=== PATIENT | male | born 2005 | race Caucasian/White ===

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

== ENCOUNTER 2024-03-28 12:22 | Emergency (ER) | payer OTHER, SELFPAY ==
[2024-03-28 12:25] VITALS: BP 133/79; PULSE 85; RESP 18; TEMP 37.5; O2SAT 99
--- NOTE | 2024-03-28 12:55 | ED.URI ---
HPI - URI/Sore Throat General Chief Complaint: Upper Respiratory Infection Stated Complaint: Cough/Sore Throat Time Seen by Provider: 03/28/24 12:50 Source: patient Mode of arrival: ambulatory Limitations: no limitations History of Present Illness HPI Narrative: Huey is a 18-year-old male patient presenting to the clinic today with complaints of runny nose, cough, and sore throat x4 days. He denies any known fever or chills. Denies chest pain or shortness of breath. MD elicited complaint: sore throat and nasal congestion Related Data Home Medications ?Medication ?Instructions ?Recorded ?Confirmed ?Last Taken ?Type albuterol sulfate 90 mcg/actuation 2 puff inhalation Q4-6H PRN 02/09/19 03/28/24 03/01/21 History aerosol inhaler (Ventolin HFA) Wheezing bupropion HCl 150 mg 24 hr tablet, 300 mg PO DAILY 03/01/21 03/28/24 03/01/21 History extended release citalopram 40 mg tablet 40 mg PO DAILY 03/01/21 03/28/24 03/01/21 History aripiprazole 5 mg tablet 5 mg PO DAILY 12/14/22 03/28/24 Unknown History ixekizumab 80 mg/mL subcutaneous 80 mg subcut MONTHLY 12/14/22 03/28/24 Unknown History auto-injector (Taltz Autoinjector) Allergies Allergy/AdvReac Type Severity Reaction Status Date / Time No Known Allergies Allergy Verified 03/28/24 12:43 Review of Systems Review of Systems: Pertinent positives per HPI. Patient denies any fever, chills, rash, headache, visual changes, dizziness, shortness of breath, chest pain, palpitations, nausea, vomiting, diarrhea, constipation, abdominal pain, or any urinary issues. [facility] [place] Past Medical History Medical History Psoriasis Asthma Surgical History Surgical History Hx of tonsillectomy Family History Family History Mother Asthma Sibling Asthma Social History Social History Second hand tobacco smoke exposure: No Comments At the time of my signature, I reviewed and agree with the nursing past medical, surgical, social, and family history. There is no relevant family history pertinent to the patient complaint. Exam Narrative: General: Well-developed, obese, in no apparent distress Head: Normocephalic, atraumatic Eyes: Pupils equally round and reactive to light bilaterally, EOM intact, sclera and conjunctive clear, no discharge, lids normal Ears: TMs intact and congested, ear canals clear, no drainage, grossly hearing normal. Nose: Nares patent, clear nasal discharge, no inflammation, no sinus tenderness. Mouth: Oral pharynx mildly red with bilateral tonsillar enlargement without lesions or masses, good dentition, MMM. Postnasal drip Neck: Supple, trachea midline, no enlargement of anterior or posterior cervical nodes, no thyroid masses or goiter palpable. Cardio: Regular rate and rhythm, s1 and s2 normal, no murmur appreciated. Resp: Clear to auscultation bilaterally, no rhonchi, rales, wheezing or rubs Course Course Emergency Course: Portions of this record may have been created with voice recognition software. Level of Care: Express Care Visit Vital Signs Vital signs: Vital Signs Temperature 37.5 C 03/28/24 12:25 Pulse Rate 85 03/28/24 12:25 Respiratory Rate 18 03/28/24 12:25 Blood Pressure 133/79 03/28/24 12:25 Pulse Oximetry 99 03/28/24 12:25 Temperature 37.5 C 03/28/24 12:25 Pulse Rate 85 03/28/24 12:25 Respiratory Rate 18 03/28/24 12:25 Blood Pressure 133/79 03/28/24 12:25 Pulse Oximetry 99 03/28/24 12:25 Vital signs reviewed MDM - URI/Sore Throat MDM Narrative Medical decision making narrative: At the time of visit patient is resting comfortably on the exam table. Patient appears to be nontoxic. Labs: COVID, influenza, and strep test were all performed. Plan: I suspect patient has URI/pharyngitis. We will send in prescription for some prednisone for the congestion. Supportive measures were discussed with the patient and they voiced understanding discharge instructions and agrees to treatment plan. Return precautions reviewed Differential Diagnosis Differential diagnosis: Likely upper respiratory infection, otitis media, sinusitis, viral infection, bronchitis, influenza, pharyngitis and other (COVID) Discharge Plan Discharge Clinical Impression: Upper respiratory infection Qualifiers: URI type: unspecified URI Qualified Code(s): J06.9 - Acute upper respiratory infection, unspecified Pharyngitis Qualifiers: Pharyngitis/tonsillitis etiology: unspecified etiology Qualified Code(s): J02.9 - Acute pharyngitis, unspecified Patient Disposition: Home, Self-Care Condition: Stable Instructions: Antibiotic Form, Pharyngitis (ED), Upper Respiratory Infection (ED) Additional Instructions: COVID, strep, and influenza testing was negative in the clinic today. Strep test was negative in the clinic today. We will send strep for culture. Take prescription medications only as prescribed-prednisone Increase fluids and stay well hydrated Tylenol/motrin for pain/fever Flonase and OTC antihistamines as directed Vicks vapor rub to open sinuses Sinus rinses for congestion Cepacol spray, cough drops, throat lozenges, warm tea with honey/lemon, gargle salt water to soothe throat BRAT diet for diarrhea Clear liquids x 24 hours then advance as tolerated for nausea/vomiting Go to the ED if you develop a worsening in your condition- high fever not controlled by Tylenol or Motrin, dehydration, weakness, lethargy, shortness of breath, or chest pain. Follow up with your PCP in 3-5 days if symptoms persist. Patient Language: Palauan Prescriptions: New prednisone 20 mg tablet 40 mg PO DAILY 5 Days Qty: 10 0RF No Action Taltz Autoinjector 80 mg/mL auto-injector 80 mg SUBCUT MONTHLY aripiprazole 5 mg tablet 5 mg PO DAILY albuterol sulfate [Ventolin HFA] 90 mcg/actuation Hfa Aerosol Inhaler 2 puff INHALATION Q4-6H PRN (Reason: Wheezing) citalopram 40 mg tablet 40 mg PO DAILY bupropion HCl 150 mg tablet extended release 24 hr 300 mg PO DAILY albuterol sulfate 90 mcg/actuation HFA aerosol inhaler 2 puff inhalation QID PRN (Reason: shortness of breath or wheezing) Qty: 6.7 0RF Follow-up/Referrals: Denis,DO Luis [Primary Care Provider] - Time of Disposition: 13:21 Quality NIHSS Nursing Documentation ED NIHSS nursing documentation: reviewed/agree
[2024-03-28 15:15] LABS: EDCOVIDSCREEN Negative (Negative); EDINFLUASCREEN Negative (Negative); EDINFLUBSCREEN Negative (Negative); EDSTREPNEGPOS1 Negative (Negative)
== END 2024-03-28 12:55 | disposition home or self-care (01) ==
PROVIDERS: Emergency Provider Nurse Practitioner Family; PCP Student in an Organized Health Care Education/Training Program
DX: J06.9 Acute upper respiratory infection, unspecified (principal); Z20.822 Contact with and (suspected) exposure to COVID-19
CPT/HCPCS: 87081; 87426; 87804; 87880; 99213; G0463

== ENCOUNTER 2024-04-16 19:19 | Emergency (ER) | payer OTHER, SELFPAY ==
--- NOTE | 2024-04-16 19:29 | ED_ITS ---
HPI - Wound/Laceration General Chief Complaint: Wound/Laceration Stated Complaint: left thumb injury Time Seen by Provider: 04/16/24 19:26 Source: patient and RN notes reviewed Mode of arrival: ambulatory Limitations: no limitations History of Present Illness HPI narrative: 18-year-old male presents with concern for laceration to the tip of the 1st digit of the left hand. Reports just prior to arrival he was making a final would err week are when he cut the finger with a chisel. He is up-to-date on his tetanus vaccination. Related Data Home Medications ?Medication ?Instructions ?Recorded ?Confirmed ?Last Taken ?Type albuterol sulfate 90 mcg/actuation 2 puff inhalation Q4-6H PRN 02/09/19 03/28/24 03/01/21 History aerosol inhaler (Ventolin HFA) Wheezing bupropion HCl 150 mg 24 hr tablet, 300 mg PO DAILY 03/01/21 03/28/24 03/01/21 History extended release citalopram 40 mg tablet 40 mg PO DAILY 03/01/21 03/28/24 03/01/21 History aripiprazole 5 mg tablet 5 mg PO DAILY 12/14/22 03/28/24 Unknown History ixekizumab 80 mg/mL subcutaneous 80 mg subcut MONTHLY 12/14/22 03/28/24 Unknown History auto-injector (Taltz Autoinjector) Allergies Allergy/AdvReac Type Severity Reaction Status Date / Time No Known Allergies Allergy Verified 04/16/24 19:28 Review of Systems 2 Review of Systems: CONSTITUTIONAL: Denies malaise, chills, sweats, or fever. SKIN: Reports laceration to the 1st digit of the left hand MUSCULOSKELETAL: Denies muscle skeletal pain NEUROLOGIC: Denies numbness, weakness All systems reviewed & are unremarkable except as noted in HPI and below PMFSH Past Medical History Medical History Psoriasis Asthma Surgical History Surgical History Hx of tonsillectomy Family History Family History Mother Asthma Sibling Asthma Social History Social History Second hand tobacco smoke exposure: No Comments At time of signature, agree with nursing past medical, surgical, social and family history. There is no relevant family history pertinent to the presenting complaint Exam 2 Narrative: GENERAL: Well-appearing, well-nourished, and in no acute distress. HEAD: Normocephalic, atraumatic. EYES: PERRLA, conjunctivae clear, and EOMI. ENT: Mucous membranes moist. NECK: Supple. No lymphadenopathy CHEST: Clear to auscultation. No respiratory distress. HEART: Regular rate and rhythm. SKIN: Warm, dry. 1 cm superficial linear laceration noted to the distal 1st digit of the left hand on the palmar aspect NEURO: Alert and oriented x3. PSYCH: Normal mood and affect Extrem: Hand/finger images: 1. 1 cm superficial linear laceration noted to the distal 1st digit of the left hand on the palmar aspect Course Course Emergency Course: Patient is aware of diagnosis, understands and agrees to treatment plan. Anticipatory guidance given. Patient agrees to follow-up as directed and is aware of reasons to seek care at the emergency department. Portions of this record may have been created with voice recognition software Level of Care: Express Care Visit Vital Signs Vital signs: Vital Signs Temperature 98.1 F 04/16/24 19:30 Pulse Rate 98 04/16/24 19:30 Respiratory Rate 16 04/16/24 19:30 Blood Pressure 152/86 H 04/16/24 19:30 Pulse Oximetry 99 04/16/24 19:30 Oxygen Delivery Room Air 04/16/24 19:30 Temperature 98.1 F 04/16/24 19:30 Pulse Rate 98 04/16/24 19:30 Respiratory Rate 16 04/16/24 19:30 Blood Pressure 152/86 H 04/16/24 19:30 Pulse Oximetry 99 04/16/24 19:30 Oxygen Delivery Room Air 04/16/24 19:30 Reviewed. Procedures Laceration Laceration 1: Date: 04/16/24 Time: 19:30 Site: hand Side (If applicable): left Size (cm): 1 Description: linear Depth: simple, single layer Pre-repair: irrigated ====== Skin Level ====== Skin layer closed with: dermabond ====== Subcutaneous Layer ====== ====== Muscle Layer ====== ====== Tendon Layer ====== MDM - Wound/Laceration MDM Narrative Medical decision making narrative: Wound explored for foreign body and copious irrigation provided with no evidence of FB. Discussed the potential of retained foreign body with the patient and signs/symptoms that should prompt the patient to immediately go to the ED for reevaluation. The laceration was identified to be [XXX] cm in length and located at [XXX]. The laceration was cleansed with [XXX] and no debris was noted. Local anesthesia was obtained by injecting 1% lidocaine at the laceration site. The laceration was then irrigated with 500cc of high-pressure irrigation. The wound was explored and no foreign bodies were found. There was no evidence of tendon or nerve lacerations. The wound was closed with [ XXX suture type, number, and technique]. A sterile dressing was then applied and anticipatory guidance was provided. Tetanus prophylaxis [(was/was not)] given Differential Diagnosis Differential diagnosis: Likely laceration, abrasion and avulsion of skin Critical Care Time Critical Care Time Critical Care Time: No Discharge Plan Discharge Clinical Impression: Finger laceration Patient Disposition: Home, Self-Care Condition: Stable Instructions: Finger Laceration (ED) Additional Instructions: Skin adhesive care: -adhesive works like a bandage; do not use antibiotic ointment as it can break down the adhesive -You can shower while the adhesive is on your skin, but do not take a bath or soak or scrub the area for 7-10 days. Dry your skin by patting it gently with a towel. -The adhesive will peel off on its own; usually by 5-10days. If after 10 days, you still have adhesive on you, you can use antibiotic ointment or petroleum jelly to get it off. After you heal, you should protect the scar from the sun. Use sunscreen on the area or wear clothes or a hat that covers the scar. Follow up with your PCP as needed If you have any worsening of symptoms, redness, swelling, fever, or drainage, or any other concerns please follow up with your PCP or go to the ED immediately. Patient Language: Romanian Prescriptions: No Action Taltz Autoinjector 80 mg/mL auto-injector 80 mg SUBCUT MONTHLY aripiprazole 5 mg tablet 5 mg PO DAILY albuterol sulfate [Ventolin HFA] 90 mcg/actuation Hfa Aerosol Inhaler 2 puff INHALATION Q4-6H PRN (Reason: Wheezing) citalopram 40 mg tablet 40 mg PO DAILY bupropion HCl 150 mg tablet extended release 24 hr 300 mg PO DAILY albuterol sulfate 90 mcg/actuation HFA aerosol inhaler 2 puff inhalation QID PRN (Reason: shortness of breath or wheezing) Qty: 6.7 0RF prednisone 20 mg tablet 40 mg PO DAILY 5 Days Qty: 10 0RF Follow-up/Referrals: Denis,DO Luis [Primary Care Provider] - Time of Disposition: 19:35
[2024-04-16 19:30] VITALS: BP 152/86; PULSE 98; RESP 16; TEMP 36.7; O2SAT 99
== END 2024-04-16 19:40 | disposition home or self-care (01) ==
PROVIDERS: Emergency Provider Nurse Practitioner; PCP Student in an Organized Health Care Education/Training Program
DX: S61.012A Laceration without foreign body of left thumb without damage to nail, initial encounter (principal); W27.0XXA Contact with workbench tool, initial encounter; J45.909 Unspecified asthma, uncomplicated; L40.9 Psoriasis, unspecified
CPT/HCPCS: 12001; 99212; G0463

== ENCOUNTER 2024-07-06 15:46 | Emergency (ER) | payer OTHER, SELFPAY ==
[2024-07-06 15:55] VITALS: PULSE 88
[2024-07-06 15:57] VITALS: BP 107/78; PULSE 149; RESP 18; TEMP 36.8; O2SAT 97
--- NOTE | 2024-07-06 16:18 | PC.NURSE ---
1550 HEART RATE APICALLY 88.
[2024-07-06 16:25] LABS: EDCOVIDSCREEN Negative (Negative); EDINFLUASCREEN Negative (Negative); EDINFLUBSCREEN Negative (Negative)
--- NOTE | 2024-07-06 16:35 | ED.URI ---
HPI - URI/Sore Throat General Chief Complaint: Upper Respiratory Infection Stated Complaint: cough,congestion,pain in back Time Seen by Provider: 07/06/24 16:26 Source: patient and RN notes reviewed Mode of arrival: ambulatory Limitations: no limitations History of Present Illness HPI Narrative: Patient presents today complaining of 3 day history of nasal congestion and postnasal drip, with a 2 day history of cough and shortness of breath, with some mid back pain since yesterday. Denies fever or known sick contacts. History of asthma. He has been using Kristy and albuterol nebulizer treatments without much relief. Last treatment was approximately 3 hours prior to arrival. Related Data Home Medications ?Medication ?Instructions ?Recorded ?Confirmed ?Last Taken ?Type bupropion HCl 150 mg 24 hr tablet, 300 mg PO DAILY 03/01/21 03/28/24 03/01/21 History extended release citalopram 40 mg tablet 40 mg PO DAILY 03/01/21 03/28/24 03/01/21 History aripiprazole 5 mg tablet 5 mg PO DAILY 12/14/22 03/28/24 Unknown History ixekizumab 80 mg/mL subcutaneous 80 mg subcut MONTHLY 12/14/22 03/28/24 Unknown History auto-injector (Taltz Autoinjector) Allergies Allergy/AdvReac Type Severity Reaction Status Date / Time No Known Allergies Allergy Verified 07/06/24 16:28 Review of Systems Review of Systems: CONSTITUTIONAL: Denies body aches, fever, chills, or sweats. EYES: Denies visual changes, redness, or discharge. ENT: + congestion, postnasal drip. CARDIOVASCULAR: Denies chest pain, palpitations, or edema. RESPIRATORY:+ cough, shortness of breath GASTROINTESTINAL: Denies abdominal pain, nausea, vomiting, or diarrhea. GENITOURINARY: Denies dysuria or hematuria. SKIN: Denies rash, itching, or wounds. MUSCULOSKELETAL: Deniesjoint pain, or myalgia.+ midback pain NEUROLOGIC: Denies headache, numbness, tingling, or weakness. PSYCH: Denies depression or anxiety. [facility] Past Medical History Medical History Psoriasis Asthma Surgical History Surgical History Hx of tonsillectomy Family History Family History Mother Asthma Sibling Asthma Social History Social History Second hand tobacco smoke exposure: No Comments At time of signature, I have reviewed and agree with nursing past medical, surgical, social and family history unless otherwise noted. Please see nursing chart for further information. There is no relevant family history pertinent to the presenting complaint Exam Narrative: GENERAL: Well-appearing, well-nourished, and in no acute distress. HEAD: Normocephalic, atraumatic. EYES: EOMI. No redness or drainage. Conjunctivae normal. ENT: Mucous membranes pink and moist. Nares clear. No rhinorrhea. TMs normal bilaterally. Throat normal. Uvula midline. NECK: Normal AROM. Supple. No lymphadenopathy. CHEST: No respiratory distress. Clear to auscultation. HEART: Regular rate and rhythm. No murmur appreciated. EXTREMITIES: Normal range of motion. No edema. SKIN: Warm, dry, no rash. Capillary refill normal. Normal skin turgor. NEURO: No focal deficits. Alert and oriented x3. Gait steady. PSYCH: Normal affect. No signs of depression or anxiety. Course Course Level of Care: Express Care Visit Vital Signs Vital signs: Vital Signs Pulse Rate 88 07/06/24 15:55 Temperature 98.2 F 07/06/24 15:57 Pulse Rate 149 H 07/06/24 15:57 Respiratory Rate 18 07/06/24 15:57 Blood Pressure 107/78 07/06/24 15:57 Pulse Oximetry 97 07/06/24 15:57 Oxygen Delivery Room Air 07/06/24 15:57 Reviewed MDM - URI/Sore Throat MDM Narrative Medical decision making narrative: COVID and influenza negative. Patient declines albuterol nebulizer treatment. He will be given a dose of dexamethasone and prescription for prednisone and Augmentin as he is immunosuppressed and uses Taltz for his psoriasis with increased risk for secondary bacterial infection from upper respiratory illness. Differential Diagnosis Differential diagnosis: Likely upper respiratory infection, viral infection, influenza and other (COVID, pneumonia, asthma exacerbation) Lab Data Attestation: I reviewed the patient's lab results. Labs: Lab Results 07/06/24 Range/Units 16:23 POC Influenza A Ag Negative (Negative) POC Influenza B Ag Negative (Negative) POC SARS CoV-2 Ag Negative (Negative) Critical Care Time Critical Care Time Critical Care Time: No Discharge Plan Discharge Clinical Impression: Upper respiratory infection Qualifiers: URI type: unspecified URI Qualified Code(s): J06.9 - Acute upper respiratory infection, unspecified Asthma exacerbation Qualifiers: Asthma severity: unspecified severity Asthma persistence: unspecified Qualified Code(s): J45.901 - Unspecified asthma with (acute) exacerbation Patient Disposition: Home, Self-Care Condition: Stable Instructions: Upper Respiratory Infection (DC) Additional Instructions: Please take the Augmentin and prednisone as directed. Start the prednisone tomorrow morning. Continue your albuterol nebulizer treatments as well. Start Mucinex to help break up any chest congestion. As discussed, if your symptoms worsen, please go to the ER for further evaluation. Patient Language: Luxembourgish Prescriptions: New prednisone 50 mg tablet 50 mg PO DAILY 5 Days Qty: 5 0RF amoxicillin-pot clavulanate 875-125 mg tablet 1 tablet PO Q12H 7 Days Qty: 14 0RF No Action Taltz Autoinjector 80 mg/mL auto-injector 80 mg SUBCUT MONTHLY aripiprazole 5 mg tablet 5 mg PO DAILY citalopram 40 mg tablet 40 mg PO DAILY bupropion HCl 150 mg tablet extended release 24 hr 300 mg PO DAILY Follow-up/Referrals: Denis,DO Luis [Primary Care Provider] - Stand Alone Forms: Work/School Release IP Time of Disposition: 16:57
[2024-07-06] MEDS: dexAMETHasone SOD PHOS INJ 10 MG/ML 1 ML VIAL IM (17:01)
== END 2024-07-06 17:05 | disposition home or self-care (01) ==
PROVIDERS: Emergency Provider Nurse Practitioner; PCP Student in an Organized Health Care Education/Training Program
DX: J06.9 Acute upper respiratory infection, unspecified (principal); J45.901 Unspecified asthma with (acute) exacerbation; Z20.822 Contact with and (suspected) exposure to COVID-19; L40.9 Psoriasis, unspecified
CPT/HCPCS: 87426; 87804; 99213; G0463; J1100

== ENCOUNTER 2024-07-16 09:41 | Emergency (ER) | payer OTHER, SELFPAY ==
[2024-07-16 09:50] VITALS: BP 152/77; PULSE 81; RESP 19; TEMP 36.2; O2SAT 98
--- NOTE | 2024-07-16 10:23 | ED_ITS ---
HPI - Nausea/Vomiting/Diarrhea General Chief complaint: Nausea/Vomiting/Diarrhea Stated complaint: Vomiting Time Seen by Provider: 07/16/24 10:15 Source: patient and RN notes reviewed Mode of arrival: ambulatory Limitations: no limitations History of Present Illness HPI Narrative: Patient presents today requesting a note to return to work. He has been on [place] for the past month and has had some intermittent vomiting. His work keep sending him home. States he vomits every day, 1-3 times per day. He does have an appointment tomorrow with his doctor to discuss this. Denies abdominal pain, fever, or any additional symptoms. He does have some nausea medication at the pharmacy, but has not yet picked it up. Related Data Home Medications ?Medication ?Instructions ?Recorded ?Confirmed ?Last Taken ?Type citalopram 40 mg tablet 40 mg PO DAILY 03/01/21 03/28/24 03/01/21 History ixekizumab 80 mg/mL subcutaneous 80 mg subcut MONTHLY 12/14/22 03/28/24 Unknown History auto-injector (Taltz Autoinjector) aripiprazole 10 mg tablet mg 07/16/24 Unknown History bupropion HCl 300 mg 24 hr tablet, mg PO 07/16/24 Unknown History extended release ergocalciferol (vitamin D2) 1,250 07/16/24 Unknown History mcg (50,000 unit) capsule pantoprazole 40 mg tablet,delayed mg PO 07/16/24 Unknown History release Allergies Allergy/AdvReac Type Severity Reaction Status Date / Time No Known Allergies Allergy Verified 07/16/24 09:43 Review of Systems Review of Systems: CONSTITUTIONAL: Denies body aches, fever, chills, or sweats. EYES: Denies visual changes, redness, or discharge. ENT: Denies rhinorrhea, congestion, sore throat, or otalgia. CARDIOVASCULAR: Denies chest pain, palpitations, or edema. RESPIRATORY: Denies cough or dyspnea. GASTROINTESTINAL: Denies abdominal pain, or diarrhea.+ nausea and vomiting GENITOURINARY: Denies dysuria or hematuria. SKIN: Denies rash, itching, or wounds. MUSCULOSKELETAL: Denies back pain, joint pain, or myalgia. NEUROLOGIC: Denies headache, numbness, tingling, or weakness. PSYCH: Denies depression or anxiety. [facility] Past Medical History Medical History Psoriasis Asthma Surgical History Surgical History Hx of tonsillectomy Family History Family History Mother Asthma Sibling Asthma Social History Social History Second hand tobacco smoke exposure: No Comments At time of signature, I have reviewed and agree with nursing past medical, surgical, social and family history unless otherwise noted. Please see nursing chart for further information. There is no relevant family history pertinent to the presenting complaint Exam Narrative: GENERAL: Well-appearing, well-nourished, and in no acute distress. HEAD: Normocephalic, atraumatic. EYES: EOMI. No redness or drainage. Conjunctivae normal. ENT: Mucous membranes pink and moist. NECK: Normal AROM. CHEST: No respiratory distress. Clear to auscultation. HEART: Regular rate and rhythm. No murmur appreciated. ABDOMEN: Soft, nontender, nondistended, normal active bowel sounds. EXTREMITIES: Normal range of motion. No edema. SKIN: Warm, dry, no rash. Capillary refill normal. Normal skin turgor. NEURO: No focal deficits. Alert and oriented x3. Gait steady. PSYCH: Normal affect. No signs of depression or anxiety. Course Course Level of Care: Express Care Visit Vital Signs Vital signs: Vital Signs Temperature 97.2 F L 07/16/24 09:50 Pulse Rate 81 07/16/24 09:50 Respiratory Rate 19 07/16/24 09:50 Blood Pressure 152/77 H 07/16/24 09:50 Pulse Oximetry 98 07/16/24 09:50 Oxygen Delivery Room Air 07/16/24 09:50 Temperature 97.2 F L 07/16/24 09:50 Pulse Rate 81 07/16/24 09:50 Respiratory Rate 19 07/16/24 09:50 Blood Pressure 152/77 H 07/16/24 09:50 Pulse Oximetry 98 07/16/24 09:50 Oxygen Delivery Room Air 07/16/24 09:50 Reviewed MDM - Nausea/Vomiting/Diarrhea MDM Narrative Medical decision making narrative: Patient has an appointment to follow-up with his prescribing physician tomorrow. He has an antiemetic prescription waiting at his pharmacy. Urged him to pick it up and take it in times of nausea. Will provide him with a work note to return tomorrow. Differential Diagnosis Differential diagnosis: Likely gastroenteritis, dehydration and other (Medication reaction) Critical Care Time Critical Care Time Critical Care Time: No Discharge Plan Discharge Clinical Impression: Nausea & vomiting Qualifiers: Vomiting type: unspecified Qualified Code(s): R11.2 - Nausea with vomiting, unspecified Patient Disposition: Home Condition: Stable Instructions: Acute Nausea and Vomiting (DC) Additional Instructions: Make sure your staying hydrated and in between vomiting episodes. supervisor shipping your nausea medicine at the pharmacy. Please keep your appointment tomorrow to follow-up with your doctor. Your blood pressure was elevated above 120/80 today at Urgent Care. This puts you above the threshold for follow up. Please schedule a followup visit with your personal physician as soon as possible, for further evaluation and treatment. Even blood pressure exceeding 120/80 may indicate pre-hypertension. Patient Language: Azeri Prescriptions: No Action Taltz Autoinjector 80 mg/mL auto-injector 80 mg SUBCUT MONTHLY citalopram 40 mg tablet 40 mg PO DAILY pantoprazole 40 mg tablet,delayed release (DR/EC) PO ergocalciferol (vitamin D2) 1,250 mcg (50,000 unit) capsule aripiprazole 10 mg tablet bupropion HCl 300 mg tablet extended release 24 hr PO Follow-up/Referrals: Denis,DO Luis [Primary Care Provider] - Stand Alone Forms: Work/School Release IP Time of Disposition: 10:22
== END 2024-07-16 10:25 | disposition home or self-care (01) ==
PROVIDERS: Emergency Provider Nurse Practitioner; PCP Student in an Organized Health Care Education/Training Program
DX: R11.2 Nausea with vomiting, unspecified (principal); J45.909 Unspecified asthma, uncomplicated; L40.9 Psoriasis, unspecified
CPT/HCPCS: 99213; G0463

== ENCOUNTER 2024-08-10 20:19 | Emergency (ER) | payer OTHER, SELFPAY ==
--- NOTE | ~2024-08-10 | CT_ITS ---
CT of the Abdomen and Pelvis: Indication: Abdominal pain Technique: 2.5 mm axial scans were obtained through the abdomen and pelvis following intravenous adm inistration of 100 cc of Omnipaque 350. Dose reduction technique was used on this scan by utilizing a utomated exposure control and iterative reconstruction technique. The dose-length product (DLP) was 2 017.36 mGy-cm. Findings: Scans through the lung bases are unremarkable. The liver, spleen, pancreas, gallbladder, adrenals and kidneys are within normal limits. No evidence of aortic aneurysm. No lymphadenopathy. No bowel obstruction or bowel wall thickening. There is no evidence to suggest acute appendicitis. Images through the pelvis were performed. Urinary bladder unremarkable. No pelvic mass seen. No ascit es. Impression: No significant abnormalities seen. Reviewed, dictated and finalized at location . Impression: No significant abnormalities seen.
--- OUTSIDE RECORDS SUMMARY | 2024-08-10 20:22 | XMS_ITS | Patient Health Record ---
Author Organization [facility] Address [address] [address] Care Team Providers Care Manager Access Name Role Phone Monica Chi Primary Care Provider [phone] Allergies No Known Allergies Results Component Value Reference Range Notes DEXAMETHASONE (Not yet revie wed by provider) Interpretation: Performing Lab:[facility],, [address] [place], [address] Joellen Jain MD,PhD,[place] Notes/Report: FASTING:YES FASTING: YES DEXAMETHASONE 200 Reference Ranges for Dexamethasone: Baseline: Less than 20 ng/dL 1 mg dexamethasone overnight: 180-550 ng/dL (8:00-10:00 AM) This test was developed and its analytical performance characteristics have been determined by [facility]. It has not been cleared or approved by FDA. This assay has been validated pursuant to the CLIA regulations and is used for clinical purposes. CORTISOL, TOTAL Reviewed date:05/01/2024 02:46:50 PM Interpretation: Performing Lab:[facility], [address] [place], [address] Ronnie Maldonado MD Notes/Report: FASTING:YES FASTING: YES ACTH, PLASMA (Not yet review ed by provider) Interpretation: Performing Lab:[facility], [address], [place], [address] Keshawn Dumont M.D.,PhD Notes/Report: FASTING:YES FASTING: YES FABY IFA SCREEN W/REFL TO TIT ER AND PATTERN, IFA (Not yet reviewed by provider) Interpretation: Performing Lab:[facility], [address] [place], [address] Ronnie Maldonado MD Notes/Report: FASTING:YES FASTING: YES THYROID PEROXIDASE ANTIBODIE S (Not yet reviewed by provider) Interpretation: Performing Lab:CB, [facility], [address] [facility] [place], [address] James Kamara Jason Notes/Report: FASTING:YES FASTING: YES THYROID PEROXIDASE ANTIBODIES 1 <9 IU/mL TESTOSTERONE, FREE (DIALYSIS ) AND TOTAL,MS (Not yet reviewed by provider) Interpretation: Performing Lab:[facility], [facility], [address], [address], [place], [address] Ricki Rodriguez MD,PhD Notes/Report: FASTING:YES FASTING: YES TESTOSTERONE, TOTAL, MS 034 711-4021 ng/dL Men with clinically significant hypogonadal symptoms and testosterone values repeatedly in the range of the 200-300 ng/dL or less, may benefit from testosterone treatment after adequate risk and benefits counseling. For additional information, please refer to https://education.Fanfou.com.Akademos/faq/ZMF234 (This link is being provided for informational/educational purposes only.) (Note) This test was developed and its analytical performance characteristics have been determined by [facility]. It has not been cleared or approved by the FDA. This assay has been validated pursuant to the CLIA regulations and is used for clinical purposes. TESTOSTERONE, FREE 39.4 35.0-155.0 pg/mL (Note) This test was developed and its analytical performance characteristics have been determined by [facility]. It has not been cleared or approved by the FDA. This assay has been validated pursuant to the CLIA regulations and is used for clinical purposes. [facility] [address] [facility] [id number] Ricki Rodriguez MD, PhD COMPREHENSIVE METABOLIC PANE L Reviewed date:05/02/2024 08:09:55 AM Interpretation: Performing Lab:, [facility], [address], [place], [address] Ronnie Maldonado Notes/Report: FASTING:YES FASTING: YES VITAMIN D, 25-HYDROXY, LC/MS /MS Reviewed date:05/02/2024 08:09:55 AM Interpretation: Performing Lab:[facility], [address], [place], [address] Ronnie Maldonado MD Notes/Report: FASTING:YES FASTING: YES T3, FREE Reviewed date:05/02/2024 08:09:55 AM Interpretation: Performing Lab:[facility], [address], [place], [address] Ronnie Maldonado MD Notes/Report: FASTING:YES FASTING: YES DHEA SULFATE Reviewed date:05/02/2024 08:09:55 AM Interpretation: Performing Lab:[facility], [address], [place], [address] Ronnie Maldonado MD Notes/Report: FASTING:YES FASTING: YES HEMOGLOBIN A1c Reviewed date:05/02/2024 08:09:55 AM Interpretation: Performing Lab:[facility], [address] [place], [address] Ronnie Maldonado Notes/Report: FASTING:YES FASTING: YES INSULIN Reviewed date:05/02/2024 08:09:56 AM Interpretation: Performing Lab:[facility], [address] [place], [address] Ronnie Maldonado MD Notes/Report: FASTING:YES FASTING: YES MAGNESIUM Reviewed date:05/02/2024 08:09:56 AM Interpretation: Performing Lab:[facility], [address] [place], [address] Ronnie Maldonado Notes/Report: FASTING:YES FASTING: YES CBC (INCLUDES DIFF/PLT) Reviewed date:05/02/2024 08:09:56 AM Interpretation: Performing Lab:[facility], [address] [place], [address] Ronnie Maldonado Notes/Report: FASTING:YES FASTING: YES VITAMIN B12/FOLATE, SERUM PA DEMARCO Reviewed date:05/02/2024 08:09:56 AM Interpretation: Performing Lab:[facility], [address] [place], [address] Ronnie Maldonado MD Notes/Report: FASTING:YES FASTING: YES IRON AND TOTAL IRON BINDING CAPACITY Reviewed date:05/02/2024 08:09:56 AM Interpretation: Performing Lab:[facility], [address], [place], [address] Ronnie Maldonado MD Notes/Report: FASTING:YES FASTING: YES LIPID PANEL Reviewed date:05/02/2024 08:09:56 AM Interpretation: Performing Lab:[facility], [address] , [place], [address] [facility] Carol Notes/Report: FASTING:YES FASTING: YES SED RATE BY MODIFIED JOAQUIN PIERCE Reviewed date:05/02/2024 08:09:56 AM Interpretation: Performing Lab:[facility], [address] [place], [address] [facility] Carol Notes/Report: FASTING:YES FASTING: YES T4, FREE Reviewed date:05/02/2024 08:09:56 AM Interpretation: Performing Lab:[facility], [address] [place], [address] [facility] Notes/Report: FASTING:YES FASTING: YES TSH Reviewed date:05/02/2024 08:09:56 AM Interpretation: Performing Lab:[facility], [address] [place], [address] [facility] Notes/Report: FASTING:YES FASTING: YES FSH (Not yet reviewed by pro vider) Interpretation: Performing Lab:[facility], [address], [place], [address] Ronnie Maldonado MD Notes/Report: LH (Not yet reviewed by prov ider) Interpretation: Performing Lab:[facility], [address], [place], [address] Ronnie Maldonado MD Notes/Report: PROLACTIN (Not yet reviewed by provider) Interpretation: Performing Lab:[facility], [address], [place], [address] VaneSandee Maldonado MD Notes/Report: TESTOSTERONE, FREE (DIALYSIS ) AND TOTAL,MS (Not yet reviewed by provider) Interpretation: Performing Lab:[facility], [facility], [address], [address], [place], [address] Ricki Rodriguez MD,PhD Notes/Report: TESTOSTERONE, TOTAL, MS [address] ng/dL Men with clinically significant hypogonadal symptoms and testosterone values repeatedly in the range of the 200-300 ng/dL or less, may benefit from testosterone treatment after adequate risk and benefits counseling. For additional information, please refer to https://education.Fanfou.com.Akademos/faq/IFL364 (This link is being provided for informational/educational purposes only.) (Note) This test was developed and its analytical performance characteristics have been determined by [facility]. It has not been cleared or approved by the FDA. This assay has been validated pursuant to the CLIA regulations and is used for clinical purposes. TESTOSTERONE, FREE 50.8 35.0-155.0 pg/mL (Note) This test was developed and its analytical performance characteristics have been determined by [facility]. It has not been cleared or approved by the FDA. This assay has been validated pursuant to the CLIA regulations and is used for clinical purposes. [facility] [address] [place] [id number] Ricki Rodriguez MD, PhD Reason For Referral No Information Medications Medication SIG (Take, Route, Fr equency, Duration) Notes Start Date End Date Status Taltz 80 MG/ML as directed Subcutaneous Active dexAMETHasone 1 MG 1 tablet Orally at 1 0 pm night before 8 am cortisol for 1 days 04/22/2024 Active Social History Tobacco Use: Social History Observation Description Date Smoking Status WARNING: Information temporarily unavailable Smoking: Question Answer Notes Patient is a: Patient uses a v ape Problems Problem Type SNOMED Code ICD Code Onset Dates Problem Status W/U Status Risk Notes Problem Obstructive sleep apnea syndrome (disorder) (38811916) Obstructive sleep apnea (adult) (pediatric) (G47.33) Active confirmed Problem Obesity (218036845) Obesity, unspecified (E66.9) Active confirmed Problem Psoriasis (2875672) Psoriasis, unspecified (L40.9) Active confirmed Problem Polyarthritis (642286092) Polyarthritis, unspecified (M13.0) Active confirmed Vital Signs Heart Rate 93 /min 04/22/2024 SPO2: 94% Blood pressure diastolic 66 mm Hg 04/22/2024 SPO 2: 94% Height 67 in 04/22/2024 SPO2: 94% Blood pressure systolic 130 mm Hg 04/22/2024 SPO2 : 94% Weight 339.4 lbs 04/22/2024 SPO2: 94% BMI 53.15 kg/m2 04/22/2024 SPO2: 94% Encounters Encounter Location Date Provider Diagnosis [facility] [employer] [address] [place] [address] 05/12/2024 Monica Chi [facility] [employer] [address] [place] [address] 04/22/2024 Monica Chi Obesity, unspecified E66.9 ; Abnormal weight gain R63.5 ; Other fatigue R53.83 ; Obstructive sleep apnea (adult) (pediatric) G47.33 ; Psoriasis, unspecified L40.9 and Polyarthritis, unspecified M13.0 Assessments Encounter Date Diagnosis (ICD Code) Assessment Notes Treatment Notes Treatment Clinical Notes Section Notes 04/22/2024 Obesity, unspecified (ICD-10 - E66.9) 04/22/2024 Abnormal weight gain (ICD-10 - R63.5) 04/22/2024 Other fatigue (ICD-10 - R53.83) 04/22/2024 Obstructive sleep apnea (adult) (pediatric) (ICD-10 - G47.33) 04/22/2024 Psoriasis, unspecified (ICD-10 - L40.9) 04/22/2024 Polyarthritis, unspecified (ICD-10 - M13.0) 04/22/2024 Other Assessment and Plan: ObesityPatient presents with significant weight gain of approximately 50 pounds since age 14, currently weighing around 330 pounds. Reports fatigue and sleep disturbances. History of sleep apnea, currently using CPAP. Family history of diabetes. No known diagnosis of diabetes or prediabetes. Considering potential hormonal imbalances and insulin resistance as contributing factors. Comprehensive lab work including blood counts, glucose, adrenal function, insulin resistance, testosterone, and full thyroid panel Dexamethasone suppression test to evaluate cortisol levels Consider Zepbound for weight loss if lab results are favorable and no contraindications Follow-up in 2-4 weeks to review results and determine treatment plan Gastrointestinal IssuesPatient reports recent history of gastrointestinal symptoms including constipation, diarrhea, and other digestive changes lasting for several months. Symptoms have largely resolved but recurred around the same time last year. No recent travel or sick contacts reported. Scheduled to see a cellophane tester next month. Await gastroenterology consultation and clearance before initiating any weight loss medications Consider further diagnostic tests based on cellophane tester's recommendations PsoriasisPatient has a known diagnosis of psoriasis and is currently being treated with Taltz (ixekizumab), likely at a dose of 40mg. Under the care of a caddy/caddie supervisor for this condition. Continue current treatment with Taltz as prescribed Maintain follow-up with caddy/caddie supervisor Cognitive SymptomsPatient reports difficulties with focus, memory, and brain fog. Symptoms began after a concussion 2-3 years ago due to a traumatic accident and have progressively worsened. No imaging studies or neurological workup mentioned. Consider referral for neurological evaluation if symptoms persist or worsen Monitor cognitive symptoms in relation to other health issues and treatments Follow-up:Schedule a follow-up appointment in 2 to 4 weeks to review lab results and assess the response to interventions for obesityEncourage patient to maintain appointments with specialists for gastrointestinal issues and psoriasisEncourage patient to contact the clinic if any new or worsening symptoms occur Spent 45 minutes preparing to see the patient (ex review of tests/chart), obtaining and / or reviewing separately obtained history, performing a medically appropriate examination and/or evaluation, counseling and educating the patient/family/caregi ralph, ordering medications, tests, or procedures, referring and communicating with other health pet caregiver, documenting clinical information in the electronic or other health record, independently interpreting results and communicating results to the patient/family/caregi ralph and care coordinating patient plan. Patient alert and oriented x 4 and aware of discussion noted above and in agreeance to plan in management of obesity, abnormal weight gain, fatigue, MICHELET, hx of fatigue and arthritis. Plan Of Treatment Pending Test Test Name Order Date ACTH, PLASMA 05/01/2024 FABY IFA SCREEN W/REFL TO TITER AND SUZIE MILAN, IFA 05/01/2024 DEXAMETHASONE 04/29/2024 FSH 05/14/2024 LH 05/14/2024 PROLACTIN 05/14/2024 THYROID PEROXIDASE ANTIBODIES 05/01/2024 TESTOSTERONE, FREE (DIALYSIS) AND TOTAL, MS 05/01/2024 TESTOSTERONE, FREE (DIALYSIS) AND TOTAL, MS 05/14/2024 Insurance Providers Payer Name Payer Address Payer Phone Subscriber Number Group Number Insured Name Patient Relationship to Insured Coverage Start Date Coverage End Date [facility] [address] [address] [place] [address] [id number] Huey Dick Self - patient is the insured Medical (General) History Surgical History Surgery Date(Month/Year) tonsillectomy- 2009 Hospitalization History Reason Date(Month/Year) broken leg and anoids-210
--- OUTSIDE RECORDS SUMMARY | 2024-08-10 20:22 | XMS_ITS | Clinical Summary ---
Author Organization [facility] Address [facility] access [facility] [place] [address] Care Team Providers Care Firer Diesel Locomotive Name Role Phone TiburcioodilonjeysonmichaelLuis Ирина SANCHEZ Primary Care Provider + Allergies No known active allergies Medications buPROPion XL 150 MG 24 hr tablet Take 1 tablet (150 mg total) by mouth daily. 02/23/20 21 Active buPROPion XL 300 MG 24 hr tablet Take 1 tablet (300 mg total) by mouth daily as needed. 02/16/20 21 Active citalopram 40 MG tablet Take 1 tablet (40 mg total) by mouth daily. 01/18/20 21 Active TALTZ 80 MG/ML Solution Auto-injector 12/10/19 23 Active ARIPiprazole (ABILIFY) 5 MG tablet Take 2 tablets (10 mg total) by mouth every morning. 01/20/20 23 Active ipratropium-albute rol (DUONEB) 0.5-2.5 (3) MG/3ML SolutionIndication s:Moderate persistent asthma with acute exacerbation (HHS/HCC),Bronchit is INHALE 3 ML BY NEBULIZER EVERY 6 HOURS NEEDED 360 mL 04/03/19 24 Active albuterol sulfate HFA 108 (90 Base) MCG/ACT inhalerIndications :Mild intermittent asthma without complication (HHS/HCC) Inhale 2 puffs into the lungs every 6 (six) hours as needed for Wheezing. Active ondansetron (ZOFRAN-ODT) 4 MG disintegrating tablet TAKE 1 TABLET (ORAL) EVERY 6 HOURS NEEDED FOR 4 DAYS 12/27/19 24 Active dicyclomine (BENTYL) 20 MG tabletIndications: Mesenteric adenitis,Epigastri c abdominal pain,Vomiting without nausea, unspecified vomiting type Take 1 tablet (20 mg total) by mouth every 6 (six) hours as needed. Do not take with Carafate. 120 tablet 01/18/20 24 Active Na sulfate-K sulfate-Mg sulfate (SUPREP BOWEL PREP KIT) 17.5-3.13-1.6 GM/177ML SolutionIndication s:Left-sided abdominal pain of unknown etiology,Diarrhea, unspecified type Take 177 mLs by mouth every 12 (twelve) hours. Per GI instructions 354 mL 02/05/20 Active CPAP DEVICE, DME,Indications:OS A (obstructive sleep apnea) 1 Device by Does not apply route nightly. 17.0 cm h2O, EPR 2. 1 Device 03/13/20 Active sucralfate (CARAFATE) 1 G tabletIndications: Epigastric abdominal pain,Vomiting without nausea, unspecified vomiting type Take 1 tablet (1 g total) by mouth 4 (four) times daily before meals and nightly. 120 tablet 03/20/20 Active pantoprazole EC (PROTONIX) 40 MG tabletIndications: Vomiting without nausea, unspecified vomiting type,Right upper quadrant pain Take 1 tablet (40 mg total) by mouth 2 (two) times a day. 60 tablet 2 03/20/20 Active naproxen (NAPROSYN) 500 MG tabletIndications: Back pain TAKE 1 TABLET BY MOUTH TWICE A DAY WITH MEALS 60 tablet 04/30/19 Active Additional Information Patient taking differently:500 mg OralAs needed, Reported on 05/26/2024 vitamin D2, ergocalciferol, (DRISDOL) 1.25 mg capsule Take 1 capsule (1.25 mg total) by mouth once a week. 05/12/19 25 Active Active Problems Problem Noted Date Diagnosed Date Left-sided abdominal pain of unknown etiology Nausea and vomiting, unspecified vomiting type 1 04/06/2023 Diarrhea, unspecified type 02/05/2024 Psoriasis 08/14/2016 Overview (03/15/2021): Onset 2016 following illness (viral vs Strep); elbows, knees, hands, feet with total BSA 5-6% 08/14/16 throat Cx neg; Taclonex; discussed clinical trials 04/06/17 improved summer, worse fall 2016, BSA 7-8% using 20 g Taclonex/mo; increase topicals; consider ixekizumab trial, MTX with close monitoring (high BMI) vs. Stelara 06/15/17 min improvement, BSA 6-7% S/P 41 g Taclonex/mo, Rx Stelara + baseline labs, if not covered consider apremilast, MTX or isotretinoin with close monitoring (high BMI) 07/09/2017 Stelara denied; phototherapy and TB testing step edit requirements; Rx Otezla [facility] ([facility]) 08/17/2012 Resolved Problems Problem Noted Date Diagnosed Date Resolved Date Bronchitis 06/08/2021 11/02/2021 Encounters Date Type Department Care Team Description 07/16/2024 Scan [facility] Scanned, Doc [facility] 07/06/2024 Scan [facility] Scanned, Doc [facility] Lab (SCAN) 07/06/2024 Scan [facility] Scanned, Doc [facility] Lab (SCAN) 05/29/2024 3:00 PM FUNDING ANALYST Anesthesia Event [facility] [address] Los Ojeda MD 05/29/2024 2:00 PM FUNDING ANALYST - 05/29/2024 2:30 PM FUNDING ANALYST Surgery [facility] [address] Igor Lara MD COLONOSCOPY 05/29/2024 1:02 PM FUNDING ANALYST - 05/29/2024 4:18 PM FUNDING ANALYST Hospital Encounter [facility] [place] [address] Igor aLra MD Discharge Disposition: Home or Self Care (Routine Discharge) 05/29/2024 Travel 05/19/2024 11:59 PM FUNDING ANALYST Anesthesia Event [facility] [address] [place] [address] Nanda Moseley CRNA 05/19/2024 [facility] [address], [address] [place] [address] Igor Lara MD Prior Authorization (Colonoscopy-[id number]) 05/19/2024 Telephone [facility] [address] [place] [address] Igor Lara MD Schedule Procedure 05/19/2024 Telephone [facility] [address] [place] [address] Dinah Kincaid RN Cancel Procedure (Anes cancel) from Last 3 Months Immunizations Immunization Administration Dates Next Due DTaP-IPV (Kinrix) 11/25/2009 Dtap (Acel-Immune) 01/02/2006, 5,01/17/2005,11/21 Fluzone 6 Months+ Quad (0.5 mL Prefilled Syringe) 05/04/2022,03/15/2021 HPV GARDASIL 9-VALENT 11/21/2018,09/10/2017 Hepatitis A (Generic) 10/19/2006,04/03/2006 Hepatitis A (Havrix [address]) 10/19/2006, 007 Hepatitis B Pediatric 03/23/2005, 005,2004,09/16 Hib (Omni-Hib) 01/02/2006, 5,01/17/2005,11/21 Hib Vaccine, Hboc 01/02/2006, 5,01/17/2005,11/21 Influenza (Generic) 01/17/2016, 3,02/06/2012,01/19,01/23/2009,03/11/2008,02/22/2007 ,01/02/2006,04/24/2005,03/23/2005 Influenza Adult (Generic) 01/12/2020,04/03/2017 MMR (MMRII) 11/05/2008,09/21/2005 Meningococcal (Menactra) 03/15/2021 Pneumococcal (Prevnar 20) 05/04/2022 Pneumococcal (Prevnar 7) 01/01/2006,03/03,01/17/2005,11/21 Polio IPV (Ipol) 01/02/2006, 5,01/17/2005,11/21 Tdap (Adacel) 03/15/2021 Tdap (Generic) 01/02/2006 Varicella (Varivax) 11/05/2008,09/21/2005 Family History Medical History Relation Comments Hypertension Father No Known Problems Mother Diabetes Other Relation Status Comments Father Alive Mother Alive Other Social History Tobacco Use Types Packs/Day Years Used Date Smoking Tobacco: Every Day Cigarettes Smokeless Tobacco: Never Tobacco Cessation:Ready to Q uit: Not Asked; Counseling Given: Not Answered Comments:using a vape product, trying to quit Alcohol Use Standard Drinks/Week Comments Never 0 (1 standard drink = 0.6 oz pur e alcohol) PHQ-2 Answer Date Recorded Patient Health Questionnaire-2 Score 1 02/05/2024 Sex and Gender Information Value Date Recorded Sex Assigned at Male 03/24/2024 7:29 AM FUNDING ANALYST Legal Sex Male 6:21 PM CDT Gender Identity Male 03/24/2024 7:29 AM FUNDING ANALYST Sexual Orientation Straight 03/15/2021 9: 04 AM FUNDING ANALYST Last Filed Vital Signs Vital Sign Reading Time Taken Comments Blood Pressure 115/65 05/29/2024 3:55 PM FUNDING ANALYST Pulse 77 05/29/2024 3:55 PM FUNDING ANALYST Temperature 36.7 C (98.1 F) 05/29/2024 3:23 PM FUNDING ANALYST Respiratory Rate 22 05/29/2024 3:55 PM FUNDING ANALYST Oxygen Saturation 97% 05/29/2024 3:55 PM FUNDING ANALYST Inhaled Oxygen Concentration - - Weight 155.6 kg (343 lb) 05/26/2024 10:59 AM FUNDING ANALYST Height 170.2 cm (5' 7 ) 05/26/2024 10:59 AM FUNDING ANALYST Body Mass Index 53.72 05/26/2024 10:59 AM FUNDING ANALYST Plan of Treatment Health Maintenance Due Date Last Done Comments Meningococcal B Vaccine (1 of 2 - Standard) 2020 Annual Physical 11/02/2022 11/02/2021, 03/15/2021 PHQ-2 (Physician [place]) 04/02/2024 02/05/2024 COVID-19 Vaccine (1 - season) 2024 Postponed from 12/02/2023 (Patient Refused) DTaP, Tdap and Td Vaccines (7 - Td or Tdap) 03/15/2031 03/15/2021, 11/25/2009, 01/02/2006, Additional history exists Hepatitis B Vaccines Completed 03/23/2005, 01/17/2005, 2004, Additional history exists HPV Vaccines Completed 11/21/2018, 09/10/2017 Meningococcal Vaccine Completed 03/15/2021 Pneumococcal Vaccine: Pediatrics (0 to 5 Years) and At-Risk Patients (6 to 49 Years) Completed 05/04/2022, 01/01/2006, 03/23/2005, Additional history exists Hepatitis C Completed 05/31/2022 RSV Immunizations Under 20 Months Aged Out No longer eligible based on patient's age to complete this topic Procedures Procedure Name Priority Date/Time Associated Diagnosis Comments OUTSIDE LAB COVID-19 (SCAN ORDER) Routine 07/06/2024 OUTSIDE LAB (SCAN ORDER) 07/06/2024 UPPER GI ENDOSCOPY,DIAGNOSIS 05/29/2024 3:00 PM FUNDING ANALYST Left-sided abdominal pain of unknown etiology Nausea and vomiting, unspecified vomiting type Diarrhea, unspecified type COLONOSCOPY 05/29/2024 3:00 PM FUNDING ANALYST Left-sided abdominal pain of unknown etiology Nausea and vomiting, unspecified vomiting type Diarrhea, unspecified type EGD Routine 05/29/2024 1:22 PM FUNDING ANALYST COLONOSCOPY Routine 05/29/2024 1:22 PM FUNDING ANALYST HEP C SCANNED ORDERS Routine 05/31/2022 from Last 3 Months or Most Recently Relevant to Health Maintenance Results * OUTSIDE LAB COVID-19 (07/06/2024) CORONAVIRUS SARS COV 2 PCR (RESP) NOT DETECTED NOT DETECTED [facility] 07/06/2024 [facility] Scanned SCANNING Final Resu lt [facility] * OUTSIDE LAB (SCAN ORDER) (07/06/2024) 07/06/2024 [facility] Scanned SCANNING Final Resu lt * HEP C SCANNED ORDERS (05/31/2022) [facility] Scanned SCANNING Final Resu lt [facility] from Last 3 Months or Most Recently Relevant to Health Maintenance Insurance [address] [place] [id number] Care Teams Firer Diesel Locomotive Relationship Specialty Start Date End Date Luis Barrios DO [address] [place] [id number] PCP - General FAMILY PRACTICE 03/15/21
--- OUTSIDE RECORDS SUMMARY | 2024-08-10 20:22 | XMS_ITS | Encounter Summary ---
Author Organization [facility] Address [address] [place] [address] Care Team Providers Care Emergency Spill Response Technician Name Role Phone Luis Barrios DO Primary Care Provider + Encounter Details Date Type Department Care Team (Late st Contact Info) Description 06/22/2021 MyChart Message Enc [facility] Family & Internal Medicine [facility] [address] [place] [address] Luis Barrios DO [address] [place], [place] [phone] Anxiety/ Depression Social History Tobacco Use Types Packs/Day Years Used Date Smoking Tobacco: Never Smokeless Tobacco: Never Alcohol Use Standard Drinks/Week Comments Never 0 (1 standard drink = 0.6 oz pur e alcohol) PHQ-2 Answer Date Recorded PHQ-2 Score - If the patient scores above 3, please move on to questions 3-9 3 03/15/2021 Sex and Gender Information Value Date Recorded Sex Assigned at Male 03/24/2024 7:29 AM SUPERVISOR BRAIDING Legal Sex Male 6:21 PM CDT Gender Identity Male 03/24/2024 7:29 AM SUPERVISOR BRAIDING Sexual Orientation Straight 03/15/2021 9: 04 AM SUPERVISOR BRAIDING COVID-19 Exposure Response Date Recorded In the last 10 days, have yo u been in contact with someone who was confirmed or suspected to have Coronavirus/COVID-19? No / Unsure 06/08/2021 9:02 AM SUPERVISOR BRAIDING documented as of this encounter Progress Notes * Luis Barrios DO - 06/22/2021 11:08 AM CDT Can do [facility] in [place]. OK to send list of resources handout as well. documented in this encounter Plan of Treatment Not on file documented as of this encounter Visit Diagnoses Not on filedocumented in this encounter Additional Health Concerns Infection Onset Date Last Indicated Resolved Time COVID-19 Rule Out 04/27/2022 04/27/2022 04/27/2022 10:28 AM SUPERVISOR BRAIDING COVID-19 Rule Out 03/06/2023 03/06/2023 03/06/2023 11:22 AM SUPERVISOR BRAIDING COVID-19 Rule Out 03/06/2023 03/06/2023 03/07/2023 6:23 PM SUPERVISOR BRAIDING COVID-19 Rule Out 07/04/2023 07/04/2023 07/04/2023 3:00 PM CDT Assessment Noted Time PHQ-9 Depression Total Score: 15 021 8:42 AM SUPERVISOR BRAIDING documented as of this encounter Care Teams Emergency Spill Response Technician Relationship Specialty Start Date End Date Luis Barrios DO [address] [place] [id number] PCP - General FAMILY PRACTICE 03/15/21 documented as of this encounter
--- OUTSIDE RECORDS SUMMARY | 2024-08-10 20:23 | XMS_ITS | Referral Summary ---
Author Organization [facility] Address [address] [place] [address] Care Team Providers Care Seismic Interpreter Name Role Phone Rahel Aiken MD Primary Care Provider [phone] Allergies No known active allergies Medications albuterol HFA (Proventil HFA) 90 mcg/actuation inhaler Active Qvar RediHaler 40 mcg/actuation inhaler 9 Active montelukast (Singulair) 10 mg tablet Active Stelara injection Inject under the skin every 3 (three) months 0 Active citalopram (CeleXA) 40 mg tablet Take 40 mg by mouth daily 1 Active buPROPion XL (WELLBUTRIN XL) 150 mg 24 hr tablet Take 150 mg by mouth daily 1 Active buPROPion XL (WELLBUTRIN XL) 300 mg 24 hr tablet Take 300 mg by mouth daily 1 Active ondansetron ODT (ZOFRAN-ODT) 4 mg disintegrating tablet Dissolve 1 tablet oral every 4 hours as needed for nausea or vomiting. 15 tablet 4 Active ondansetron ODT (ZOFRAN-ODT) 4 mg disintegrating tablet Take 1 tablet (4 mg total) by mouth every 8 (eight) hours as needed for nausea or vomiting 13 tablet 4 Active Active Problems Problem Noted Date Diagnosed Date Psoriasis 05/22/2019 Lactose intolerance 05/22/2019 Obesity 12/01/2016 Social History Tobacco Use Types Packs/Day Years Used Date Smoking Tobacco: Never Smokeless Tobacco: Never Alcohol Use Standard Drinks/Week Comments Defer 0 (1 standard drink = 0.6 oz pur e alcohol) Personal Safety Answer Date Recorded Have you ever been in or are you currently in a harmful physical or emotional relationship or is someone making you feel afraid or unsafe? 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 Gender Identity Not on file Sexual Orientation Not on file Last Filed Vital Signs Vital Sign Reading Time Taken Comments Blood Pressure 141/83 01/17/2024 4:00 AM CDT Pulse 82 01/17/2024 4:00 AM CDT Temperature 36.2 C (97.2 F) 01/17/2024 12:03 AM CDT Respiratory Rate 15 01/17/2024 4:00 AM CDT Oxygen Saturation 95% 01/17/2024 4:00 AM CDT Inhaled Oxygen Concentration - - Weight 149 kg (328 lb 7.8 oz) 01/17/2024 12:03 A M CDT Height 170.2 cm (5' 7 ) 01/14/2024 11:02 PM CDT Body Mass Index 51.45 01/14/2024 11:02 PM CDT Plan of Treatment Not on file Insurance [facility] CHOICE PLUS [facility] H[facility]/PPO Address: [address] [address] [place] [address] [facility] PPO Care Teams Seismic Interpreter Relationship Specialty Start Date End Date Rahel Aiken MD [address] [place] [address] PCP - General 11/15/16
--- OUTSIDE RECORDS SUMMARY | 2024-08-10 20:23 | XMS_ITS | Continuity of Care Document ---
Author Organization [facility] Address [address] [place] [address] Phone Care Team Providers Care Dairy Processing Equipment Operator Name Role Phone Rubio PT,MPT,ATC, Ryan Unavailable Unavai lable Procedures Procedure Date PT Evaluation Low Complexity Neuromuscular Re-Ed Therapeutic Exercise Manual Therapy Advance Directives Directive Yes / No Effective Date File Name No Information Encounters Encounter Description Practice Location Reason(s) For Visit Diagnoses Date Provider Providers Copied on Encounter [facility], [address], [id number], tel:[phone] [place] No Information 4 Rubio Davis. , [place], [place]. [facility], [id number], tel:[phone] [place] No Information 4 Hope Ulrich. . Referring Provider: Luis Barrios , [facility], [place], [address]. tel:[phone] Family History Family Member Type Diagnosis Age At Onset No Information Payers Payer name Insurance type Covered green party ID Authoriza tijennifer(s) [employer] CI [id number] Social History Type Description Quantity Date Captured Comments Sex Male Smoking Status No Information Chief Complaint And Reason For Visit No Information Reason For Referral Reason For Referral No Information Plan Of Treatment Date Type Action Status Referral Ordered: Referrals: Specialist. Evaluate and Treat (related to Adjustment disorder with depressed mood) ordered Referral Ordered: Depression: Depression management program timeframe: 1 Day. (related to Depression) ordered Referral Ordered: Clinical Psychology (related to Depression) ordered History Of Present Illness Encounter Date Complaint History Of Prese nt Illness No Information Functional Status Date Functional Assessmen t No Information Instructions Date Instruction Additional Infor mation No Information Assessments Type Assessment Date No Information Patient Care Teams Name Effective Dates (start - stop) Status Members No Information
--- OUTSIDE RECORDS SUMMARY | 2024-08-10 20:23 | XMS_ITS ---
Author Organization [facility] Address [address] [place] [address] Care Team Providers Care Publicity Writer Name Role Phone AlonLeonardn Primary Care Provider Allergies No Known Allergies REASON FOR VISIT ESTABLISH CARE Medications Medication SIG (Take, Route, Fr equency, [...] Problem Status W/U Status Risk Notes Problem Obesity (728843552) Obesity, unspecified (E66.9) Active confirmed Problem Obstructive sleep apnea syndrome (disorder) (06843179) Obstructive sleep apnea (adult) (pediatric) (G47.33) Active confirmed Problem Psoriasis (3819253) Psoriasis, unspecified (L40.9) Active confirmed Problem Polyarthritis (826329429) Polyarthritis, unspecified (M13.0) Active confirmed Vital Signs Blood pressure systolic 130 mm Hg 04/22/19 25 Blood pressure diastolic 66 mm Hg 025 Heart Rate 93 /min 04/22/2024 Height 67 in 04/22/2024 Weight 339.4 lbs 04/22/2024 BMI 53.15 kg/m2 04/22/2024 SPO2: 94% Encounters Encounter Location Date Provider Diagnosis [facility] - Monica Chi [address] [place] [address] 04/22/2024 Monica Chi Obesity, unspecified E66.9 ; [...] sick contacts reported. Scheduled to see a senior hr business partner next month. Await gastroenterology consultation and clearance before initiating any weight loss medications Consider further diagnostic tests based on senior hr business partner's recommendations PsoriasisPatient has a known diagnosis of psoriasis and is currently being treated with Taltz (ixekizumab), likely at a dose of 40mg. Under the care of a motion picture camera operator for this condition. Continue current treatment with Taltz as prescribed Maintain follow-up with motion picture camera operator Cognitive SymptomsPatient reports difficulties with focus, memory, [...] procedures, referring and communicating with other health medical care evaluation specialist, documenting clinical information in the electronic or other health record, independently interpreting results and communicating results to the patient/family/caregi ralph and care coordinating patient plan. Patient alert and oriented x 4 and aware of discussion noted above and in agreeance to plan in management of obesity, abnormal weight gain, fatigue, MICHELET, hx of fatigue and arthritis. Plan Of Treatment Medication Medication Name Sig Start Date Stop Date Notes dexAMETHasone 1 MG 1 tablet Orally at 1 0 pm night before 8 am cortisol for 1 days 04/22/2024 Treatment Notes Assessment Notes Other Assessment and Plan: ObesityPatient presents with [...] sick contacts reported. Scheduled to see a senior hr business partner next month. Await gastroenterology consultation and clearance before initiating any weight loss medications Consider further diagnostic tests based on senior hr business partner's recommendations PsoriasisPatient has a known diagnosis of psoriasis and is currently being treated with Taltz (ixekizumab), likely at a dose of 40mg. Under the care of a motion picture camera operator for this condition. Continue current treatment with Taltz as prescribed Maintain follow-up with motion picture camera operator Cognitive SymptomsPatient reports difficulties with focus, memory, [...] examination and/or evaluation, counseling and educating the patient/family/caregiver, ordering medications, tests, or procedures, referring and communicating with other health medical care evaluation specialist, documenting clinical information in the electronic or other health record, independently interpreting results and communicating results to the patient/family/caregiver and care coordinating patient plan. Patient alert and oriented x 4 and aware of discussion noted above and in agreeance to plan in management of obesity, abnormal weight gain, fatigue, MICHELET, hx of fatigue and arthritis. Next Appt Details Follow Up: 4 Weeks, Reason: labwork Progress Notes * Huey COHENDOB: 5 (18 yo M)Acc No.[id number]:04/22/2024 Progress Notes Patient: Huey PECK Provider: Clover Chi MD :2005 A ge:18 Y S ex:Male Date:04/22/2024 Address:[address] [place], [place] [id number] Subjective: * Chief Complaints: * 1 . ESTABLISH CARE. * HPI: I nterval Hx: 18 yo male comes in to establish care in management of weight gain, obesity and concern for hormone imbalance / hypercortisolism. Huey, a patient with a history of sleep apnea, childhood asthma, psoriasis, and a concussion, presents with concerns about a 50-pound weight gain since age 14, fatigue, sleep disturbances, hair thinning, and cognitive issues. He also reports a history of gastrointestinal symptoms and occasional joint pain. Current medications include Taltz for psoriasis and CPAP for sleep apnea. Dr. Monica Chi plans comprehensive lab work to evaluate potential hormonal imbalances and insulin resistance, and will consider weight loss medication pending results. Huey is scheduled to see a senior hr business partner next month and may be referred for a neurological evaluation if cognitive symptoms persist. Huey presents with concerns about weight gain. He reports a 50-pound increase since age 14, currently weighing approximately 330 pounds. He denies any recent rapid onset of weight gain. The patient endorses fatigue and difficulty sleeping, with a history of sleep apnea for which he uses a CPAP nightly. He also reports some hair thinning and brain fog with memory issues, which have progressively worsened since a concussion 2-3 years ago. The patient has a history of gastrointestinal issues, including episodes of both constipation and diarrhea lasting for weeks at a time. These symptoms occurred for 2.5 to 3 months and have largely resolved. He denies nausea, vomiting, or recent travel. Huey also reports occasional joint pain, primarily in his back and hands, with a clicking sensation in his thumb. Huey has a history of childhood asthma and current psoriasis, for which he takes Taltz. He denies any history of diabetes, though there is a family history of diabetes in his father and grandfather. The patient also denies any thyroid- related symptoms such as neck swelling or difficulty swallowing. Medical History - Sleep apnea - Childhood asthma - Psoriasis - Concussion (2-3 years ago) Current and Past Medications and Supplements - Taltz 40mg (for psoriasis) - CPAP (for sleep apnea) Social History - Occupation: Works on trucks (implied from injury incident) - Physical activity: Reports being as active as he was at age 14 - Travel history: No recent travel reported Review of Systems - General: Fatigue - Sleep: Trouble sleeping - Skin: Hair thinning, psoriasis - Gastrointestinal: History of constipation, diarrhea (resolved) - Neurological: Brain fog, memory issues - Musculoskeletal: Back and hand pain, thumb clicking. * ROS: A LLERGY: no r unny nose. n o s cratchy throat. n o i tchy eyes. n o e ar fullness. n o s inus congestion. n o s tuffy nose. n o w atery eyes. n o s easonal allergies. n o h ay fever. n o a llergy.?no p olyps. n o s neezing. H EMATOLOGY/LYMPH: no s wollen glands. n o f atigue. n o l oss of appetite. n o e asy bruising. n o e asy bleeding. n o a nemia. ? U ROLOGY: no d ifficulty urinating. n o b lood in urine. n o u rinary urgency. n o f requent urination. n o u rinary incontinence. n o v oiding dysfunction. n o v ulvodynia. n o d ysparaunia. n o r ecurrent UTI. n o w eak flow. n o d ribbling after urination. n o f requent bladder infections. n o k idney stone. n o k idney disease. n o u rine hesitancy.?no p ainful urination. N UTRITION: greater than body requirmemts y es. L ess than body requirements y es. a ppropriate / adequate y es, y es. C ONSTITUTIONAL: no w eight gain. n o l oss of appetite. n o?fever. n o w eakness. n o w eight loss. n o n ight sweats. n o n ausea. n o v isual changes. n o c hange in sleep patterns. h +p reviewed y es, R OS form reviewed with patient see scan for detail. n o c hange in activity capacity.? D ERMATOLOGY: no r gordo. n o c hange in color of moles. n o?lumps. n o d ry or sensitive skin. n o h kimberly. n o o diana skin. n o?acne. n o m oles-irregular. n o m oles-change/new. n o b oils. n o dandruff. n o e xcessive body odor. n o p soriasis. n o f ungal infections. n o n ail problems. n o r edness/inflammation. n o a thlete's foot. n o s kin cancer. n o e czema. E NDOCRINOLOGY: no f atigue. n o e xcessive sweating. n o e xcessive thirst. n o e xcessive urination. n o w eight loss. n o s leep disturbance. n o c old intolerance. n o h eat intolerence. n o t hyroid disease. n o i ncreased loss of hair. n o h x of borderline diabetes. n o d iabetes. n o a bdormal body hair. n o r heumatism. n o c hanges in skin texture.? N EUROLOGY: no h eadache. n o t ingling numbness. n o s eizures. n o i nsomnia. n o m missy loss. n o d izziness. n o g ait abnormality. n o c hange in sensation anywhere on body. n o l ocalized weakness or numbness. n o b lackouts or near blackouts. n o m igraine. n o t remors.?no f ainting spells. n o h ead injury. n o s troke. O PTHALMOLOGY: no d iminished vision. n o e ye irritation. n o?drainage from eyes. n o b lurring of vision. n o s easonal eye sx. n o?dander related eye sx. n o l oss of vision. n o c ataracts. n o g lasses/contacts. n o g laucoma. n o d etached retina. n o m acular degeneration.?no e ye redness. R ESPIRATORY: no s hortness of breath. n o c hest pain. n o?wheezing. n o a sthma. n o b reathlessness when lying flat. n o p rolonged cough. n o f requent infections (bronchitis). n o e mphysema. n o c hest congestion. n o s leep apnea. E NT: no c old. n o c ough. n o c oughing blood.?no n ose bleed. n o h earing loss. n o c hange in voice. n o s ore throat. n o r inging in ears. n o s noring. n o e ar pain. n o r unny nose. n o w atery eyes. n o s inus infection. n o e ar infection. n o facial pain. n o h oarseness. n o g oiter. n o g um problems. n o?postnasal drip. n o f requent nosebleeds. C ARDIOLOGY: no c hest pain. n o p alpitations. n o l eg swelling. n o d izziness. n o s hortness of breath. n o v aricose veins.?no l eg cramps. n o c old hands or feet. n o h igh blood pressure. n o ankle swelling. n o c ardiac catheterization. n o h eart attacks. n o a ngina. n o m urmurs. n o l ow blood pressure. n o l eg pain that resolves w/rest. n o p urple fingers or lips. n o i rregular heart rate. n o c ongenital heart defects. n o d izziness when standing up quickly. n o a wakening at night short of breath. G ASTROENTEROLOGY: no n ausea. n o h eartburn. n o s tool incontinence. n o r eflux. n o a bdominal pain. n o i ndigestion. n o h emorrhoids. n o h iatal hernia. n o u lcers. n o a nal fissures. n o?hepatitis. n o g allstones. n o r ed blood after bowel movements. n o v omiting. n o b loating/belching. n o d ifficulty swallowing. n o d iarrhea.?no c onstipation. n o c hange in bowel habits. n o b lood in stool. ? M USCULOSKELETAL: no j oint swelling. n o j oint pain. n o l eg cramps. n o j oint stiffness. n o a rthritis. n o b ack pain. n o?muscle aches. n o m orning stiffness. n o t endinitis. n o n ramirez pain. no b ursitis. n o b one marrow biopsy. n o g out. a ctivity intolerance?weakness. n o f racture. P SYCHOLOGY: no h igh stress level. n o d epression. n o?sleep disturbances. n o r jere sx worse with stress. n o s uicidal ideation. n o e ating disorder. n o m ental or physical abuse. n o a nxiety. n o h eadaches. d isease state y es. M ALLYSON REPRODUCTIVE: no d ifficulty with erection. n o d ifficulty with ejeculation. n o d iminished sexual drive. n o i nabilty to complete intercourse.?no l ump on testicle. n o t esticular pain. n o l oss of sexual interest. no g roin itching. n o h ernia. n o p rostate disease. n o p remature ejaculation. n o p roblems maintaining or keeping an erection. n o s terility. n o s ores on penis or warts. * Medical History: N o Reported Medical History.Medical History Verified. * Surgical History: t onsillectomy- 2009 . * Hospitalization/Major Diagno stic Procedure: b roken leg and anoids-210 . * Family History: F ather: thyroid disease, diagnosed with Diabetes. M other: thyroid disease, asthma, COPD, Osteoarthritis, diagnosed with Hypertension. M aternal Grand Mother: osteoarthritis. M aternal Grand Father: osteoarthritis, diagnosed with Hypertension. P aternal Grand Father: diagnosed with Diabetes. Gerd/Acid Reflux- Paternal Grandmother. * Social History: S moking: yes P atient is a: Patient uses a vape. R ecreational drug use: no. Alcohol: no. * Medications: T aking Taltz(Ixekizumab) 80 MG/ML Solution Auto-injector as directed Subcutaneous * Allergies: N .K.D.A. Objective: * Vitals: H R: 93, BP: 130/66, Ht: 67, Wt: 339.4, BMI: 53.15. SPO2: 94%. * Examination: G eneral Examination: General n ormal, NAD, well nourished and hydrated, pleasant morbidly obese male. Neck, thyroid : s upple. Heart: B P wnl, RSR, no murmurs. Lungs: n ormal, respirations easy with conversation and ambulation. Abdomen: n ormal, round, non-distended. Neurologic exam: u nremarkable. Extremities: u nremarkable. Peripheral pulses: n ormal (2+) bilaterally . Psych: o rientation to person, place & situation, appropriate judgment noted. Assessment: * Assessment: 1. O besity, unspecified - E66.9 (Primary) 2 . A bnormal weight gain - R63.5 3 . O ther fatigue - R53.83 4 . O bstructive sleep apnea (adult) (pediatric) - G47.33 5 . P soriasis, unspecified - L40.9 6 . P olyarthritis, unspecified - M13.0 Plan: * Treatment: 2. O thers Notes: Assessment and Plan: ObesityPatient presents with significant [...] sick contacts reported. Scheduled to see a senior hr business partner next month. Await gastroenterology consultation and clearance before initiating any weight loss medications Consider further diagnostic tests based on senior hr business partner's recommendations PsoriasisPatient has a known diagnosis of psoriasis and is currently being treated with Taltz (ixekizumab), likely at a dose of 40mg. Under the care of a motion picture camera operator for this condition. Continue current treatment with Taltz as prescribed Maintain follow-up with motion picture camera operator Cognitive SymptomsPatient reports difficulties with focus, memory, [...] examination and/or evaluation, counseling and educating the patient/family/caregiver, ordering medications, tests, or procedures, referring and communicating with other health medical care evaluation specialist, documenting clinical information in the electronic or other health record, independently interpreting results and communicating results to the patient/family/caregiver and care coordinating patient plan. Patient alert and oriented x 4 and aware of discussion noted above and in agreeance to plan in management of obesity, abnormal weight gain, fatigue, MICHELET, hx of fatigue and arthritis. * Follow Up: 4 Weeks (Reason: labwork) * Billing Information: * Visit Code: [id number] Office Visit, New Pt., Level 4. * Procedure Codes: * M EXAMINER Sign off status: Completed true * Provider: Clover Chi MD Date: 0 04/22/2024 Generated for Emmie carlson/Neris/Gonzalezitting on: 0 08/10/2024 08:22 PM CDT History and Physical Notes * HPI (History of Present Illness) Category Sub-Category Detail Notes Category Not es Interval Hx 18 yo male comes in to establish care in management of weight gain, obesity and concern for hormone imbalance / hypercortisolism. Huey, a patient with a history of sleep apnea, childhood asthma, psoriasis, and a concussion, presents with concerns about a 50-pound weight gain since age 14, fatigue, sleep disturbances, hair thinning, and cognitive issues. He also reports a history of gastrointestinal symptoms and occasional joint pain. Current medications include Taltz for psoriasis and CPAP for sleep apnea. Dr. Monica Chi plans comprehensive lab work to evaluate potential hormonal imbalances and insulin resistance, and will consider weight loss medication pending results. Huey is scheduled to see a senior hr business partner next month and may be referred for a neurological evaluation if cognitive symptoms persist. Huey presents with concerns about weight gain. He reports a 50-pound increase since age 14, currently weighing approximately 330 pounds. He denies any recent rapid onset of weight gain. The patient endorses fatigue and difficulty sleeping, with a history of sleep apnea for which he uses a CPAP nightly. He also reports some hair thinning and brain fog with memory issues, which have progressively worsened since a concussion 2-3 years ago. The patient has a history of gastrointestinal issues, including episodes of both constipation and diarrhea lasting for weeks at a time. These symptoms occurred for 2.5 to 3 months and have largely resolved. He denies nausea, vomiting, or recent travel. Huey also reports occasional joint pain, primarily in his back and hands, with a clicking sensation in his thumb. Huey has a history of childhood asthma and current psoriasis, for which he takes Taltz. He denies any history of diabetes, though there is a family history of diabetes in his father and grandfather. The patient also denies any thyroid-related symptoms such as neck swelling or difficulty swallowing. Medical History - Sleep apnea - Childhood asthma - Psoriasis - Concussion (2-3 years ago) Current and Past Medications and Supplements - Taltz 40mg (for psoriasis) - CPAP (for sleep apnea) Social History - Occupation: Works on trucks (implied from injury incident) - Physical activity: Reports being as active as he was at age 14 - Travel history: No recent travel reported Review of Systems - General: Fatigue - Sleep: Trouble sleeping - Skin: Hair thinning, psoriasis - Gastrointestinal: History of constipation, diarrhea (resolved) - Neurological: Brain fog, memory issues - Musculoskeletal: Back and hand pain, thumb clicking Examination Category Sub-Category Detail Notes Category Not es General Examination Neck, thyroid : supple Heart: BP wnl, RSR, no murm urs Lungs: normal, respirations easy with conversation and ambulation Abdomen: normal, round, non-d istended Extremities: unremarkable General normal, NAD, well no urished and hydrated, pleasant morbidly obese male Neurologic exam: unremarkable Peripheral pulses: normal (2+) bilatera lly Psych: orientation to perso n, place & situation, appropriate judgment noted
--- OUTSIDE RECORDS SUMMARY | 2024-08-10 20:23 | XMS_ITS | Clinical Summary ---
Author Organization [facility] Address [address] [place] [address] Care Team Providers Care Scheduling Manager Name Role Phone Rahel Aiken MD Primary Care Provider [phone] Source Comments [facility],non-owned Affiliates and Associated Physician Practices is amultiple site organization consisting of ambulatory clinics and hospital sitesin [place], [place], [place] and [place]. This disclosure is being madepursuant to the Care Everywhere program and may not contain all information available regarding this patient. Last updated 17.[facility] Allergies No known active allergies Medications * Be aware that medications may not be up to date on this document. Alwaysverify current medications with the patient. ALBUTEROL IN Inhale 2 Packages by mouth 4 times daily as needed. Active ibuprofen (ADVIL; MOTRIN) 100 MG/5ML SUSP suspension Take 22 mL by mouth every 6 hours as needed for Pain or Fever. 240 mL 0 3 Active montelukast (SINGULAIR) 10 MG tablet Take 10 mg by mouth at bedtime Active calcipotriene- betamethasone dip (TACLONEX) 0.005-0.064 % ointmentIndica tions:Psoriasi s Apply to affected areas on trunk and extremities twice a day for 2 weeks, then daily until improved, then every other day 100 g 8 Active ustekinumab (STELARA) 45 MG/0.5ML prefilled syringeIndicat ions:Psoriasis Inject 0.5 ml subcutaneously on day 0 and day 28 (starter doses), then every 12 weeks. Starter doses to be administered in clinic 2 syringe 8 Active apremilast (OTEZLA) 10 & 20 & 30 MG tablet Take by mouth as directed d1: 10 mg QAM; d2:10 mg BID; d3:10/20; d4:20 mg BID; d5: 20/30, then 30 mg BID 1 Each 8 Active albuterol HFA (PROVENTIL;RAUL TOLIN;PROAIR) 108 (90 Base) MCG/ACT inhaler Active buPROPion XL 24hr (Wellbutrin-XL ) 300 MG tablet Take 1 (one) tablet by mouth once daily 1 Active buPROPion XL 24hr (Wellbutrin-XL ) 150 MG tablet Take 1 (one) tablet by mouth once daily 1 Active ondansetron, disintegrating , (Zofran ODT) 4 MG tablet TAKE 1 TABLET BY MOUTH EVERY 8 HOURS NEEDED FOR NAUSEA/VOMITING 2 Active fluticasone-vi lanterol (Breo Ellipta) 100-25 MCG/ACT inhaler TAKE 1 PUFF BY MOUTH EVERY DAY 2 Active ARIPiprazole (Abilify) 2 MG tablet Take 1 (one) tablet by mouth once daily 2 Active Active Problems Patient Care Coordination No te Formatting of this note migh t be different from the original. Do you have any cultural preferences or concerns? No 02/02/22 Problem Noted Date Diagnosed Date Lactose intolerance 05/22/2019 Medication management 07/25/2017 Overview (08/01/2017): 07/05/2017: PA for Stelara denied by [facility]. 07/25/2017: Verbal PA for Otezla submitted to [facility]. 07/28/2017: Otezla denied d/t pt age. Obesity 12/01/2016 S/P tonsillectomy 08/14/2016 Overview (08/14/2016): 09/28/2009 for hypertrophy and sleep disordered breathing Fracture 08/14/2016 Overview (08/14/2016): 07/05/09 proximal tibia fracture Psoriasis 08/14/2016 Overview (07/09/2017): Onset 2016 following illness (viral vs Strep); [...] testing step edit requirements; Rx Otezla Asthma 08/17/2012 Seasonal allergies 08/17/2012 Social History Tobacco Use Types Packs/Day Years Used Date Smoking Tobacco: Never Smokeless Tobacco: Never Tobacco Cessation:Counseling Given: Not Answered Sex and Gender Information Value Date Recorded Sex Assigned at Not on file Legal Sex Male 5:45 AM JET MAN Gender Identity Not on file Sexual Orientation Not on file Last Filed Vital Signs Vital Sign Reading Time Taken Comments Blood Pressure 128/70 02/02/2022 1:12 PM CDT Pulse 106 01/25/2021 3:41 PM CDT Temperature 37.1 C (98.8 F) 01/25/2021 3:41 PM CDT Respiratory Rate 17 01/25/2021 3:41 PM CDT Oxygen Saturation 97% 01/25/2021 3:41 PM CDT Inhaled Oxygen Concentration - - Weight 135 kg (297 lb 9.9 oz) 02/02/2022 1:12 PM CDT Height 167.9 cm (5' 6.1 ) 02/02/2022 1:12 PM CDT Body Mass Index 47.89 02/02/2022 1:12 PM CDT Body Mass Index Percentile 99.98% 02/02/2022 1:1 2 PM CDT Growth Chart: CDC (Boys, 2-2 0 Years) Plan of Treatment Health Maintenance Due Date Last Done Comments HIV SCREENING 09/17/2019 HPV VACCINE (1 - Male 3-dose series) 09/17/2019 MENINGOCOCCAL (Group B) VACCINE SHARED DECISION-MAKING (1 of 2 - Standard) 2020 HEPATITIS C SCREENING 09/12/2022 DTAP/TDAP/TD VACCINES (1 - Tdap) 09/17/2023 HEPATITIS B VACCINE (1 of 3 - 19+ 3-dose series) 09/17/2023 PNEUMOCOCCAL VACCINE (1 of 2 - PCV) 09/17/2023 COVID-19 VACCINE (1 - season) 2023 DEPRESSION SCREENING 04/02/2024 INFLUENZA VACCINE (Season Ended) 2024 03/15/2021, 01/12/2020, 04/03/2017, Additional history exists ZOSTER VACCINE (1 of 2) 2054 HIB VACCINE Aged Out No longer eligi ble based on patient's age to complete this topic MENINGOCOCCAL GROUPS A/C/Y/W VACCINE Aged Out No longer eligible based on patient's age to complete this topic Insurance [employer] Care Teams Scheduling Manager Relationship Specialty Start Date End Date Rahel Aiken MD [address] [facility] [address] [place] [address] PCP - General Pediatrics 07/05/16
--- OUTSIDE RECORDS SUMMARY | 2024-08-10 20:23 | XMS_ITS | Clinical Summary ---
Author Organization [facility] ospital Address [address] [place] [address] Care Team Providers Care Kitchen Aide Name Role Phone Rahel Aiken MD Primary Care Provider [phone] Allergies No known active allergies Medications albuterol [...] Psoriasis 05/22/2019 Lactose intolerance 05/22/2019 Obesity 12/01/2016 Surgical History Surgery Date Site/Laterality Comments TONSILECTOMY, ADENOIDECTOMY, BILATERAL MYRINGOTOMY AND TUBES ADENOIDECTOMY W/ MYRINGOTOMY AND TUBES Medical History Medical History Date Comments Asthma Psoriasis Anxiety Depression Family History Medical History Relation Name Comments Anxiety disorder Father Depression Father Diabetes Father Anemia Mother Anesthesia problems Mother Family h istory of complications due to general anesthesia - (Added by Conv) Anxiety disorder Mother Asthma Mother Cholelithiasis Mother Depression Mother Hypertension Mother Family history of hypertension - (Added by Conv) Irritable bowel syndrome Mother Nephrolithiasis Mother Family histo ry of kidney stones - (Added by Conv) Urinary tract infection Other 1 Fami ly history of urinary tract infection - Relation: Grandparent (Added by Conv) Diabetes Other 2 Family history of diabetes mellitus - Relation: Grandparent (Added by Conv) Relation Name Status Comments Father Alive Mother Alive Other 1 Other 2 Sister Alive Social History Tobacco Use Types Packs/Day Years [...] on file 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 Gender Identity Not on file Sexual Orientation Not on file Obstetrics History Growth Chart Information Age Height Weight Agummy-yat-fjxc th Percentile BMI Percentile Head Circum Head Circum Percentile Date 18 years 149 kg (328 lb 7.8 oz) 2023 18 years 170.2 cm (5' 7 ) 149.7 kg (330 lb) 99.99%* 2023 15 years 134.2 kg (295 lb 13.7 oz) 2020 14 years 110 kg (242 lb 8.1 oz) 2019 13 years 164.3 cm (5' 4.69 ) 110 kg (242 lb 6.4 oz) 99.90%* 2019 11 years 156 cm (5' 1.42 ) 86 kg (189 lb 9.5 oz) 99.79%* 2016 10 years 153.7 cm (5' 0.5 ) 75 kg (165 lb 6.6 oz) 99.47%* 2015 7 years 137 cm (4' 5.94 ) 49.7 kg (109 lb 9.1 oz) 99.15%* 2013 * [facility] (Boys, 2-20 Years) Last Filed Vital Signs Vital Sign Reading [...] 01/14/2024 11:02 PM CDT Plan of Treatment Health Maintenance Due Date Last Done Comments Depression Screening 2004 Hepatitis C Screening 2004 Meningococcal B Vaccine (1 o f 2 - Standard) 2020 Regular Well Visit/Exam 18-64 2022 Influenza Vaccine (#1) 2023 3, 03/15/2021, 01/12/2020, Additional history exists DTaP/Tdap/Td Vaccine (7 - Td or Tdap) 03/15/2031 03/15/2021, 11/25/2009, 01/02/2006, Additional history exists Hepatitis B Screening Completed 03/23/2005 , 01/17/2005, 2004, Additional history exists Pneumococcal vaccine <65 Completed 006, 03/23/2005, 01/17/2005, Additional history exists Varicella Vaccines Completed 11/05/2008, 09/21/2005 HPV Vaccines Completed 11/21/2018, 09/10/2017 Meningococcal Vaccine Completed 03/15/2021 Insurance [employer] COVENTRY HMO/POS A[employer] COVENTRY HMO/POS CHOICE PLUS [employer] HEALTHCARE PPO Care Teams Kitchen Aide Relationship Specialty Start Date End Date Rahel Aiken MD [address] [place] [address] PCP - General 11/15/16
--- OUTSIDE RECORDS SUMMARY | 2024-08-10 20:23 | XMS_ITS ---
Author Organization [facility] Address [address] [place] [address] Care Team Providers Care Receipt And Report Clerk Name Role Phone Monica Chi Primary Care Provider REASON FOR VISIT est. care karen Encounters Encounter Location Date Provider Diagnosis [facility] - Monica Chi [address] [place] [address] 04/15/2024 Monica Chi Plan Of Treatment No Information Progress Notes * Huey COHENDOB: 5 (18 yo M)Acc No.[id number]:04/15/2024 Progress Notes Patient: Huey PECK Provider: Clover Chi MD :2005 A ge:18 Y S ex:Male Date:04/15/2024 Address:[facility] Subjective: * Chief Complaints: * 1 . Est. care karen. * HPI: I nterval Hx: 18 yo male comes in to establish care in management of. * Medical History: Objective: * Vitals: Assessment: Plan: * Treatment: * Billing Information: * Visit Code: * Procedure Codes: * Electronic signature of Leonard Chi MD on 08/10/2024 at 08:22 PM CDT Sign off status: Pending * Provider: Clover Chi MD Date: 0 04/15/2024 Generated for Emmie carlson/Neris/eTransmitting on: 0 08/10/2024 08:22 PM CDT History and Physical Notes * HPI (History of Present Illness) Category Sub-Category Detail Notes Category Not es Interval Hx 18 yo male come s in to establish care in management of
--- OUTSIDE RECORDS SUMMARY | 2024-08-10 20:23 | XMS_ITS ---
Author Organization [facility] Address [address] [place] [address] Care Team Providers Care Oracle Adf Developer Name Role Phone Monica Chi Primary Care Provider REASON FOR VISIT Lab FU Encounters Encounter Location Date Provider Diagnosis [facility] - Monica Chi [address] [place] [address] 05/12/2024 Monica Chi Plan Of Treatment No Information Progress Notes * NOELHuey EDDYDOB: 5 (18 yo M)Acc No.[id number]:05/12/2024 Progress Notes Patient: Huey PECK Provider: Clover Chi MD :2005 A ge:18 Y S ex:Male Date:05/12/2024 Address:[facility] [facility] Subjective: * Chief Complaints: * 1 . Lab FU. * Medical History: Objective: * Vitals: Assessment: Plan: * Treatment: * Billing Information: * Visit Code: * Procedure Codes: * Electronic signature of Leonard Chi MD on 08/10/2024 at 08:22 PM CDT Sign off status: Pending * Provider: Clover Chi MD Date: 0 05/12/2024 Generated for Emmie carlson/Neris/eTgersmitting on: 0 08/10/2024 08:22 PM CDT
[2024-08-10 20:26] VITALS: BP 157/82; PULSE 82; RESP 20; TEMP 37.1; O2SAT 99
--- OUTSIDE RECORDS SUMMARY | 2024-08-10 21:13 | XMS_ITS | Continuity of Care Document ---
Author Organization [facility] Address [address] [place] [address] Phone Care Team Providers Care Railroad Dining Car Steward/Stewardess Name Role Phone Rubio PT,MPT,ATC, Ryan Unavailable Unavai lable Procedures Procedure Date PT Evaluation Low Complexity Neuromuscular Re-Ed Therapeutic Exercise Manual Therapy Advance Directives Directive Yes / No Effective Date File Name No Information Encounters Encounter Description Practice Location Reason(s) For Visit Diagnoses Date Provider Providers Copied on Encounter [facility], [address], [id number], tel:[phone] [place] No Information 4 Rubio Davis. , [place], [place]. [facility], [id number], tel:[phone] [place] No Information 4 Hope Ulrich. . Referring Provider: Luis Barrios , [facility], [place], [address]. tel:[phone] Family History Family Member Type Diagnosis Age At Onset No Information Payers Payer name Insurance type Covered constitution party ID Authoriza tijennifer(s) Aetna CI [id number] Social History Type Description Quantity Date Captured [...]
--- OUTSIDE RECORDS SUMMARY | 2024-08-10 21:13 | XMS_ITS | Encounter Summary ---
Author Organization [facility] Address [address] [place] [address] Care Team Providers Care Steel Roller Name Role Phone Luis Barrios DO Primary Care Provider + Encounter Details Date Type Department Care Team (Late st Contact Info) Description 06/22/2021 MyChart Message Enc [facility] Family & Internal Medicine [facility] [address] [place] [address] Luis Barrios DO [address] [place], [place] [id number] Anxiety/ Depression Social History Tobacco Use Types [...] Sex Assigned at Male 03/24/2024 7:29 AM BUSHLER Legal Sex Male 6:21 PM CDT Gender Identity Male 03/24/2024 7:29 AM BUSHLER Sexual Orientation Straight 03/15/2021 9: 04 AM BUSHLER COVID-19 Exposure Response Date Recorded In the last 10 days, have yo u been in contact with someone who was confirmed or suspected to have Coronavirus/COVID-19? No / Unsure 06/08/2021 9:02 AM BUSHLER documented as of this encounter Progress Notes * Luis Barrios DO - 06/22/2021 11:08 AM CDT Can do A New Perspective in [place]. [place] to send list of resources handout as well. documented in this encounter Plan of Treatment Not on file documented as of this encounter Visit Diagnoses Not on filedocumented in this encounter Additional Health Concerns Infection Onset Date Last Indicated Resolved Time COVID-19 Rule Out 04/27/2022 04/27/2022 04/27/2022 10:28 AM BUSHLER COVID-19 Rule Out 03/06/2023 03/06/2023 03/06/2023 11:22 AM BUSHLER COVID-19 Rule Out 03/06/2023 03/06/2023 03/07/2023 6:23 PM BUSHLER COVID-19 Rule Out 07/04/2023 07/04/2023 07/04/2023 3:00 PM CDT Assessment Noted Time PHQ-9 Depression Total Score: 15 021 8:42 AM BUSHLER documented as of this encounter Care Teams Steel Roller Relationship Specialty Start Date End Date Luis Barrios DO [address] [place] [address] PCP - General FAMILY PRACTICE 03/15/21 documented as of this encounter
--- OUTSIDE RECORDS SUMMARY | 2024-08-10 21:13 | XMS_ITS | Referral Summary ---
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
--- OUTSIDE RECORDS SUMMARY | 2024-08-10 21:13 | XMS_ITS | Clinical Summary ---
Author Organization [facility] Address [facility] [place] [address] Care Team Providers Care Car Rental Deliverer Name Role Phone TiburcioodilonjeysonmichaelLuis Ирина SANCHEZ Primary [...] testing step edit requirements; Rx Otezla Asthma ([facility]) 08/17/2012 Resolved Problems Problem Noted Date Diagnosed Date Resolved Date Bronchitis 06/08/2021 11/02/2021 Encounters Date Type Department Care Team Description 07/16/2024 Scan [facility] Scanned, Doc [facility] 07/06/2024 Scan [facility] Scanned, Doc [facility] Lab (SCAN) 07/06/2024 Scan [facility] Scanned, Doc [facility] Lab (SCAN) 05/29/2024 3:00 PM WARP TYING MACHINE TENDER Anesthesia Event [facility] [address] Los Ojeda MD 05/29/2024 2:00 PM WARP TYING MACHINE TENDER - 05/29/2024 2:30 PM WARP TYING MACHINE TENDER Surgery [facility] [address] Igor Lara MD COLONOSCOPY 05/29/2024 1:02 PM WARP TYING MACHINE TENDER - 05/29/2024 4:18 PM WARP TYING MACHINE TENDER Hospital Encounter [facility] [place] [address] Igor Lara MD Discharge Disposition: Home or Self Care (Routine Discharge) 05/29/2024 Travel 05/19/2024 11:59 PM WARP TYING MACHINE TENDER Anesthesia Event [facility] [address] [place] [address] Nanda Moseley CRNA 05/19/2024 Telephone [facility] [address] [facility], [address] [place] [address] Igor Lara MD Prior Authorization (Colonoscopy-[id number]) 05/19/2024 Telephone [facility] [address] [facility] [place] [address] Igor Lara MD Schedule Procedure 05/19/2024 Telephone [facility] [address] [place] [address] Dinah Kincaid RN Cancel Procedure [...] Sex Assigned at Male 03/24/2024 7:29 AM WARP TYING MACHINE TENDER Legal Sex Male 6:21 PM CDT Gender Identity Male 03/24/2024 7:29 AM WARP TYING MACHINE TENDER Sexual Orientation Straight 03/15/2021 9: 04 AM WARP TYING MACHINE TENDER Last Filed Vital Signs Vital Sign Reading Time Taken Comments Blood Pressure 115/65 05/29/2024 3:55 PM WARP TYING MACHINE TENDER Pulse 77 05/29/2024 3:55 PM WARP TYING MACHINE TENDER Temperature 36.7 C (98.1 F) 05/29/2024 3:23 PM WARP TYING MACHINE TENDER Respiratory Rate 22 05/29/2024 3:55 PM WARP TYING MACHINE TENDER Oxygen Saturation 97% 05/29/2024 3:55 PM WARP TYING MACHINE TENDER Inhaled Oxygen Concentration - - Weight 155.6 kg (343 lb) 05/26/2024 10:59 AM WARP TYING MACHINE TENDER Height 170.2 cm (5' 7 ) 05/26/2024 10:59 AM WARP TYING MACHINE TENDER Body Mass Index 53.72 05/26/2024 10:59 AM WARP TYING MACHINE TENDER Plan of Treatment Health Maintenance Due Date Last Done Comments Meningococcal B Vaccine (1 of 2 - Standard) 2020 Annual Physical 11/02/2022 11/02/2021, 03/15/2021 PHQ-2 (Physician Reader) 04/02/2024 02/05/2024 COVID-19 Vaccine (1 - season) [...] 07/06/2024 UPPER GI ENDOSCOPY,DIAGNOSIS 05/29/2024 3:00 PM WARP TYING MACHINE TENDER Left-sided abdominal pain of unknown etiology Nausea and vomiting, unspecified vomiting type Diarrhea, unspecified type COLONOSCOPY 05/29/2024 3:00 PM WARP TYING MACHINE TENDER Left-sided abdominal pain of unknown etiology Nausea and vomiting, unspecified vomiting type Diarrhea, unspecified type EGD Routine 05/29/2024 1:22 PM WARP TYING MACHINE TENDER COLONOSCOPY Routine 05/29/2024 1:22 PM WARP TYING MACHINE TENDER HEP C SCANNED ORDERS Routine 05/31/2022 from [...] Most Recently Relevant to Health Maintenance Insurance [address] [place] [id number] Care Teams Car Rental Deliverer Relationship Specialty Start Date End Date Luis Barrios DO [address] [place] [address] PCP - General FAMILY PRACTICE 03/15/21
--- OUTSIDE RECORDS SUMMARY | 2024-08-10 21:13 | XMS_ITS | Clinical Summary ---
Author Organization [facility] Address [address] [place] [address] Care Team Providers Care Principal Consultant Name Role Phone Rahel Aiken MD Primary Care Provider [phone] Source Comments [facility],non-owned Affiliates and Associated Physician Practices is amultiple site organization consisting of ambulatory clinics and hospital sitesin [place], [place], [place] and [place]. This disclosure is being madepursuant to the Care Everywhere program and may not contain all information available regarding this patient. Last updated 17.[facility] Allergies No known active allergies Medications * [...] (08/01/2017): 07/05/2017: PA for Stelara denied by [facility]. 07/25/2017: Verbal PA for Otezla submitted to [facility]. 07/28/2017: Otezla denied d/t pt age. Obesity [...] on file Legal Sex Male 5:[address] Gender Identity Not on file Sexual [...] complete this topic Insurance [employer] Care Teams Principal Consultant Relationship Specialty Start Date End Date Rahel Aiken MD [address] [facility] [address] [place] [address] PCP - General Pediatrics 07/05/16
--- OUTSIDE RECORDS SUMMARY | 2024-08-10 21:13 | XMS_ITS | Clinical Summary ---
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
[2024-08-10 21:24] LABS: Basophils Percent Auto 0.3 % (0.2-1.2); Eosinophils Absolute Auto 0.1 K/mm3 (0-0.3); Eosinophils Percent Auto 0.5 % (0-4.4); Hematocrit 46.2 % (42.0-52.0); Hemoglobin 15.3 g/dL (14.0-18.0); Immature Granulocyte Absolute 0.04 K/mm3 (0.00-0.031); Immature Granulocyte Percent A 0.4 % (0-0.5); Lymphocytes Absolute Auto 3.09 K/mm3 (0.9-3.2); Lymphocytes Percent Auto 29.8 % (18.3-44.2); Mean Corpuscular HGB Conc 33.1 g/dl (32-36); Mean Corpuscular Hemoglobin 29.2 pg (26-34); Mean Corpuscular Volume 88.2 fl (80-100); Mean Platelet Volume 10.5 fl (7.4-10.4); Neutrophils Absolute Auto 6.1 K/mm3 (1.3-6.7); Platelet Count Result 260 k/mm3 (150-375); Red Blood Count 5.24 M/mm3 (4.6-6.20); Red Cell Distribution Width 14.8 % (11.5-14.5); White Blood Count 10.4 K/mm3 (4.5-10.0)
[2024-08-10 21:33] LABS: Add Urine Microscopic? NO; Appearance Urine Clear (Clear); Bilirubin Urine Negative (Negative); Blood Urine Negative (Negative); Color Urine Yellow (Yellow); Glucose Urine UA Negative (Negative); Ketones Urine Trace mg/dL (Negative); Leukocyte Esterase Ur Negative LEU/UL (Negative); Nitrate Urine Negative (Negative); Protein Urine Negative (Negative); Specific Grav Ur 1.023 (1.001-1.035); Urobilinogen Urine 0.2 mg/dL (<2.0)
[2024-08-10 21:34] LABS: Alanine Aminotransferase 42 U/L (6-50); Albumin Level 4.4 g/dL (3.7-5.6); Alkaline Phosphatase 87 U/L (58-237); Anion Gap 10 mmol/L (4-12); Aspartate Amino Transferase 34 U/L (17-59); Bilirubin,Total 0.4 mg/dL (0.2-1.3); Blood Urea Nitrogen 12 mg/dL (8-21); Calcium 9.3 mg/dL (8.9-10.7); Carbon Dioxide 25 mmol/L (22-30); Chloride 104 mmol/L (98-107); Estimated CRCL calculation 180 ml/min; Estimated Glomerular Filt Rate > 60; Glucose 99 mg/dL (65-110); Lipase 42 U/L (23-300); Potassium 4.1 mmol/L (3.4-5.0); Sodium 139 mmol/L (134-143)
--- NOTE | 2024-08-10 21:55 | ED.ABDPAIN ---
HPI - Abdominal Pain General Chief Complaint: Abdominal Pain Stated Complaint: Abd pain x 2 days, +N/V Time Seen by Provider: 08/10/24 21:04 Source: patient Mode of arrival: ambulatory Limitations: no limitations History of Present Illness HPI narrative: This is a 18 year old male that presents to the ER for abdominal pain, nausea, vomiting. Ongoing over the last couple of days. Reports mid to right lower abdominal pain. Denies fevers, dysuria, hematuria. Related Data Home Medications ?Medication ?Instructions ?Recorded ?Confirmed ?Last Taken ?Type citalopram 40 mg tablet 40 mg PO DAILY 03/01/21 03/28/24 03/01/21 History ixekizumab 80 mg/mL subcutaneous 80 mg subcut MONTHLY 12/14/22 03/28/24 Unknown History auto-injector (Taltz Autoinjector) aripiprazole 10 mg tablet mg 07/16/24 Unknown History bupropion HCl 300 mg 24 hr tablet, mg PO 07/16/24 Unknown History extended release ergocalciferol (vitamin D2) 1,250 07/16/24 Unknown History mcg (50,000 unit) capsule pantoprazole 40 mg tablet,delayed mg PO 07/16/24 Unknown History release Allergies Allergy/AdvReac Type Severity Reaction Status Date / Time No Known Allergies Allergy Verified 08/10/24 21:13 Review of Systems Review of Systems: CONSTITUTIONAL: Denies fever GASTROINTESTINAL: Reports abdominal pain, nausea, vomiting GENITOURINARY: Denies dysuria or hematuria. All systems reviewed & are unremarkable except as noted in HPI and below PMFSH Past Medical History Medical History Psoriasis Asthma Surgical History Surgical History Hx of tonsillectomy Family History Family History Mother Asthma Sibling Asthma Social History Social History Second hand tobacco smoke exposure: No Exam Narrative: GENERAL: Well-appearing, well-nourished, and in no acute distress. HEAD: Normocephalic, atraumatic. EYES: EOMI. CHEST: Clear to auscultation. No respiratory distress. No wheezes rales or rhonchi HEART: Regular rate and rhythm. No murmur heard. Normal peripheral pulses. ABDOMEN: Soft, nondistended, normal active bowel sounds. Tender to palpation in the right lower quadrant, without guarding EXTREMITIES: Normal range of motion. No edema. SKIN: Warm, dry, no rash. NEURO: No focal deficits. Alert and oriented x3. PSYCH: Normal mood and affect Course Course Emergency Course: patient updated on his workup and agrees with plan of care Vital Signs Vital signs: Vital Signs Temperature 98.8 F 08/10/24 20: Pulse Rate 82 08/10/24 20: Respiratory Rate 20 08/10/24 20: Blood Pressure 157/82 H 08/10/24 20: Pulse Oximetry 99 08/10/24 20:26 Oxygen Delivery Room Air 08/10/24 20:26 Temperature 98.8 F 08/10/24 20:26 Pulse Rate 87 08/11/24 00:46 Respiratory Rate 20 08/11/24 00:46 Blood Pressure 117/54 L 08/11/24 00:46 Pulse Oximetry 97 08/11/24 00:46 Oxygen Delivery Room Air 08/10/24 20:26 MDM - Abdominal Pain MDM Narrative Medical decision making narrative: Patient presents to the emergency department for right-sided lower abdominal pain. He is afebrile and nontoxic appearing. His vitals are stable. CBC with mild leukocytosis to 10.4. Metabolic panel and lipase without concerning findings. Urine without evidence of infection. CT abdomen pelvis without acute findings. Patient updated on his workup and agrees with care. He is to follow up with primary provider. He was given warnings to return the ER Differential Diagnosis Differential diagnosis: Likely acute appendicitis, calculus of kidney and diverticulitis Lab Data Attestation: I reviewed the patient's lab results. 08/10/24 21:18 08/10/24 21:18 Labs: Lab Results 08/10/24 08/10/24 Range/Units 21:18 21:25 WBC 10.4 H (4.5-10.0) K/mm3 RBC 5.24 (4.6-6.20) M/mm3 Hgb 15.3 (14.0-18.0) g/dL Hct 46.2 (42.0-52.0) % MCV 88.2 (80-100) fl MCH 29.2 (26-34) pg MCHC 33.1 (32-36) g/dl RDW 14.8 H (11.5-14.5) % Plt Count 260 (150-375) k/mm3 MPV 10.5 H (7.4-10.4) fl Immature Gran % (Auto) 0.4 (0-0.5) % Neut % (Auto) 59.0 (45.5-73.1) % Lymph % (Auto) 29.8 (18.3-44.2) % [place] % (Auto) 10.0 H (2.6-8.5) % Eos % (Auto) 0.5 (0-4.4) % Baso % (Auto) 0.3 (0.2-1.2) % Lymph # (Auto) 3.09 (0.9-3.2) K/mm3 [place] # (Auto) 1.0 H (0.1-0.6) K/mm3 Eos # (Auto) 0.1 (0-0.3) K/mm3 Baso # (Auto) 0.0 (0.0-0.1) K/mm3 Abs Immat Gran (auto) 0.04 H (0.00-0.031) K/mm3 Absolute Neuts (auto) 6.1 (1.3-6.7) K/mm3 Absolute Nucleated RBC 0.000 (0.0-0.012) K/mm3 Nucleated RBC % 0.0 (0.0-0.2) % Sodium 139 (134-143) mmol/L Potassium 4.1 (3.4-5.0) mmol/L Chloride 104 (98-107) mmol/L Carbon Dioxide 25 (22-30) mmol/L Anion Gap 10 (4-12) mmol/L BUN 12 (8-21) mg/dL Creatinine 0.79 (0.7-1.3) mg/dL Estim Creat Clear Calc 180 ml/min Estimated GFR > 60 (59 - ) Glucose 99 (65-110) mg/dL Calcium 9.3 (8.9-10.7) mg/dL Total Bilirubin 0.4 (0.2-1.3) mg/dL AST 34 (17-59) U/L ALT 42 (6-50) U/L Alkaline Phosphatase 87 (58-237) U/L Total Protein 8.0 (6.3-8.6) g/dL Albumin 4.4 (3.7-5.6) g/dL Lipase 42 (23-300) U/L Urine Color Yellow (Yellow) Urine Appearance Clear (Clear) Urine pH 6.0 (5.0-9.0) Ur Specific Commercial Point 1.023 (1.001-1.035) Urine Protein Negative (Negative) mg/dL Urine Glucose (UA) Negative (Negative) mg/dL Urine Ketones Trace H (Negative) mg/dL Ur Blood (Man) Negative (Negative) Urine Nitrate Negative (Negative) Urine Bilirubin Negative (Negative) Urine Urobilinogen 0.2 (<2.0) mg/dL Leukocyte Esterase Rfl Negative (Negative) AYANNA/UL Imaging Data Radiologist's impression: CT abdomen and pelvis: No acute findings Critical Care Time Critical Care Time Critical Care Time: No Discharge Plan Discharge Clinical Impression: Abdominal pain Qualifiers: Abdominal location: right lower quadrant Qualified Code(s): R10.31 - Right lower quadrant pain Patient Disposition: Home Condition: Stable Instructions: Abdominal Pain (ED) Additional Instructions: Return to the ER if you experience fever, abdominal pain with nausea and vomiting, you are unable to keep down liquids or solids, blood in the stool, pain or burning with urination, blood in the urine or any other symptoms that are concerning to you Follow up with your primary care doctor Patient Language: Palestinian Prescriptions: No Action Taltz Autoinjector 80 mg/mL auto-injector 80 mg SUBCUT MONTHLY citalopram 40 mg tablet 40 mg PO DAILY pantoprazole 40 mg tablet,delayed release (DR/EC) PO ergocalciferol (vitamin D2) 1,250 mcg (50,000 unit) capsule aripiprazole 10 mg tablet bupropion HCl 300 mg tablet extended release 24 hr PO Follow-up/Referrals: Denis,DO Luis [Primary Care Provider] - Stand Alone Forms: Work/School Release IP
[2024-08-10] MEDS: ONDANSETRON INJ 4 MG/2 ML VIAL IV PUSH (22:36)
[2024-08-10] MEDS: KETOROLAC 15 MG/ML VIAL (*BKC) IV PUSH (22:36)
[2024-08-10 23:02] VITALS: PULSE 80; RESP 17; O2SAT 96
[2024-08-11 00:46] VITALS: BP 117/54; PULSE 87; RESP 20; O2SAT 97
[2024-08-11 01:28] VITALS: BP 124/50; PULSE 88; RESP 16; O2SAT 98
== END 2024-08-11 01:35 | disposition home or self-care (01) ==
PROVIDERS: Emergency Medicine; Emergency Provider Physician Assistant; PCP Student in an Organized Health Care Education/Training Program
DX: R10.31 Right lower quadrant pain (principal); J45.909 Unspecified asthma, uncomplicated; L40.9 Psoriasis, unspecified; Z79.620 Long term (current) use of immunosuppressive biologic; Z79.899 Other long term (current) drug therapy
CPT/HCPCS: 36415; 74177; 80053; 81003; 83690; 85025; 96374; 96375; 99284; J1885; J2405; Q9967

== ENCOUNTER 2024-09-16 10:00 | Outpatient (CLI) | payer OTHER, SELFPAY ==
--- NOTE | ~2024-09-16 | CT_ITS ---
Non-contrast CT scan of the Abdomen Clinical indication: Disorder of adrenal gland Technique: 2.5 mm axial scans were obtained through the abdomen without intravenous or oral contrast . Dose reduction technique was used on this scan by utilizing automated exposure control and iterativ e reconstruction technique. The dose-length product (DLP) was 1066.79 mGy-cm. COMPARISON: 08/10/2024 Findings: Images through the lung bases reveal no abnormalities. There is no evidence of renal or ureteral calculi. The kidneys and the ureters are nondilated. The liver, spleen, pancreas, gallbladder, and adrenals appear normal. There is no aortic aneurysm. Visualized bowel loops are unremarkable. No ascites. Impression: Unremarkable exam. No adrenal abnormality seen. Reviewed, dictated and finalized at location . Impression: Unremarkable exam. No adrenal abnormality seen.
--- OUTSIDE RECORDS SUMMARY | 2024-09-16 11:07 | XMS_ITS | Patient Health Record ---
Author Organization [facility] Address [address] [place] [id number] Care Team Providers Care Field Enumerator Name Role Phone Monica Chi Primary Care Provider Allergies No Known Allergies Results Component Value Reference Range Flag Notes HEMOGLOBIN A1c Reviewed date:05/08/2024 07:55:55 PM Interpretation: Performing Lab:[facility], [address] [place], [address] Ronnie Maldonado Notes/Report: FASTING:YES FASTING: YES INSULIN Reviewed date:05/08/2024 07:55:55 PM Interpretation: Performing Lab:SHANNA [facility], [address] [place], [address] Ronnie Maldonado MD Notes/Report: FASTING:YES FASTING: YES MAGNESIUM Reviewed date:05/08/2024 07:55:55 PM Interpretation: Performing Lab:[facility]IANO [facility], [address] [place], [address] Ronnie Maldonado Notes/Report: FASTING:YES FASTING: YES CBC (INCLUDES DIFF/PLT) Reviewed date:05/08/2024 07:55:55 PM Interpretation: Performing Lab:[facility]STIANO [facility], [address] [place], [address] Ronnie Maldonado Notes/Report: FASTING:YES FASTING: YES For adults, a slight decrease in the calculated MCHC value (in the range of 30 to 32 g/dL) is most likely not clinically significant; however, it should be interpreted with caution in correlation with other red cell parameters and the patient's clinical condition. WHITE BLOOD CELL COUNT 10.1 3.8-10.8 Thousand/uL N RED BLOOD CELL COUNT 5.25 4.20-5.80 Million/uL N HEMOGLOBIN 15.2 13.2-17.1 g/dL N HEMATOCRIT 47.6 38.5-50.0 % N MCV 90.7 80.0-100.0 fL N MCH 29.0 27.0-33.0 pg N MCHC 31.9 32.0-36.0 g/dL L RDW 13.6 11.0-15.0 % N PLATELET COUNT 276 140-400 Thousand/uL N MPV 10.8 7.5-12.5 fL N ABSOLUTE NEUTROPHILS 6585 8056-5617 cells/uL N ABSOLUTE LYMPHOCYTES 2333 850-3900 cells/uL N ABSOLUTE MONOCYTES 1071 200-950 cells/uL H ABSOLUTE EOSINOPHILS 71 15-500 cells/uL N ABSOLUTE BASOPHILS 40 0-200 cells/uL N NEUTROPHILS 65.2 N LYMPHOCYTES 23.1 N MONOCYTES 10.6 N EOSINOPHILS 0.7 N BASOPHILS 0.4 N VITAMIN B12/FOLATE, SERUM PA DEMARCO Reviewed date:05/08/2024 07:55:55 PM Interpretation: Performing Lab:[facility]ANNA [facility], [facility] [place], [address] Ronnie Maldonado MD Notes/Report: FASTING:YES FASTING: YES IRON AND TOTAL IRON BINDING CAPACITY Reviewed date:05/08/2024 07:55:55 PM Interpretation: Performing Lab:Constantin OTERO, [facility] [place], [address] Ronnie Maldonado MD Notes/Report: FASTING:YES FASTING: YES LIPID PANEL Reviewed date:05/08/2024 07:55:55 PM Interpretation: Performing Lab:[facility]IANO [facility], [address] [place], [address] Ronnie Maldonado Notes/Report: FASTING:YES FASTING: YES SED RATE BY KIRK PIERCE Reviewed date:05/08/2024 07:55:55 PM Interpretation: Performing Lab:[facility]O [facility], [address] [place], [address] Ronnie Maldonado Notes/Report: FASTING:YES FASTING: YES SED RATE BY KIRK ANTHONY 27 < OR = 15 mm/h H T4, FREE Reviewed date:05/08/2024 07:55:55 PM Interpretation: Performing Lab:SL, [facility], [address] , [place], [address] [facility]isy Carol Notes/Report: FASTING:YES FASTING: YES TSH Reviewed date:05/08/2024 07:55:55 PM Interpretation: Performing Lab:SL, [facility], [address] [place], [address] [facility] Center[facility]ee Medina Notes/Report: FASTING:YES FASTING: YES THYROID PEROXIDASE ANTIBODIE S Reviewed date:05/08/2024 07:55:55 PM Interpretation: Performing Lab:CB, [facility], [address] [facility] [place], [address] James Gomez Notes/Report: FASTING:YES FASTING: YES TESTOSTERONE, FREE (DIALYSIS ) AND TOTAL,MS Reviewed date:05/08/2024 07:55:55 PM Interpretation: Performing Lab:Z3E, [facility], [facility] [address], [address], [place], [address] Ricki Rodriguez MD,PhD Notes/Report: FASTING:YES FASTING: YES TESTOSTERONE, FREE (DIALYSIS ) AND TOTAL,MS (15334) Reviewed date:05/21/2024 04:05:12 PM Interpretation: Performing Lab:Z3E, [facility]-WgoXajpqe[address] [address], [address] SystemSjobpeidodOZ[address] Ricki Rodriguez MD,PhD Notes/Report: TESTOSTERONE, TOTAL, MS 747 816-5053 ng/dL L Men with clinically significant hypogonadal symptoms and testosterone values repeatedly in the range of the 200-300 ng/dL or less, may benefit from testosterone treatment after adequate risk and benefits counseling. For additional information, please refer to https://education.BeneChill.Achaogen/faq/ZGH772 (This link is being provided for informational/educational purposes only.) (Note) This test was developed and its analytical performance characteristics have been determined by [employer]. It has not been cleared or approved by the FDA. This assay has been validated pursuant to the CLIA regulations and is used for clinical purposes. TESTOSTERONE, FREE 50.8 35.0-155.0 pg/mL (Note) This test was developed and its analytical performance characteristics have been determined by [facility]. It has not been cleared or approved by the FDA. This assay has been validated pursuant to the CLIA regulations and is used for clinical purposes. [facility] [address] [address],[address] [facility] [address] Ricki Rodriguez MD, PhD PROLACTIN (746) Reviewed date:05/17/2024 08:36:24 PM Interpretation: Performing Lab:Constantin OTEROa[address], VftvsyVH[address] Ronnie Maldonado MD Notes/Report: PROLACTIN 3.1 2.0-18.0 ng/mL N LH (615) Reviewed date:05/17/2024 08:36:24 PM Interpretation: Performing Lab:Constantin OTERO01[place]hti [place] Ronnie Maldonado MD Notes/Report: LH 2.6 1.5-9.3 mIU/mL N FSH (470) Reviewed date:05/17/2024 08:36:24 PM Interpretation: Performing Lab:Constantin OTEROa101Sera Saucedo, YscanuQX[address] Ronnie Maldonado MD Notes/Report: FSH 1.9 1.4-12.8 mIU/mL N DHEA SULFATE Reviewed date:05/08/2024 07:55:55 PM Interpretation: Performing Lab:Constantin OTERO, [address] [place], [address] Ronnie Maldonado MD Notes/Report: FASTING:YES FASTING: YES T3, FREE Reviewed date:05/08/2024 07:55:55 PM Interpretation: Performing Lab:Constantin OTERO, [address] [place], [address] Ronnie Maldonado MD Notes/Report: FASTING:YES FASTING: YES FABY IFA SCREEN W/REFL TO TIT ER AND PATTERN, IFA Reviewed date:05/08/2024 07:55:55 PM Interpretation: Performing Lab:Constantin OTERO, [address] [place], [address] Ronnie Maldonado MD Notes/Report: FASTING:YES FASTING: YES ACTH, PLASMA Reviewed date:05/08/2024 07:55:55 PM Interpretation: Performing Lab:Constantin ZEE/[facility], [address] , [place], [address] Keshawn Dumont M.D.,PhD Notes/Report: FASTING:YES FASTING: YES VITAMIN D, 25-HYDROXY, LC/MS /MS Reviewed date:05/08/2024 07:55:55 PM Interpretation: Performing Lab:Constantin OTERO-[place], [address] [place], [address] Ronnie Maldonado MD Notes/Report: FASTING:YES FASTING: YES COMPREHENSIVE METABOLIC PANE L Reviewed date:05/08/2024 07:55:55 PM Interpretation: Performing Lab:Constantin [facility], [address], [place], [address] Ronnie Maldonado Notes/Report: FASTING:YES FASTING: YES CORTISOL, TOTAL Reviewed date:05/01/2024 02:46:50 PM Interpretation: Performing Lab:Constantin [facility]TERO-[place], [address] [place], [address] Ronnie Maldonado MD Notes/Report: FASTING:YES FASTING: YES Reference Range: For 8 a.m.(7-9 a.m.) Specimen: 4.0-22.0 Reference Range: For 4 p.m.(3-5 p.m.) Specimen: 3.0-17.0 * Please interpret above results accordingly * CORTISOL, TOTAL 0.6 L DEXAMETHASONE Reviewed date:05/01/2024 02:59:59 PM Interpretation: Performing Lab:Constantin PAGE/[facility],, [address] [address] [facility], [address] Joellen Jain MD,PhD,[place] Notes/Report: FASTING:YES FASTING: YES DEXAMETHASONE (14337) Reviewed date:05/08/2024 07:55:55 PM Interpretation: Performing Lab:Constantin PAGE/[facility],[address] [facility] Joellen Jain MD,PhD,[place] Notes/Report: FASTING:YES FASTING: YES DEXAMETHASONE 200 Reference Ranges for Dexamethasone: Baseline: Less than 20 ng/dL 1 mg dexamethasone overnight: 180-550 ng/dL (8:00-10:00 AM) This test was developed and its analytical performance characteristics have been determined by [facility]. It has not been cleared or approved by FDA. This assay has been validated pursuant to the CLIA regulations and is used for clinical purposes. CORTISOL, TOTAL (367) Reviewed date:05/08/2024 07:55:55 PM Interpretation: Performing Lab:Constantin OTERO-Fdbvpu41774 [place] Ronnie Maldonado MD Notes/Report: FASTING:YES FASTING: YES CORTISOL, TOTAL 0.6 L Reference Range: For 8 a.m.(7-9 a.m.) Specimen: 4.0-22.0 Reference Range: For 4 p.m.(3-5 p.m.) Specimen: 3.0-17.0 * Please interpret above results accordingly * DEXAMETHASONE (41715) Reviewed date:07/30/2024 08:54:16 AM Interpretation: Performing Lab:Constantin PAGE/[facility],[address] [facility] Joellen Jain MD,PhD,[place] Notes/Report: FASTING:YES FASTING: YES DEXAMETHASONE 323 Reference Ranges for Dexamethasone: Baseline: Less than 20 ng/dL 1 mg dexamethasone overnight: 180-550 ng/dL (8:00-10:00 AM) This test was developed and its analytical performance characteristics have been determined by [facility]. It has not been cleared or approved by the FDA. This assay has been validated pursuant to the CLIA regulations and is used for clinical purposes. CORTISOL, TOTAL (367) Reviewed date:07/21/2024 10:28:36 PM Interpretation: Performing Lab:Constantin OTERO-Ffmqvf09168 [place] Mc[place] Ronnie Maldonado MD Notes/Report: FASTING:YES FASTING: YES CORTISOL, TOTAL 3.3 N Reference Range: For 8 a.m.(7-9 a.m.) Specimen: 4.0-22.0 Reference Range: For 4 p.m.(3-5 p.m.) Specimen: 3.0-17.0 * Please interpret above results accordingly * ACTH, PLASMA (211) Reviewed date:05/10/2024 09:31:53 AM Interpretation: Performing Lab:Constantin ZEE/Charisse KirkYelena [place] [facility] [address], FfpnmkyzmRY[address] Keshawn Dumont M.D.,PhD Notes/Report: FASTING:YES FASTING: YES ACTH, PLASMA 23 6-50 pg/mL Reference range applies only to specimens collected between 7am-10am. TESTOSTERONE, FREE (DIALYSIS ) AND TOTAL,MS (80855) Reviewed date:05/10/2024 09:31:53 AM Interpretation: Performing Lab:Adrianne, [facility]-NbwTyiagc[address] [address], [address] HospitalKyxvccpjsyQH[address] Ricki Rodriguez MD,PhD Notes/Report: FASTING:YES FASTING: YES TESTOSTERONE, TOTAL, MS [address] ng/dL L Men with clinically significant hypogonadal symptoms and testosterone values repeatedly in the range of the 200-300 ng/dL or less, may benefit from testosterone treatment after adequate risk and benefits counseling. For additional information, please refer to https://education.Favoe/faq/XPT047 (This link is being provided for informational/educational purposes only.) (Note) This test was developed and its analytical performance characteristics have been determined by [facility]. It has not been cleared or approved by the FDA. This assay has been validated pursuant to the CLIA regulations and is used for clinical purposes. TESTOSTERONE, FREE 39.4 35.0-155.0 pg/mL (Note) This test was developed and its analytical performance characteristics have been determined by [facility]. It has not been cleared or approved by the FDA. This assay has been validated pursuant to the CLIA regulations and is used for clinical purposes. [facility] [address] [address],[address] [facility] [id number] Ricki Rodriguez MD, PhD .VITAMIN D,25-OH,TOTAL,IA (1 7327) Reviewed date:05/10/2024 09:31:53 AM Interpretation: Performing Lab:Constantin OTEROa10101 [place] Mc[place] Ronnie Maldonado MD Notes/Report: FASTING:YES FASTING: YES VITAMIN D,25-OH,TOTAL,IA 25 30-100 ng/mL L Vitamin D Status 25-OH Vitamin D: Deficiency: <20 ng/mL Insufficiency: 20 - 29 ng/mL Optimal: > or = 30 ng/mL For 25-OH Vitamin D testing on patients on D2-supplementation and patients for whom quantitation of D2 and D3 fractions is required, the QuestAssureD(TM) 25-OH VIT D, (D2,D3), LC/MS/MS is recommended: order code 87664 (patients >2yrs). See Note 1 Note 1 For additional information, please refer to http://education.The Luxe Nomad/faq/ODO357 (This link is being provided for informational/ educational purposes only.) T3, FREE (68221) Reviewed date:05/10/2024 09:31:53 AM Interpretation: Performing Lab:Constantin OTEROa10101 [address] Mc[place] Ronnie Maldonado MD Notes/Report: FASTING:YES FASTING: YES T3, FREE 3.5 3.0-4.7 pg/mL N TSH (899) Reviewed date:05/10/2024 09:31:53 AM Interpretation: Performing Lab:Constantin [place]Ke[place] [address] [address] Notes/Report: FASTING:YES FASTING: YES TSH 3.41 0.50-4.30 mIU/L N T4, FREE (866) Reviewed date:05/10/2024 09:31:53 AM Interpretation: Performing Lab:Constantin [place]OKe[place] [address] [address] Joel Notes/Report: FASTING:YES FASTING: YES T4, FREE 1.4 0.8-1.4 ng/dL N VITAMIN B12/FOLATE, SERUM PA DEMARCO (7403) Reviewed date:05/10/2024 09:31:53 AM Interpretation: Performing Lab:Constantin OTERO-Rimqfy38575 [address] Mc[place] Ronnie Maldonado MD Notes/Report: FASTING:YES FASTING: YES VITAMIN B12 881 044-3806 pg/mL N Please Note: Although the reference range for vitamin B12 is 200-1100 pg/mL, it has been reported that between 5 and 10% of patients with values between 200 and 400 pg/mL may experience neuropsychiatric and hematologic abnormalities due to occult B12 deficiency; less than 1% of patients with values above 400 pg/mL will have symptoms. FOLATE, SERUM 7.7 N Reference Range Low: <3.4 Borderline: 3.4-5.4 Normal: >5.4 DHEA SULFATE (402) Reviewed date:05/10/2024 09:31:53 AM Interpretation: Performing Lab:Constantin OTERO-Fxqygi14085V[place]hti [place]ira[address] Ronnie Maldonado MD Notes/Report: FASTING:YES FASTING: YES DHEA SULFATE 234 20-480 mcg/dL N INSULIN (561) Reviewed date:05/10/2024 09:31:53 AM Interpretation: Performing Lab:Constantin OTERO-Fjidia55106V[place]hti [place]ira[address] Ronnie Maldonado MD Notes/Report: FASTING:YES FASTING: YES INSULIN 45.8 H Reference Range < or = 18.4 Risk: Optimal < or = 18.4 Moderate NA High >18.4 Adult cardiovascular event risk category cut points (optimal, moderate, high) are based on Insulin Reference Interval studies performed at [facility] in 2021. .HEMOGLOBIN A1c (496) Reviewed date:05/10/2024 09:31:53 AM Interpretation: Performing Lab:Constantin [facility]VARADO-[facility] Center[facility]vyhh[address] Ronnie Maldonado Notes/Report: FASTING:YES FASTING: YES HEMOGLOBIN A1c 5.2 <5.7 % of total Hgb N For the purpose of screening for the presence of diabetes: <5.7% Consistent with the absence of diabetes 5.7-6.4% Consistent with increased risk for diabetes (prediabetes) > or =6.5% Consistent with diabetes This assay result is consistent with a decreased risk of diabetes. Currently, no consensus exists regarding use of hemoglobin A1c for diagnosis of diabetes in children. According to [place] Diabetes Association (ADA) guidelines, hemoglobin A1c <7.0% represents optimal control in non- diabetic patients. Different metrics may apply to specific patient populations. Standards of Medical Care in Diabetes(ADA). FABY SCREEN, IFA, W/REFL TITE R AND PATTERN (249) Reviewed date:05/10/2024 09:31:53 AM Interpretation: Performing Lab:SHANNA [facility]-Sbwhha32213 [address], HjrkogYG[address] Ronnie Maldonado MD Notes/Report: FASTING:YES FASTING: YES FABY SCREEN, IFA NEGATIVE NEGATIVE N FABY IFA is a first line screen for detecting the presence of up to approximately 150 autoantibodies in various autoimmune diseases. A negative FABY IFA result suggests an FABY-associated autoimmune disease is not present at this time, but is not definitive. If there is high clinical suspicion for Sjogren's syndrome, testing for anti-SS-A/Ro antibody should be considered. Anti-Jenny-1 antibody should be considered for clinically suspected inflammatory myopathies. AC-0: Negative International Consensus on FABY Patterns (https://doi.org/10.1515/c mek-2972-8888) For additional information, please refer to http://education.Confluence Technologies.Achaogen/faq/VBC635 (This link is being provided for informational/ educational purposes only.) THYROID PEROXIDASE ANTIBODIE S (5067) Reviewed date:05/10/2024 09:31:53 AM Interpretation: Performing Lab:CATHY [facility]Alon Pqfk8432 [facility] CenterEokeOQ[address] James Gomez Notes/Report: FASTING:YES FASTING: YES THYROID PEROXIDASE ANTIBODIES 1 <9 IU/mL SED RATE BY MODIFIED JOAQUIN PIERCE (809) Reviewed date:05/10/2024 09:31:53 AM Interpretation: Performing Lab:CHRISTIANO [facility] CenterGofpl[address] PyrpzrlUS[address] Ronnie Maldonado Notes/Report: FASTING:YES FASTING: YES SED RATE BY MODIFIED GABRIELLE 27 < OR = 15 mm/h H .CBC (INCLUDES DIFF/PLT) (63 99) Reviewed date:05/10/2024 09:31:53 AM Interpretation: Performing Lab:CHRISTIANO [facility] [address] Spence IxydmgsWB[address] [facility] Notes/Report: FASTING:YES FASTING: YES WHITE BLOOD CELL COUNT 10.1 3.8-10.8 Thousand/uL N RED BLOOD CELL COUNT 5.25 4.20-5.80 Million/uL N HEMOGLOBIN 15.2 13.2-17.1 g/dL N HEMATOCRIT 47.6 38.5-50.0 % N MCV 90.7 80.0-100.0 fL N MCH 29.0 27.0-33.0 pg N MCHC 31.9 32.0-36.0 g/dL L For adults, a slight decrease in the calculated MCHC value (in the range of 30 to 32 g/dL) is most likely not clinically significant; however, it should be interpreted with caution in correlation with other red cell parameters and the patient's clinical condition. RDW 13.6 11.0-15.0 % N PLATELET COUNT 276 140-400 Thousand/uL N MPV 10.8 7.5-12.5 fL N ABSOLUTE NEUTROPHILS 6585 2769-9291 cells/uL N ABSOLUTE LYMPHOCYTES 2333 850-3900 cells/uL N ABSOLUTE MONOCYTES 1071 200-950 cells/uL H ABSOLUTE EOSINOPHILS 71 15-500 cells/uL N ABSOLUTE BASOPHILS 40 0-200 cells/uL N NEUTROPHILS 65.2 N LYMPHOCYTES 23.1 N MONOCYTES 10.6 N EOSINOPHILS 0.7 N BASOPHILS 0.4 N .LIPID PANEL, STANDARD (7600 ) Reviewed date:05/10/2024 09:31:53 AM Interpretation: Performing Lab:CHRISTIANO [facility] CenterJdbir[address] UkqtylpEL[address] [facility] Notes/Report: FASTING:YES FASTING: YES CHOLESTEROL, TOTAL 200 <170 mg/dL H HDL CHOLESTEROL 48 >45 mg/dL N TRIGLYCERIDES 102 <90 mg/dL H LDL-CHOLESTEROL 132 <110 mg/dL (calc) H LDL-C is now calculated using the Korina calculation, which is a validated novel method providing better accuracy than the Friedewald equation in the estimation of LDL-C. Asif CALABRESE et al. DEON. 2013;310(19): 9981-2850 (http://education.QuestDia gnostics.com/faq/XZS730) CHOL/HDLC RATIO 4.2 <5.0 (calc) N NON HDL CHOLESTEROL 152 <120 mg/dL (calc) H For patients with diabetes plus 1 major ASCVD risk factor, treating to a non-HDL-C goal of <100 mg/dL (LDL-C of <70 mg/dL) is considered a therapeutic option. IRON AND TOTAL IRON BINDING CAPACITY (7573) Reviewed date:05/10/2024 09:31:53 AM Interpretation: Performing Lab:SHANNA [facility]-Epeuzl94225 [address], OjrpkbXS[address] Ronnie Maldonado MD Notes/Report: FASTING:YES FASTING: YES IRON, TOTAL 60 27-164 mcg/dL N IRON BINDING CAPACITY 382 271-448 mc g/dL (calc) N % SATURATION 16 16-48 % (calc) N MAGNESIUM (622) Reviewed date:05/10/2024 09:31:53 AM Interpretation: Performing Lab:CHRISTIANO [facility]CS[facility] [address] [address] Sp[address] [place] Notes/Report: FASTING:YES FASTING: YES MAGNESIUM 2.3 1.5-2.5 mg/dL N .COMPREHENSIVE METABOLIC NOLASCO EL (37068) [facility] Reviewed date:05/10/2024 09:31:53 AM Interpretation: Performing Lab:CHRISTIANO [facility]CS[facility] [address] [address] [address] [facility] [place] Notes/Report: FASTING:YES FASTING: YES GLUCOSE 86 65-99 mg/dL N Fasting reference interval UREA NITROGEN (BUN) 13 7-20 mg/dL N CREATININE 0.71 0.60-1.24 mg/dL N EGFR 136 > OR = 60 mL/min/1.73m2 N BUN/CREATININE RATIO SEE NOTE: 6-22 (calc) Not Reported: BUN and Creatinine are within reference range. SODIUM 138 135-146 mmol/L N POTASSIUM 4.3 3.8-5.1 mmol/L N CHLORIDE 104 98-110 mmol/L N CARBON DIOXIDE 27 20-32 mmol/L N CALCIUM 9.1 8.9-10.4 mg/dL N PROTEIN, TOTAL 6.9 6.3-8.2 g/dL N ALBUMIN 4.1 3.6-5.1 g/dL N GLOBULIN 2.8 2.1-3.5 g/dL (calc) N ALBUMIN/GLOBULIN RATIO 1.5 1.0-2.5 (calc) N BILIRUBIN, TOTAL 0.5 0.2-1.1 mg/dL N ALKALINE PHOSPHATASE 84 46-169 U/L N AST 19 12-32 U/L N ALT 35 8-46 U/L N Reason For Referral No Information Medications Medication SIG (Take, Route, Frequency, Duration) Notes Start Date End Date Status Taltz 80 MG/ML Solution Auto-injector as directed Subcutaneous Ac tive Social History Social History Additional Details Category Social Info Options Details Migrated Social History Migrated Social History (Alcohol:):no (Recreational drug use:):no (Smoking:):yes Patient is a: Patient uses a vape Section Notes: Non-Contributory Non-Contributory Problems Problem Type SNOMED Code ICD Code Onset Dates Problem Status W/U Status Risk Notes Problem Disorder of pituitary gland (744300858) Disorder of pituitary gland, unspecified (E23.7) Active confirmed Problem Disorder of adrenal gland (96443939) Disorder of adrenal gland, unspecified (E27.9) Active confirmed Problem Testicular dysfunction (74883535) Testicular dysfunction, unspecified (E29.9) Active confirmed Problem Obesity (524655149) Obesity, unspecified (E66.9) Active confirmed Problem Obstructive sleep apnea syndrome (disorder) (15467384) Obstructive sleep apnea (adult) (pediatric) (G47.33) Active confirmed Problem Psoriasis (7283897) Psoriasis, unspecified (L40.9) Active confirmed Problem Polyarthritis (956189526) Polyarthritis, unspecified (M13.0) Active confirmed Problem Insulin resistance (893858674) Insulin resistance (E88.819) Active confirmed Problem Vitamin D deficiency (76736554) Vitamin D deficiency (E55.9) Active confirmed Vital Signs Heart Rate 82 /min 07/24/2024 Height-cm 170.18 cm 07/24/2024 Oximetry 96 % 07/24/2024 Blood pressure diastolic 81 mm Hg 07/24/2024 Weight-kg 143.34 kg 07/24/2024 BMI Percentile 99.96 % 07/24/2024 Height 67 in 07/24/2024 Blood pressure systolic 120 mm Hg 07/24/2024 Weight 316 lbs 07/24/2024 BMI 49.49 kg/m2 07/24/2024 Encounters Encounter Location Date Provider Diagnosis [facility] Dr[facility] Chi [address] [place] [phone] 04/22/2024 Monicaxavier Chi Obesity, unspecified E66.9 ; Abnormal weight gain R63.5 ; Other fatigue R53.83 ; Obstructive sleep apnea (adult) (pediatric) G47.33 ; Psoriasis, unspecified L40.9 and Polyarthritis, unspecified M13.[address] Chi [address] [place] [phone] 05/12/2024 Monica Chi Obesity, unspecified E66.9 ; Vitamin D deficiency E55.9 ; Testicular dysfunction, unspecified E29.9 ; Other fatigue R53.83 ; Insulin resistance E88.819 and Dietary counseling and surveillance Z71.[address] Chi [address] [place] [phone] 06/10/2024 Monica Chi Obesity, unspecified E66.9 ; Testicular dysfunction, unspecified E29.9 and Dietary counseling and surveillance Z71.[address] Chi [address] [place] [phone] 07/24/2024 Monica Chi Testicular dysfuncti on, unspecified E29.9 ; Insulin resistance E88.819 ; Obesity, unspecified E66.9 ; Hypercortisolism E24.9 ; Disorder of adrenal gland, unspecified E27.9 ; Disorder of pituitary gland, unspecified E23.7 and Dietary counseling and surveillance Z71.[address] [address] 08/21/20[address] [address] 09/09/2024 Monica Chi Assessments Encounter Date Diagnosis (ICD Code) Assessment Notes Treatment Notes Treatment Clinical Notes Section Notes 04/22/2024 Obesity, unspecified (ICD-10 - E66.9) 04/22/2024 Abnormal weight gain (ICD-10 - R63.5) 05/12/2024 Obesity, unspecified (ICD-10 - E66.9) 05/12/2024 Vitamin D deficiency (ICD-10 - E55.9) 06/10/2024 Obesity, unspecified (ICD-10 - E66.9) 07/24/2024 Testicular dysfunction, unspecified (ICD-10 - E29.9) 07/24/2024 Insulin resistance (ICD-10 - E88.819) 07/24/2024 Obesity, unspecified (ICD-10 - E66.9) 06/10/2024 Testicular dysfunction, unspecified (ICD-10 - E29.9) 04/22/2024 Other fatigue (ICD-10 - R53.83) 05/12/2024 Testicular dysfunction, unspecified (ICD-10 - E29.9) 05/12/2024 Other fatigue (ICD-10 - R53.83) 04/22/2024 Obstructive sleep apnea (adult) (pediatric) (ICD-10 - G47.33) 06/10/2024 Dietary counseling and surveillance (ICD-10 - Z71.3) Spent 15 minutes preventative counseling patient on dietary recommendations and changes in setting of hyperglycemia- need to restrict refined sugars and processed foods and incorporate up to 150 minutes of moderate level activity weekly. 07/24/2024 Hypercortisolism (ICD-10 - E24.9) 07/24/2024 Disorder of adrenal gland, unspecified (ICD-10 - E27.9) 05/12/2024 Insulin resistance (ICD-10 - E88.819) 04/22/2024 Psoriasis, unspecified (ICD-10 - L40.9) 04/22/2024 Polyarthritis, unspecified (ICD-10 - M13.0) 07/24/2024 Disorder of pituitary gland, unspecified (ICD-10 - E23.7) 05/12/2024 Dietary counseling and surveillance (ICD-10 - Z71.3) Spent 15 minutes preventative counseling patient on dietary recommendations and changes in setting of hyperglycemia- need to restrict refined sugars and processed foods and incorporate up to 150 minutes of moderate level activity weekly. 07/24/2024 Dietary counseling and surveillance (ICD-10 - Z71.3) Spent 15 minutes preventative counseling patient on dietary recommendations and changes in setting of hyperglycemia- need to restrict refined sugars and processed foods and incorporate up to 150 minutes of moderate level activity weekly. 04/22/2024 Other Assessment and Plan: ObesityPatient presents [...] sick contacts reported. Scheduled to see a breakfast and room attendant next month. Await gastroenterology consultation and clearance before initiating any weight loss medications Consider further diagnostic tests based on breakfast and room attendant's recommendations PsoriasisPatient has a known diagnosis of psoriasis and is currently being treated with Taltz (ixekizumab), likely at a dose of 40mg. Under the care of a pest technician for this condition. Continue current treatment with Taltz as prescribed Maintain follow-up with pest technician Cognitive SymptomsPatient reports difficulties with focus, memory, [...] procedures, referring and communicating with other health wound care rn, documenting clinical information in the electronic or other health record, independently interpreting results and communicating results to the patient/family/caregiver and care coordinating patient plan. Patient alert and oriented x 4 and aware of discussion noted above and in agreeance to plan in management of obesity, abnormal weight gain, fatigue, MICHELET, hx of fatigue and arthritis. 05/12/2024 Other Assessment and Plan: Insulin ResistancePatient's blood glucose is 87, indicating no diabetes, but elevated insulin levels suggest insulin resistance.Initiate Zepbound (tirzepatide) 2.5 mg subcutaneously once weekly for 4 weeks, then increase to 5 mg weekly for 90 days. Handwritten scripts providedAdminister injection in the abdomen with a large dinner, preferably on weekends.Monitor for nausea; if severe, consider prescribing Zofran (ondansetron).Recheck in 8 weeks to assess progress.Dietary recommendations: small meals 4 times daily, focusing on fruits, vegetables, lean meats, and adequate hydration.Target weight loss of 1 pound per week. HypogonadismTestosterone level is low at 197 ng/dL.Check LH and FSH levels before initiating testosterone therapy.Reassess need for testosterone replacement after weight loss efforts.Follow up in 8 weeks to discuss potential testosterone therapy initiation. Vitamin D DeficiencyPrescribe ergocalciferol (vitamin D2) 50,000 IU orally once weekly for 12 weeks. Handwritten script provided Obstructive Sleep ApneaEmphasize the importance of regular CPAP use.Consider sleep study for insurance coverage of Zepbound (tirzepatide). DyslipidemiaLipid panel shows borderline elevated levels.Recommend cwyh-jos-[id number] fish oil supplementation.Focus on weight loss and glycemic control to improve lipid profile.Target LDL reduction to 120 mg/dL.Reassess lipid panel at follow-up. Mild AnemiaLikely related to nutritional deficiencies.Encourage adequate protein and iron intake in diet. Follow-up:Schedule a follow-up appointment in 8 weeks to review progress and reassess treatment plans.Encourage patient to contact the clinic if any new or worsening symptoms occur. Spent 25 minutes preparing to see the patient (ex review of tests/chart), obtaining and / or reviewing separately obtained history, performing a medically appropriate examination and/or evaluation, counseling and educating the patient/family/caregiver, ordering medications, tests, or procedures, referring and communicating with other health wound care rn, documenting clinical information in the electronic or other health record, independently interpreting results and communicating results to the patient/family/caregiver and care coordinating patient plan. Patient alert and oriented x 4 and aware of discussion noted above and in agreeance to plan in management of obesity/weight management in setting of MICHELET, hypogonadism, fatigue, insulin resistance and vit D def. 06/10/2024 Other Assessment and Plan: 1. Suspected Hypercortisolism- Repeat dexamethasone suppression test (DST)- Perform cortisol saliva test- Measure DHEAS levels- Monitor for weight loss- Address insomnia and anxiety symptoms 2. Metabolic Concerns- Consider initiating metformin (pending decision)- Implement dietary changes: - Increase fiber, fruits, and vegetables intake - Avoid fast food- Patient to sign treatment contract acknowledging potential side effects (nausea, vomiting, abdominal issues)- Prescribe Zofran for nausea if needed- Recommend increased water intake to prevent constipation- Provide enema if necessary 3. Hypertension- Monitor blood pressure at future visits Spent 25 minutes preparing to see the patient (ex review of tests/chart), obtaining and / or reviewing separately obtained history, performing a medically appropriate examination and/or evaluation, counseling and educating the patient/family/caregiver, ordering medications, tests, or procedures, referring and communicating with other health wound care rn, documenting clinical information in the electronic or other health record, independently interpreting results and communicating results to the patient/family/caregiver and care coordinating patient plan. Patient alert and oriented x 4 and aware of discussion noted above and in agreeance to plan in management of obesity/weight management, low testosterone and concern for hypercortisolism. 07/24/2024 Other Assessment and Plan: 1. Hypercortisolism (suspected)- Order CT scan of adrenal glands- Plan for pituitary MRI after adrenal imaging- Continue monitoring cortisol levels- Follow up on imaging results 2. Obesity- Continue tirzepatide 2.5 mg (current dose)/B12 combination x 4 weeks as patient has lost 20 pounds and overall tolerating well- Educate on portion control using smaller plates- Encourage consumption of cruciferous vegetables (broccoli, cauliflower, [place] sprouts)- Recommend use of real butter instead of margarine- Monitor weight loss progress and adjust treatment as needed- Continue to assess for side effects and tolerance of medication 3. Vitamin B12 supplementation- Continue current B12 supplementation- Monitor effectiveness and reassess at next visit Spent 20 minutes preparing to see the patient (ex review of tests/chart), obtaining and / or reviewing separately obtained history, performing a medically appropriate examination and/or evaluation, counseling and educating the patient/family/caregiver, ordering medications, tests, or procedures, referring and communicating with other health wound care rn, documenting clinical information in the electronic or other health record, independently interpreting results and communicating results to the patient/family/caregiver and care coordinating patient plan. Patient alert and oriented x 4 and aware of discussion noted above and in agreeance to plan in management of hypercortisolism, obesity, insulin resistance and need to rule out pituitary or adrenal source of hypercortisolism. Plan Of Treatment Pending Test Test Name Order Date *CT ABDOMEN W/O CONTRAST 34687 [id number] *MRI BRAIN W/O AND W/ CONTRAST [SELLATUR ISICA] [id number] 07/24/2024 Next Appt Details Provider Name:Monica Chi, 03:20:00 PM, [address] [place] [address], [place], [phone], Insurance Providers Payer Name Payer Address Payer Phone Subscriber Number Group Number Insured Name Patient Relationship to Insured Coverage Start Date Coverage End Date [facility] [address] [place] [address] [phone] [id number] Huey Dick Self - patient is the insured Medical (General) History Medical History History ICD Code obesity hypogonadism Surgical History Surgery Date(Month/Year) tonsillectomy- 2010 Hospitalization History Reason Date(Month/Year) broken leg and anoids-210
--- OUTSIDE RECORDS SUMMARY | 2024-09-16 11:07 | XMS_ITS | Clinical Summary ---
Author Organization 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 Gender Identity Not on file Sexual Orientation Not on file Obstetrics History Last Filed Vital Signs Vital Sign Reading [...] A M CDT Height 170.2 cm (5' 7) 01/14/2024 11:02 PM CDT Body Mass Index 51.45 01/14/2024 11:02 PM CDT Plan of Treatment Health Maintenance Due Date Last Done Comments Depression Screening 2004 Hepatitis C Screening 2004 Meningococcal B Vaccine (1 o f 2 - Standard) 2020 Regular Well Visit/Exam 18-64 2022 Influenza Vaccine (Season Ended) 2024 05/04/2022, 03/15/2021, 01/12/2020, Additional history exists DTaP/Tdap/Td Vaccine (7 - Td or Tdap) 03/15/2031 03/15/2021, 11/25/2009, 01/02/2006, Additional history exists Hepatitis B Screening Completed 03/23/2005 , 01/17/2005, 2004, Additional history exists Pneumococcal vaccine <65 Completed 006, 03/23/2005, 01/17/2005, Additional history exists Varicella Vaccines Completed 11/05/2008, 09/21/2005 HPV Vaccines Completed 11/21/2018, 09/10/2017 Meningococcal Vaccine Completed 03/15/2021 Insurance [employer] COVENTRY HMO/POS [employer] COVENTRY HMO/POS [facility] PPO Care Teams Cytopathology Technologist Relationship Specialty Start Date End Date Rahel Aiken MD [address] [place] [address] PCP - General 11/15/16
--- OUTSIDE RECORDS SUMMARY | 2024-09-16 11:07 | XMS_ITS ---
Author Organization [facility] Address [address] [place] [phone] Care Team Providers Care Terra Cotta Roofer Name Role Phone Monica Chi Primary Care Provider REASON FOR VISIT weight loss f/u Encounters Encounter Location Date Provider Diagnosis AMMO Dr. Chi [address] [place] [address] 07/15/2024 Monica Chi Plan Of Treatment Next Appt Details Provider Name:Monica Chi, 03:20:00 PM, [address] [place] [address], [phone], Progress Notes * Huey COHENDOB: 5 (19 yo M)Acc No.[id number]:07/15/2024 Progress Notes Patient: Huey Brink Provider: Clover Chi MD :2005 A ge:18 Y S ex:Male Date:07/15/2024 Address:[facility] Subjective: * Chief Complaints: * W eight loss f/u * Electronic signature of Leonard Chi MD on 2024 at 11:07 AM CDT Sign off status: Pending * Provider: Clover Chi MD Date: 0 07/15/2024 Generated for Emmie carlson/Neris/eTgersmitting on: 0 2024 11:07 AM CDT
--- OUTSIDE RECORDS SUMMARY | 2024-09-16 11:07 | XMS_ITS ---
Author Organization [facility] Address [address] [place] [address] Care Team Providers Care Mangle Tender Name Role Phone Monica Chi Primary Care Provider REASON FOR VISIT est. care karen Encounters Encounter Location Date Provider Diagnosis [facility], [facility] - Monica Chi [address] [place] [address] 04/15/2024 Monica Chi Plan Of Treatment No Information Progress Notes * Huey COHENDOB: 5 (19 yo M)Acc No.[id number]:04/15/2024 Progress Notes Patient: Huey PECK Provider: Clover Chi MD :2005 A ge:18 Y S ex:Male Date:04/15/2024 Address:[facility] Subjective: * Chief Complaints: * 1 . [...] 04/15/2024 Generated for Emmie carlson/Neris/eTransmitting on: 0 2024 11:07 AM CDT History and Physical Notes * HPI (History of Present Illness) Category Sub-Category Detail Notes Category Not es Interval Hx 18 yo male come s in to establish care in management of
--- OUTSIDE RECORDS SUMMARY | 2024-09-16 11:07 | XMS_ITS | Referral Summary ---
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
--- OUTSIDE RECORDS SUMMARY | 2024-09-16 11:07 | XMS_ITS ---
Author Organization [employer] [facility] Address [address] [place] [address] Care Team Providers Care Assistant Business Manager Name Role Phone Monica Chi Primary Care Provider REASON FOR VISIT Lab FU Encounters Encounter Location Date Provider Diagnosis [facility], [facility] - Monica Chi [address] [place] [address] 05/12/2024 Monica Chi Plan Of Treatment No Information Progress Notes * Huey COHENDOB: 5 (19 yo M)Acc No.[id number]:05/12/2024 Progress Notes Patient: Huey PECK Provider: Clover Chi MD :2005 A ge:18 Y S ex:Male Date:05/12/2024 Address:[facility] Subjective: * Chief Complaints: * 1 . Lab FU. * Medical History: Objective: * Vitals: Assessment: Plan: * Treatment: * Billing Information: * Visit Code: * Procedure Codes: * Electronic signature of Leonard Chi MD on 2024 at 11:07 AM CDT Sign off status: Pending * Provider: Clover Chi MD Date: 0 05/12/2024 Generated for Emmie carlson/Neris/eTgersmitting on: 0 2024 11:07 AM CDT
--- OUTSIDE RECORDS SUMMARY | 2024-09-16 11:07 | XMS_ITS | Patient Health Record ---
Author Organization [employer] [facility] [place] Address [address] [address] Care Team Providers Care Tractor Trailer Driver Name Role Phone Monica Chi Primary Care Provider [phone] Allergies No Known Allergies Results Component Value Reference Range Notes DEXAMETHASONE (Not yet revie wed by provider) Interpretation: Performing Lab:[facility]in PAGE/[facility],, [address] [place], [address] Joellen Jain MD,PhD,[place] Notes/Report: FASTING:YES FASTING: YES DEXAMETHASONE 200 Reference Ranges for Dexamethasone: Baseline: Less than 20 ng/dL 1 mg dexamethasone overnight: 180-550 ng/dL (8:00-10:00 AM) This test was developed and its analytical performance characteristics have been determined by [facility]. It has not been cleared or approved by FDA. This assay has been validated pursuant to the CLIA regulations and is used for clinical purposes. CORTISOL, TOTAL Reviewed date:05/01/2024 02:46:50 PM Interpretation: Performing Lab:[facility], [address] [place], [address] Ronnie Maldonado MD Notes/Report: FASTING:YES FASTING: YES ACTH, PLASMA (Not yet review ed by provider) Interpretation: Performing Lab:[facility], [address], [place], [address] Keshawn Dumont M.D.,PhD Notes/Report: FASTING:YES FASTING: YES FABY IFA SCREEN W/REFL TO TIT ER AND PATTERN, IFA (Not yet reviewed by provider) Interpretation: Performing Lab:[facility], [address] [place], [address] Ronnie Maldonado MD Notes/Report: FASTING:YES FASTING: YES THYROID PEROXIDASE ANTIBODIE S (Not yet reviewed by provider) Interpretation: Performing Lab:CB, [facility], [address] [place], [address] James Kamara Jason Notes/Report: FASTING:YES FASTING: YES THYROID PEROXIDASE ANTIBODIES 1 <9 IU/mL TESTOSTERONE, FREE (DIALYSIS ) AND TOTAL,MS (Not yet reviewed by provider) Interpretation: Performing Lab:[facility], [facility], [address], [address], [place], [address] Ricki Rodriguez MD,PhD Notes/Report: FASTING:YES FASTING: YES TESTOSTERONE, TOTAL, MS [address] ng/dL Men with clinically significant hypogonadal symptoms and testosterone values repeatedly in the range of the 200-300 ng/dL or less, may benefit from testosterone treatment after adequate risk and benefits counseling. For additional information, please refer to https://education.[employer].PhoneJoy Solutions/faq/OBI423 (This link is being provided for informational/educational purposes only.) (Note) This test was developed and its analytical performance characteristics have been determined by [facility]. It has not been cleared or approved by the FDA. This assay has been validated pursuant to the CLIA regulations and is used for clinical purposes. TESTOSTERONE, FREE 39.4 35.0-155.0 pg/mL (Note) This test was developed and its analytical performance characteristics have been determined by [facility]. It has not been cleared or approved by the FDA. This assay has been validated pursuant to the CLIA regulations and is used for clinical purposes. [facility] [address] [facility] [id number] Ricki Rodriguez MD, PhD COMPREHENSIVE METABOLIC PANE L Reviewed date:05/02/2024 08:09:55 AM Interpretation: Performing Lab:, [facility], [address], [place], [address] Ronnie Maldonado Notes/Report: FASTING:YES FASTING: YES VITAMIN D, 25-HYDROXY, LC/MS /MS Reviewed date:05/02/2024 08:09:55 AM Interpretation: Performing Lab:[facility], [address], [place], [address] Ronnie Maldonado MD Notes/Report: FASTING:YES FASTING: YES T3, FREE Reviewed date:05/02/2024 08:09:55 AM Interpretation: Performing Lab:[facility], [address], [place], [address] Ronnie Maldonado MD Notes/Report: FASTING:YES FASTING: YES DHEA SULFATE Reviewed date:05/02/2024 08:09:55 AM Interpretation: Performing Lab:[facility]O, [address], [place], [address] Ronnie Maldonado MD Notes/Report: FASTING:YES FASTING: YES HEMOGLOBIN A1c Reviewed date:05/02/2024 08:09:55 AM Interpretation: Performing Lab:[facility], [address] [place], [address] Ronnie Maldonado Notes/Report: FASTING:YES FASTING: YES INSULIN Reviewed date:05/02/2024 08:09:56 AM Interpretation: Performing Lab:[facility]TERO, [address] [place], [address] Ronnie Maldonado MD Notes/Report: FASTING:YES FASTING: YES MAGNESIUM Reviewed date:05/02/2024 08:09:56 AM Interpretation: Performing Lab:[facility], [address] [place], [address] Ronnie Maldonado Notes/Report: FASTING:YES FASTING: YES CBC (INCLUDES DIFF/PLT) Reviewed date:05/02/2024 08:09:56 AM Interpretation: Performing Lab:[facility], [address] [place], [address] Ronnie Maldonado Notes/Report: FASTING:YES FASTING: YES VITAMIN B12/FOLATE, SERUM PA DEMARCO Reviewed date:05/02/2024 08:09:56 AM Interpretation: Performing Lab:[facility], [address] [place], [address] Ronnie Maldonado MD Notes/Report: FASTING:YES FASTING: YES IRON AND TOTAL IRON BINDING CAPACITY Reviewed date:05/02/2024 08:09:56 AM Interpretation: Performing Lab:[facility], [address], [place], [address] Ronnie Maldonado MD Notes/Report: FASTING:YES FASTING: YES LIPID PANEL Reviewed date:05/02/2024 08:09:56 AM Interpretation: Performing Lab:[facility], [address] , [place], [address] [facility] Notes/Report: FASTING:YES FASTING: YES SED RATE BY MODIFIED JOAQUIN PIERCE Reviewed date:05/02/2024 08:09:56 AM Interpretation: Performing Lab:[facility], [address] [place], [address] [facility] Notes/Report: FASTING:YES FASTING: YES T4, FREE Reviewed date:05/02/2024 08:09:56 AM Interpretation: Performing Lab:[facility], [address] [place], [address] [facility] Notes/Report: FASTING:YES FASTING: YES TSH Reviewed date:05/02/2024 08:09:56 AM Interpretation: Performing Lab:[facility], [address] [place], [address] [facility] Notes/Report: FASTING:YES FASTING: YES FSH (Not yet reviewed by pro vider) Interpretation: Performing Lab:[facility], [address], [place], [address] Ronnie Maldonado MD Notes/Report: LH (Not yet reviewed by prov ider) Interpretation: Performing Lab:[facility], [address], [place], [address] Ronnie Maldonado MD Notes/Report: PROLACTIN (Not yet reviewed by provider) Interpretation: Performing Lab:[facility], [address], [place], [address] VaneSandee Maldonado MD Notes/Report: TESTOSTERONE, FREE (DIALYSIS ) AND TOTAL,MS (Not yet reviewed by provider) Interpretation: Performing Lab:[facility], [facility], [address], [address], [place], [address] Ricki Rodriguez MD,PhD Notes/Report: TESTOSTERONE, TOTAL, MS 049 [address] ng/dL Men with clinically significant hypogonadal symptoms and testosterone values repeatedly in the range of the 200-300 ng/dL or less, may benefit from testosterone treatment after adequate risk and benefits counseling. For additional information, please refer to https://education.[employer].PhoneJoy Solutions/faq/JIU714 (This link is being provided for informational/educational purposes only.) (Note) This test was developed and its analytical performance characteristics have been determined by [facility]. It has not been cleared or approved by the FDA. This assay has been validated pursuant to the CLIA regulations and is used for clinical purposes. TESTOSTERONE, FREE 50.8 35.0-155.0 pg/mL (Note) This test was developed and its analytical performance characteristics have been determined by [facility]. It has not been cleared or approved by the FDA. This assay has been validated pursuant to the CLIA regulations and is used for clinical purposes. [facility] [address] [place] [id number] Ricki Rodriguez MD, PhD Reason For Referral [...] Notes Problem Obstructive sleep apnea syndrome (disorder) (76184161) Obstructive sleep apnea (adult) (pediatric) (G47.33) Active confirmed Problem Obesity, unspecified (E66.9) Active confirmed Problem Psoriasis (3566684) Psoriasis, unspecified (L40.9) Active confirmed Problem Polyarthritis (692734115) Polyarthritis, unspecified (M13.0) Active confirmed Vital Signs Heart Rate 93 /min 04/22/2024 SPO2: 94% Blood pressure diastolic 66 mm Hg 04/22/2024 SPO 2: 94% Height 67 in 04/22/2024 SPO2: 94% Blood pressure systolic 130 mm Hg 04/22/2024 SPO2 : 94% Weight 339.4 lbs 04/22/2024 SPO2: 94% BMI 53.15 kg/m2 04/22/2024 SPO2: 94% Encounters Encounter Location Date Provider Diagnosis [facility], [facility] [employer] [address] [place] [address] 05/12/2024 [facility], [email or web address] [address] [place] [address] 04/22/2024 Monica Chi Obesity, unspecified E66.9 ; [...] sick contacts reported. Scheduled to see a surfacer next month. Await gastroenterology consultation and clearance before initiating any weight loss medications Consider further diagnostic tests based on surfacer's recommendations PsoriasisPatient has a known diagnosis of psoriasis and is currently being treated with Taltz (ixekizumab), likely at a dose of 40mg. Under the care of a digital content coordinator for this condition. Continue current treatment with Taltz as prescribed Maintain follow-up with digital content coordinator Cognitive SymptomsPatient reports difficulties with focus, memory, [...] procedures, referring and communicating with other health career placement services counselor, documenting clinical information in the electronic or [...] TESTOSTERONE, FREE (DIALYSIS) AND TOTAL, MS 05/14/2024 TESTOSTERONE, FREE (DIALYSIS) AND TOTAL, MS 05/01/2024 Insurance Providers Payer Name Payer Address Payer Phone Subscriber Number Group Number Insured Name Patient Relationship to Insured Coverage Start Date Coverage End Date [facility] [address] [address] [place] [address] [id number] Huey Dick Self - patient is the insured Medical (General) History Surgical History Surgery Date(Month/Year) tonsillectomy- 2009 Hospitalization History Reason Date(Month/Year) broken leg and anoids-210
--- OUTSIDE RECORDS SUMMARY | 2024-09-16 11:07 | XMS_ITS | Clinical Summary ---
Author Organization [facility] Address [address] [place] [address] Care Team Providers Care Print Project Manager Name Role Phone Rahel Aiken MD Primary Care Provider [phone] Source Comments [facility],non-owned Affiliates and Associated Physician Practices is amultiple site organization consisting of ambulatory clinics and hospital sitesin [place], [place], [place] and [place]. This disclosure is being madepursuant to the Care Everywhere program and may not contain all information available regarding this patient. Last updated 17.[facility] Allergies No known active allergies Medications * [...] (08/01/2017): 07/05/2017: PA for Stelara denied by [facility]. 07/25/2017: Verbal PA for Otezla submitted to [facility]. 07/28/2017: Otezla denied d/t pt age. 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 Gender Identity Not on file Sexual Orientation [...] 1:12 PM CDT Height 167.9 cm (5' 6.1) 02/02/2022 1:12 PM CDT Body Mass Index 47.89 02/02/2022 1:12 PM CDT Plan of Treatment Health Maintenance [...] - PCV) 09/17/2023 COVID-19 VACCINE (1 - 2023- season) 2023 DEPRESSION SCREENING 04/02/2024 INFLUENZA VACCINE (Season Ended) 2024 03/15/2021, 01/12/2020, 04/03/2017, Additional history exists ZOSTER VACCINE (1 of 2) 2054 HIB VACCINE Aged Out No longer eligi ble based on patient's age to complete this topic MENINGOCOCCAL GROUPS A/C/Y/W VACCINE Aged Out No longer eligible based on patient's age [place] [address] Care Teams Print Project Manager Relationship Specialty Start Date End Date Rahel Aiken MD [address] [place] [address] PCP - General Pediatrics 07/05/16
== END 2024-09-16 10:01 | disposition home or self-care (01) ==
PROVIDERS: PCP Student in an Organized Health Care Education/Training Program; Visit Provider Internal Medicine Endocrinology, Diabetes & Metabolism
DX: E27.9 Disorder of adrenal gland, unspecified (principal)
CPT/HCPCS: 74150

== ENCOUNTER 2024-10-02 07:08 | Outpatient (CLI) | payer OTHER, SELFPAY ==
--- NOTE | ~2024-10-02 | MR_ITS ---
EXAMINATION: MR brain/brain stem wo/w con DATE: 10/02/2024 08:18 INDICATION: Disorder of pituitary gland TECHNIQUE: Magnetic resonance imaging (MRI) of the brain and brainstem was performed without and with 19 mL Multihance intravenous contrast. Whole-brain sequences included sagittal T1-weighted FSE, axia l diffusion-weighted FS EPI, axial 3D SWAN, axial T2-weighted FLAIR Propeller, and axial T2-weighted Propeller. Small jujgw-[id number] sequences included sagittal and coronal T1-weighted FSE centered at th e pituitary. Postcontrast sequences included small bbaik-oy-lpaf coronal T1-weighted FSE in a time c ourse and sagittal T1-weighted FSE and whole-brain axial T1-weighted FSE. Apparent diffusion coeffici ent (ADC) maps were created. COMPARISON: Head CT dated 12/27/2021 FINDINGS: There are no areas of restricted diffusion to suggest acute infarction. No intracranial hemorrhage. T here is a 2 x 3 mm hypoenhancing lesion in the midline of the anterior pituitary on the post contrast sequences. Pituitary stalk remains normal and midline. No other intracranial masses identified. Ther e are no intraparenchymal signal abnormalities seen on the other pulse sequences. The ventricles are symmetric and normal in size. There are no abnormal extra-axial fluid collections. Flow voids are see n in the cerebral arteries on the T2-weighted sequences consistent with their expected patency. Visua lized orbits and soft tissues are unremarkable. IMPRESSION: 1. 2 x 3 mm hypoenhancing lesion in the anterior pituitary on a few of the post contrast images suspi cious for microadenoma. Reviewed, dictated and finalized at location B. IMPRESSION: 1. 2 x 3 mm hypoenhancing lesion in the anterior pituitary on a few of the post contrast images suspicious for microadenoma.
--- OUTSIDE RECORDS SUMMARY | 2024-10-02 07:11 | XMS_ITS | Patient Health Record ---
Author Organization [employer] [facility] Address [address] [address] Care Team Providers Care Event Services Manager Name Role Phone Monica Chi Primary Care Provider Allergies No Known Allergies Results Component Value Reference Range Notes DEXAMETHASONE (Not yet revie wed by provider) Interpretation: Performing Lab:Constantin PAGE/[facility],, [address] [place], [address] Joellen Jain MD,PhD,[place] Notes/Report: FASTING:YES FASTING: YES DEXAMETHASONE 200 Reference Ranges for Dexamethasone: Baseline: Less than 20 ng/dL 1 mg dexamethasone overnight: 180-550 ng/dL (8:00-10:00 AM) This test was developed and its analytical performance characteristics have been determined by [facility] [employer]. It has not been cleared or approved by FDA. This assay has been validated pursuant to the CLIA regulations and is used for clinical purposes. CORTISOL, TOTAL Reviewed date:05/01/2024 02:46:50 PM Interpretation: Performing Lab:[facility], [address] [place], [address] Ronnie Maldonado MD Notes/Report: FASTING:YES FASTING: YES ACTH, PLASMA (Not yet review ed by provider) Interpretation: Performing Lab:[facility]in [facility], [address], [place], [address] Keshawn Dumont M.D.,PhD Notes/Report: FASTING:YES FASTING: YES FABY IFA SCREEN W/REFL TO TIT ER AND PATTERN, IFA (Not yet reviewed by provider) Interpretation: Performing Lab:[facility], [address] [place], [address] Ronnie Maldonado MD Notes/Report: FASTING:YES FASTING: YES THYROID PEROXIDASE ANTIBODIE S (Not yet reviewed by provider) Interpretation: Performing Lab:CB, [facility], [address] [place], [address] James Kamara Jason Notes/Report: FASTING:YES FASTING: YES THYROID PEROXIDASE ANTIBODIES 1 <9 IU/mL TESTOSTERONE, FREE (DIALYSIS ) AND TOTAL,MS (Not yet reviewed by provider) Interpretation: Performing Lab:[facility], [facility], [address], [address], [place], [address] Ricki Rodriguez MD,PhD Notes/Report: FASTING:YES FASTING: YES TESTOSTERONE, TOTAL, MS [address] ng/dL Men with clinically significant hypogonadal symptoms and testosterone values repeatedly in the range of the 200-300 ng/dL or less, may benefit from testosterone treatment after adequate risk and benefits counseling. For additional information, please refer to https://education.Berge[employer]'s.ScanSafe/faq/ZZC527 (This link is being provided for informational/educational purposes only.) (Note) This test was developed and its analytical performance characteristics have been determined by [facility] [employer]. It has not been cleared or approved by the FDA. This assay has been validated pursuant to the CLIA regulations and is used for clinical purposes. TESTOSTERONE, FREE 39.4 35.0-155.0 pg/mL (Note) This test was developed and its analytical performance characteristics have been determined by [facility]. It has not been cleared or approved by the FDA. This assay has been validated pursuant to the CLIA regulations and is used for clinical purposes. [facility] [address] [facility] [id number] Ricki Rodriguez MD, PhD COMPREHENSIVE METABOLIC PANE L Reviewed date:05/02/2024 08:09:55 AM Interpretation: Performing Lab:, [facility], [address], [place], [address] Ronnie Maldonado Notes/Report: FASTING:YES FASTING: YES VITAMIN D, 25-HYDROXY, LC/MS /MS Reviewed date:05/02/2024 08:09:55 AM Interpretation: Performing Lab:[facility], [address], [place], [address] Ronnie Maldonado MD Notes/Report: FASTING:YES FASTING: YES T3, FREE Reviewed date:05/02/2024 08:09:55 AM Interpretation: Performing Lab:[facility], [address], [place], [address] Ronnie Maldonado MD Notes/Report: FASTING:YES FASTING: YES DHEA SULFATE Reviewed date:05/02/2024 08:09:55 AM Interpretation: Performing Lab:[facility]in [facility]TERO, [address], [place], [address] Ronnie Maldonado MD Notes/Report: FASTING:YES FASTING: YES HEMOGLOBIN A1c Reviewed date:05/02/2024 08:09:55 AM Interpretation: Performing Lab:[facility]in [facility], [address] [place], [address] Ronnie Maldonado Notes/Report: FASTING:YES FASTING: YES INSULIN Reviewed date:05/02/2024 08:09:56 AM Interpretation: Performing Lab:Constantin OTERO, [address] [place], [address] Ronnie Maldonado MD Notes/Report: FASTING:YES FASTING: YES MAGNESIUM Reviewed date:05/02/2024 08:09:56 AM Interpretation: Performing Lab:[facility]in [facility], [address] [place], [address] Ronnie Maldonado Notes/Report: FASTING:YES FASTING: YES CBC (INCLUDES DIFF/PLT) Reviewed date:05/02/2024 08:09:56 AM Interpretation: Performing Lab:Constantin [facility], [address] [place], [address] Ronnie Maldonado Notes/Report: FASTING:YES FASTING: YES VITAMIN B12/FOLATE, SERUM PA DEMARCO Reviewed date:05/02/2024 08:09:56 AM Interpretation: Performing Lab:[facility], [address] [place], [address] Ronnie Maldonado MD Notes/Report: FASTING:YES FASTING: YES IRON AND TOTAL IRON BINDING CAPACITY Reviewed date:05/02/2024 08:09:56 AM Interpretation: Performing Lab:[facility], [address], [place], [address] Ronnie Maldonado MD Notes/Report: FASTING:YES FASTING: YES LIPID PANEL Reviewed date:05/02/2024 08:09:56 AM Interpretation: Performing Lab:[facility], [address] , [place], [address] [facility] Carol Notes/Report: FASTING:YES FASTING: YES SED RATE BY MODIFIED JOAQUIN PIERCE Reviewed date:05/02/2024 08:09:56 AM Interpretation: Performing Lab:[facility], [address] [place], [address] [facility] Notes/Report: FASTING:YES FASTING: YES T4, FREE Reviewed date:05/02/2024 08:09:56 AM Interpretation: Performing Lab:[facility], [address] [place], [address] [facility] Notes/Report: FASTING:YES FASTING: YES TSH Reviewed date:05/02/2024 08:09:56 AM Interpretation: Performing Lab:[facility], [address] [place], [address] [facility] Notes/Report: FASTING:YES FASTING: YES FSH (Not yet reviewed by pro vider) Interpretation: Performing Lab:[facility], [address], [place], [address] Ronnie Maldonado MD Notes/Report: LH (Not yet reviewed by prov ider) Interpretation: Performing Lab:[facility], [address], [place], [address] Ronnie Maldonado MD Notes/Report: PROLACTIN (Not yet reviewed by provider) Interpretation: Performing Lab:[facility], [address], [place], [address] VaneSandee Maldonado MD Notes/Report: TESTOSTERONE, FREE (DIALYSIS ) AND TOTAL,MS (Not yet reviewed by provider) Interpretation: Performing Lab:[facility], [facility], [address], [address], [place], [address] Ricki Rodriguez MD,PhD Notes/Report: TESTOSTERONE, TOTAL, MS [address] ng/dL Men with clinically significant hypogonadal symptoms and testosterone values repeatedly in the range of the 200-300 ng/dL or less, may benefit from testosterone treatment after adequate risk and benefits counseling. For additional information, please refer to https://education.Bergey's.ScanSafe/faq/OLN120 (This link is being provided for informational/educational purposes only.) (Note) This test was developed and its analytical performance characteristics have been determined by [facility] [employer]. It has not been cleared or approved by the FDA. This assay has been validated pursuant to the CLIA regulations and is used for clinical purposes. TESTOSTERONE, FREE 50.8 35.0-155.0 pg/mL (Note) This test was developed and its analytical performance characteristics have been determined by [employer]. It has not been cleared or approved by the FDA. This assay has been validated pursuant to the CLIA regulations and is used for clinical purposes. [facility] [address] [place] [id number] Ricki Rodriguez MD, PhD Reason For Referral [...] Notes Problem Obstructive sleep apnea syndrome (disorder) (53843680) Obstructive sleep apnea (adult) (pediatric) (G47.33) Active confirmed Problem Obesity (797031900) Obesity, unspecified (E66.9) Active confirmed Problem Psoriasis (8507384) Psoriasis, unspecified (L40.9) Active confirmed Problem Polyarthritis (032677797) Polyarthritis, unspecified (M13.0) Active confirmed Vital Signs Heart Rate 93 /min 04/22/2024 SPO2: 94% Blood pressure diastolic 66 mm Hg 04/22/2024 SPO 2: 94% Height 67 in 04/22/2024 SPO2: 94% Blood pressure systolic 130 mm Hg 04/22/2024 SPO2 : 94% Weight 339.4 lbs 04/22/2024 SPO2: 94% BMI 53.15 kg/m2 04/22/2024 SPO2: 94% Encounters Encounter Location Date Provider Diagnosis [employer] [facility] [address] [place] [address] 05/12/2024 Monica Chi [employer] [facility] [address] [place] [address] 04/22/2024 Monica Chi Obesity, unspecified E66.9 ; [...] sick contacts reported. Scheduled to see a power distributor next month. Await gastroenterology consultation and clearance before initiating any weight loss medications Consider further diagnostic tests based on power distributor's recommendations PsoriasisPatient has a known diagnosis of psoriasis and is currently being treated with Taltz (ixekizumab), likely at a dose of 40mg. Under the care of a sorter pricer for this condition. Continue current treatment with Taltz as prescribed Maintain follow-up with sorter pricer Cognitive SymptomsPatient reports difficulties with focus, memory, [...] procedures, referring and communicating with other health residential child care counselor, documenting clinical information in the electronic [...] Insured Coverage Start Date Coverage End Date [facility] [address] [address] [place] [address] [id number] Huey Dick Self - patient is the insured Medical (General) History Surgical History Surgery Date(Month/Year) tonsillectomy- 2009 Hospitalization History Reason Date(Month/Year) broken leg and anoids-210
--- OUTSIDE RECORDS SUMMARY | 2024-10-02 07:11 | XMS_ITS | Patient Health Record ---
Author Organization [facility] Address [id number] [place] [address] [address] [place] [address] Care Team Providers Care Anthropometrist Name Role Phone Monica Chi Primary Care Provider Allergies No Known Allergies Results Component Value Reference Range Flag Notes TESTOSTERONE, FREE (DIALYSIS ) AND TOTAL,MS Reviewed date:05/08/2024 07:55:55 PM Interpretation: Performing Lab:Z3E, [facility], [facility] [address], [address], [place], [address] Ricki Rodriguez MD,PhD Notes/Report: FASTING:YES FASTING: YES THYROID PEROXIDASE ANTIBODIE S Reviewed date:05/08/2024 07:55:55 PM Interpretation: Performing Lab:CB, [facility], [address] [place], [address] James Gomez Notes/Report: FASTING:YES FASTING: YES TSH Reviewed date:05/08/2024 07:55:55 PM Interpretation: Performing Lab:SL, [facility], [address] [place], [address] [facility] Carol Notes/Report: FASTING:YES FASTING: YES T4, FREE Reviewed date:05/08/2024 07:55:55 PM Interpretation: Performing Lab:SL, [facility], [address] [place], [address] [facility] Joel Notes/Report: FASTING:YES FASTING: YES SED RATE BY KIRK PIERCE Reviewed date:05/08/2024 07:55:55 PM Interpretation: Performing Lab:SL, [facility], [address] [place], [address] [facility] Hospitalrasheed Maldonado Notes/Report: FASTING:YES FASTING: YES SED RATE BY MODIFIED WESTERGREN 27 < OR = 15 mm/h H LIPID PANEL Reviewed date:05/08/2024 07:55:55 PM Interpretation: Performing Lab:CHRISTIANO [facility], [address] [place], [address] [facility]Steven [facility] Centerrasheed Medina Notes/Report: FASTING:YES FASTING: YES IRON AND TOTAL IRON BINDING CAPACITY Reviewed date:05/08/2024 07:55:55 PM Interpretation: Performing Lab:Constantin OTERO, [address] [place], [address] Ronnie Maldonado MD Notes/Report: FASTING:YES FASTING: YES VITAMIN B12/FOLATE, SERUM PA DEMARCO Reviewed date:05/08/2024 07:55:55 PM Interpretation: Performing Lab:Constantin OTERO, [address] [place], [address] Ronnie Maldonado MD Notes/Report: FASTING:YES FASTING: YES CBC (INCLUDES DIFF/PLT) Reviewed date:05/08/2024 07:55:55 PM Interpretation: Performing Lab:[facility]STIANO [facility], [address] [place], [address] [facility] Hospitalrasheed Medina Notes/Report: FASTING:YES FASTING: YES For adults, a [...] 10.8 7.5-12.5 fL N ABSOLUTE NEUTROPHILS 6585 5413-1923 cells/uL N ABSOLUTE LYMPHOCYTES 2333 850-3900 cells/uL N ABSOLUTE MONOCYTES 1071 200-950 cells/uL H ABSOLUTE EOSINOPHILS 71 15-500 cells/uL N ABSOLUTE BASOPHILS 40 0-200 cells/uL N NEUTROPHILS 65.2 N LYMPHOCYTES 23.1 N MONOCYTES 10.6 N EOSINOPHILS 0.7 N BASOPHILS 0.4 N MAGNESIUM Reviewed date:05/08/2024 07:55:55 PM Interpretation: Performing Lab:Constantin ALVARADO [facility], [address] [place], [address] Ronnie Maldonado Notes/Report: FASTING:YES FASTING: YES INSULIN Reviewed date:05/08/2024 07:55:55 PM Interpretation: Performing Lab:Constantin OTERO, [address] [place], [address] Ronnie Maldonado MD Notes/Report: FASTING:YES FASTING: YES HEMOGLOBIN A1c Reviewed date:05/08/2024 07:55:55 PM Interpretation: Performing Lab:[facility], [address], [place], [address] Ronnie Maldonado Notes/Report: FASTING:YES FASTING: YES DEXAMETHASONE Reviewed date:05/01/2024 02:59:59 PM Interpretation: Performing Lab:Constantin PAGE/Charisse [facility],, [address] [place], [address] Joellen Jain MD,PhD,[place] Notes/Report: FASTING:YES FASTING: YES CORTISOL, TOTAL Reviewed date:05/01/2024 02:46:50 PM Interpretation: Performing Lab:Constantin OTERO-[place], [address] [place], [address] Ronnie Maldonado MD Notes/Report: FASTING:YES FASTING: YES Reference Range: For 8 a.m.(7-9 a.m.) Specimen: 4.0-22.0 Reference Range: For 4 p.m.(3-5 p.m.) Specimen: 3.0-17.0 * Please interpret above results accordingly * CORTISOL, TOTAL 0.6 L COMPREHENSIVE METABOLIC PANE L Reviewed date:05/08/2024 07:55:55 PM Interpretation: Performing Lab:[facility], [address] , [place], [address] Ronnie Maldonado Notes/Report: FASTING:YES FASTING: YES VITAMIN D, 25-HYDROXY, LC/MS /MS Reviewed date:05/08/2024 07:55:55 PM Interpretation: Performing Lab:Constantin OTERO-[place], [address], [place], [address] Ronnie Maldonado MD Notes/Report: FASTING:YES FASTING: YES ACTH, PLASMA Reviewed date:05/08/2024 07:55:55 PM Interpretation: Performing Lab:Constantin ZEE/Charisse [facility]illySh[facility], [address], [place], [address] Keshawn Dumont M.D.,PhD Notes/Report: FASTING:YES FASTING: YES FABY IFA SCREEN W/REFL TO TIT ER AND PATTERN, IFA Reviewed date:05/08/2024 07:55:55 PM Interpretation: Performing Lab:Constantin OTERO-[place], [address], [place], [place], [address] Ronnie Maldonado MD Notes/Report: FASTING:YES FASTING: YES T3, FREE Reviewed date:05/08/2024 07:55:55 PM Interpretation: Performing Lab:Constantin OTERO-[place], [address], [place], [address] Ronnie Maldonado MD Notes/Report: FASTING:YES FASTING: YES DHEA SULFATE Reviewed date:05/08/2024 07:55:55 PM Interpretation: Performing Lab:Constantin OTERO-[place], [address], [place], [address] Ronnie Maldonado MD Notes/Report: FASTING:YES FASTING: YES CORTISOL, TOTAL (367) Reviewed date:07/21/2024 10:28:36 PM Interpretation: Performing Lab:Constantin OTERO-Ficiak[address], VioevyYG[address] Ronnie Maldonado MD Notes/Report: FASTING:YES FASTING: YES CORTISOL, TOTAL 3.3 N Reference Range: For 8 a.m.(7-9 a.m.) Specimen: 4.0-22.0 Reference Range: For 4 p.m.(3-5 p.m.) Specimen: 3.0-17.0 * Please interpret above results accordingly * DEXAMETHASONE (60619) Reviewed date:07/30/2024 08:54:16 AM Interpretation: Performing Lab:CAMILO [facility],[address] [facility] Joellen Jain MD,PhD,[place] Notes/Report: FASTING:YES FASTING: YES DEXAMETHASONE 323 Reference Ranges for Dexamethasone: Baseline: Less than 20 ng/dL 1 mg dexamethasone overnight: 180-550 ng/dL (8:00-10:00 AM) This test was developed and its analytical performance characteristics have been determined by [facility]. It has not been cleared or approved by the FDA. This assay has been validated pursuant to the CLIA regulations and is used for clinical purposes. CORTISOL, TOTAL (367) Reviewed date:05/08/2024 07:55:55 PM Interpretation: Performing Lab:SHANNA [facility]apt-Azfpzx[address], HqnhcxMV[address] Ronnie Maldonado MD Notes/Report: FASTING:YES FASTING: YES CORTISOL, TOTAL 0.6 L Reference Range: For 8 a.m.(7-9 a.m.) Specimen: 4.0-22.0 Reference Range: For 4 p.m.(3-5 p.m.) Specimen: 3.0-17.0 * Please interpret above results accordingly * DEXAMETHASONE (57904) Reviewed date:05/08/2024 07:55:55 PM Interpretation: Performing Lab:CAMILO [facility],[address], DoraDxwrhygdevBL[address] Joellen Jain MD,PhD,[place] Notes/Report: FASTING:YES FASTING: YES DEXAMETHASONE 200 Reference Ranges for Dexamethasone: Baseline: Less than 20 ng/dL 1 mg dexamethasone overnight: 180-550 ng/dL (8:00-10:00 AM) This test was developed and its analytical performance characteristics have been determined by [facility]. It has not been cleared or approved by FDA. This assay has been validated pursuant to the CLIA regulations and is used for clinical purposes. FSH (470) Reviewed date:05/17/2024 08:36:24 PM Interpretation: Performing Lab:Constantin OTERO-Ocbhol[address], CyfcpwWO[address] Ronnie Maldonado MD Notes/Report: FSH 1.9 1.4-12.8 mIU/mL N LH (615) Reviewed date:05/17/2024 08:36:24 PM Interpretation: Performing Lab:Constantin OTERO-Wxpnsx[address], ZycttfXJ[address] Ronnie Maldonado MD Notes/Report: LH 2.6 1.5-9.3 mIU/mL N PROLACTIN (746) Reviewed date:05/17/2024 08:36:24 PM Interpretation: Performing Lab:Constantin OTERO-Mhcere[address], AxeiydWS[address] Ronnie Maldonado MD Notes/Report: PROLACTIN 3.1 2.0-18.0 ng/mL N TESTOSTERONE, FREE (DIALYSIS ) AND TOTAL,MS (00514) Reviewed date:05/21/2024 04:05:12 PM Interpretation: Performing Lab:Adrianne Hövding-[address] [address], [address], [place] Ricki Rodriguez MD,PhD Notes/Report: TESTOSTERONE, TOTAL, MS 468 046-6538 ng/dL L Men with clinically significant hypogonadal symptoms and testosterone values repeatedly in the range of the 200-300 ng/dL or less, may benefit from testosterone treatment after adequate risk and benefits counseling. For additional information, please refer to https://education.[employer].PowerPlan/faq/TJP575 (This link is being provided for informational/educational purposes only.) (Note) This test was developed and its analytical performance characteristics have been determined by [employer]. It has not been cleared or approved by the FDA. This assay has been validated pursuant to the CLIA regulations and is used for clinical purposes. TESTOSTERONE, FREE 50.8 35.0-155.0 pg/mL (Note) This test was developed and its analytical performance characteristics have been determined by [employer]. It has not been cleared or approved by the FDA. This assay has been validated pursuant to the CLIA regulations and is used for clinical purposes. [facility] [address] [address],[address] [facility] [address] Ricki Rodriguez MD, PhD .COMPREHENSIVE METABOLIC NOLASCO EL (60492) CMP Reviewed date:05/10/2024 09:31:53 AM Interpretation: Performing Lab:CHRISTIANO DaptMichael [place] [address] [address] AbubrdzCL[address] VaneSteven Community Medical Centerrasheed Medina Notes/Report: FASTING:YES FASTING: YES GLUCOSE 86 65-99 [...] U/L N ALT 35 8-46 U/L N MAGNESIUM (622) Reviewed date:05/10/2024 09:31:53 AM Interpretation: Performing Lab:CHRISTIANO DaptB[place] [address] LysrrgzST[address] [facility] Healthrasheed [facility] Notes/Report: FASTING:YES FASTING: YES MAGNESIUM 2.3 1.5-2.5 mg/dL N IRON AND TOTAL IRON BINDING CAPACITY (7573) Reviewed date:05/10/2024 09:31:53 AM Interpretation: Performing Lab:SHANNA Dapt-[address], BjlsdeZZ[address] Ronnie Maldonado MD Notes/Report: FASTING:YES FASTING: YES IRON, TOTAL 60 27-164 mcg/dL N IRON BINDING CAPACITY 382 271-448 mc g/dL (calc) N % SATURATION 16 16-48 % (calc) N .LIPID PANEL, STANDARD (7600 ) Reviewed date:05/10/2024 09:31:53 AM Interpretation: Performing Lab:CHRISTIANO [place]aptMichael [address] [address] [address] JzvapyzRT[address] Ronnie Maldonado Notes/Report: FASTING:YES FASTING: YES CHOLESTEROL, TOTAL 200 <170 mg/dL H HDL CHOLESTEROL 48 >45 mg/dL N TRIGLYCERIDES 102 <90 mg/dL H LDL-CHOLESTEROL 132 <110 mg/dL (calc) H LDL-C is now calculated using the Korina calculation, which is a validated novel method providing better accuracy than the Friedewald equation in the estimation of LDL-C. Asif SS et al. DEON. 2013;310(19): 2383-5305 (http://education.Virtual Computer/faq/ZWO545) CHOL/HDLC RATIO 4.2 <5.0 (calc) N NON HDL CHOLESTEROL 152 <120 mg/dL (calc) H For patients with diabetes plus 1 major ASCVD risk factor, treating to a non-HDL-C goal of <100 mg/dL (LDL-C of <70 mg/dL) is considered a therapeutic option. .CBC (INCLUDES DIFF/PLT) (63 99) Reviewed date:05/10/2024 09:31:53 AM Interpretation: Performing Lab:CHRISTIANO DaptB[place] [id number] HjxnhkyAF[address] VaneSandee Maldonado Notes/Report: FASTING:YES FASTING: YES WHITE BLOOD CELL [...] 10.8 7.5-12.5 fL N ABSOLUTE NEUTROPHILS 6585 0291-0013 cells/uL N ABSOLUTE LYMPHOCYTES 2333 850-3900 cells/uL N ABSOLUTE MONOCYTES 1071 200-950 cells/uL H ABSOLUTE EOSINOPHILS 71 15-500 cells/uL N ABSOLUTE BASOPHILS 40 0-200 cells/uL N NEUTROPHILS 65.2 N LYMPHOCYTES 23.1 N MONOCYTES 10.6 N EOSINOPHILS 0.7 N BASOPHILS 0.4 N SED RATE BY MODIFIED JOAQUIN PIERCE (809) Reviewed date:05/10/2024 09:31:53 AM Interpretation: Performing Lab:CHRISTIANO [facility] CenterQknrl[address] Ronnie Maldonado Notes/Report: FASTING:YES FASTING: YES SED RATE BY MODIFIED GABRIELLE 27 < OR = 15 mm/h H THYROID PEROXIDASE ANTIBODIE S (5081) Reviewed date:05/10/2024 09:31:53 AM Interpretation: Performing Lab:CATHY [facility]apt-Alon [address], [place] FsemCW[address] James Gomez Notes/Report: FASTING:YES FASTING: YES THYROID PEROXIDASE ANTIBODIES 1 <9 IU/mL FABY SCREEN, IFA, W/REFL TITE R AND PATTERN (249) Reviewed date:05/10/2024 09:31:53 AM Interpretation: Performing Lab:SHANNA [facility]apt-Ricbxe[address], DhukbtYD[address] Ronnie Maldonado MD Notes/Report: FASTING:YES FASTING: YES [...] Negative International Consensus on FABY Patterns (https://doi.org/10.1515/c zbj-7415-5656) For additional information, please refer to http://education.Avnera/faq/SQE381 (This link is being provided for informational/ educational purposes only.) .HEMOGLOBIN A1c (496) Reviewed date:05/10/2024 09:31:53 AM Interpretation: Performing Lab:CHRISTIANO [facility]aptSaint [facility] Health CenterPadqe[address] [facility] StoughtonEkhqkmjHS[address] Ronnie Maldonado Notes/Report: FASTING:YES FASTING: YES HEMOGLOBIN [...] diagnosis of diabetes in children. According to [place] Diabetes Association (ADA) guidelines, hemoglobin A1c <7.0% represents optimal control in non- diabetic patients. Different metrics may apply to specific patient populations. Standards of Medical Care in Diabetes(ADA). INSULIN (561) Reviewed date:05/10/2024 09:31:53 AM Interpretation: Performing Lab:Constantin OTERO-Pmbcst[address], VdyymoXJ[address] Ronnie Maldonado MD Notes/Report: FASTING:YES FASTING: YES INSULIN 45.8 H Reference Range < or = 18.4 Risk: Optimal < or = 18.4 Moderate NA High >18.4 Adult cardiovascular event risk category cut points (optimal, moderate, high) are based on Insulin Reference Interval studies performed at [facility] in 2021. DHEA SULFATE (402) Reviewed date:05/10/2024 09:31:53 AM Interpretation: Performing Lab:SHANNA Wirescan Navid-Dhgzqb[address], DysggoJJ[address] Ronnie Maldonado MD Notes/Report: FASTING:YES FASTING: YES DHEA SULFATE 234 20-480 mcg/dL N VITAMIN B12/FOLATE, SERUM PA DEMARCO (4954) Reviewed date:05/10/2024 09:31:53 AM Interpretation: Performing Lab:Constantin OTERO [place] Ronnie Maldonado MD Notes/Report: FASTING:YES FASTING: YES VITAMIN B12 847 834-6658 pg/mL N Please Note: Although the reference [...] Range Low: <3.4 Borderline: 3.4-5.4 Normal: >5.4 T4, FREE (866) Reviewed date:05/10/2024 09:31:53 AM Interpretation: Performing Lab:Constantin ALVARADOMichael [address] [address] [address] Notes/Report: FASTING:YES FASTING: YES T4, FREE 1.4 0.8-1.4 ng/dL N TSH (899) Reviewed date:05/10/2024 09:31:53 AM Interpretation: Performing Lab:Constantin [facility] Erkjx[address] Notes/Report: FASTING:YES FASTING: YES TSH 3.41 0.50-4.30 mIU/L N T3, FREE (39845) Reviewed date:05/10/2024 09:31:53 AM Interpretation: Performing Lab:Constantin OTEROa1Heladio RibeiroaKS[address] Ronnie Maldonado MD Notes/Report: FASTING:YES FASTING: YES T3, FREE 3.5 3.0-4.7 pg/mL N .VITAMIN D,25-OH,TOTAL,IA (1 1475) Reviewed date:05/10/2024 09:31:53 AM Interpretation: Performing Lab:Constantin OTERO [place] Ronnie Maldonado MD Notes/Report: FASTING:YES FASTING: YES [...] D, (D2,D3), LC/MS/MS is recommended: order code 50289 (patients >2yrs). See Note 1 Note 1 For additional information, please refer to http://[employer].Avnera/faq/IDB489 (This link is being provided for informational/ educational purposes only.) TESTOSTERONE, FREE (DIALYSIS ) AND TOTAL,MS (00586) Reviewed date:05/10/2024 09:31:53 AM Interpretation: Performing Lab:Adrianne [facility]-GdxWeltft[address] [address], [address] Dever State SchoolDlqtosuknjLC[address] Ricki Rodriguez MD,PhD Notes/Report: FASTING:YES FASTING: YES TESTOSTERONE, TOTAL, MS 715 120-2372 ng/dL L Men with clinically significant hypogonadal symptoms and testosterone values repeatedly in the range of the 200-300 ng/dL or less, may benefit from testosterone treatment after adequate risk and benefits counseling. For additional information, please refer to https://[employer]/faq/JUF207 (This link is being provided for informational/educational purposes only.) (Note) This test was developed and its analytical performance characteristics have been determined by [employer]. It has not been cleared or approved by the FDA. This assay has been validated pursuant to the CLIA regulations and is used for clinical purposes. TESTOSTERONE, FREE 39.4 35.0-155.0 pg/mL (Note) This test was developed and its analytical performance characteristics have been determined by [employer]. It has not been cleared or approved by the FDA. This assay has been validated pursuant to the CLIA regulations and is used for clinical purposes. F [facility] [address] [facility] [address] [facility] [address] Ricki Rodriguez MD, PhD ACTH, PLASMA (211) Reviewed date:05/10/2024 09:31:53 AM Interpretation: Performing Lab:Constantin ZEE/Charisse Cabral FS[address], FkcwtcoapAJ[address] Keshawn Dumont M.D.,PhD Notes/Report: FASTING:YES FASTING: YES ACTH, PLASMA 23 6-50 pg/mL Reference range applies only to specimens collected between 7am-10am. Reason For Referral No Information Medications Medication [...] Risk Notes Problem Disorder of pituitary gland (485646664) Disorder of pituitary gland, unspecified (E23.7) Active confirmed Problem Disorder of adrenal gland (62740628) Disorder of adrenal gland, unspecified (E27.9) Active confirmed Problem Testicular dysfunction (00649449) Testicular dysfunction, unspecified (E29.9) Active confirmed Problem Obesity (074209409) Obesity, unspecified (E66.9) Active confirmed Problem Obstructive sleep apnea syndrome (disorder) (09759187) Obstructive sleep apnea (adult) (pediatric) (G47.33) Active confirmed Problem Psoriasis (2166427) Psoriasis, unspecified (L40.9) Active confirmed Problem Polyarthritis (327476298) Polyarthritis, unspecified (M13.0) Active confirmed Problem Insulin resistance (607897396) Insulin resistance (E88.819) Active confirmed Problem Vitamin D deficiency (82268310) Vitamin D deficiency (E55.9) Active confirmed Vital Signs Heart Rate 84 /min 09/29/2024 Height-cm 170.18 cm 09/29/2024 Oximetry 95 % 09/29/2024 Blood pressure diastolic 78 mm Hg 09/29/2024 Weight-kg 136.53 kg 09/29/2024 BMI Percentile 99.9 % 09/29/2024 Height 67 in 09/29/2024 Blood pressure systolic 128 mm Hg 09/29/2024 Weight 301.0 lbs 09/29/2024 BMI 47.14 kg/m2 09/29/2024 Encounters Encounter Location Date Provider Diagnosis [facility] Dr. Chi [address] [place] [address] 04/22/2024 Monica Alno Obesity, unspecified E66.9 ; Abnormal weight gain R63.5 ; Other fatigue R53.83 ; Obstructive sleep apnea (adult) (pediatric) G47.33 ; Psoriasis, unspecified L40.9 and Polyarthritis, unspecified M13.[address] Chi [address] [place] [address] 05/12/2024 Monicaxavier Chi Obesity, unspecified E66.9 ; Vitamin D deficiency E55.9 ; Testicular dysfunction, unspecified E29.9 ; Other fatigue R53.83 ; Insulin resistance E88.819 and Dietary counseling and surveillance Z71.[address] Chi [address] [place] [address] 06/10/2024 Monica Alon Obesity, unspecified E66.9 ; Testicular dysfunction, unspecified E29.9 and Dietary counseling and surveillance Z71.[address] Chi [address] [place] [address] 07/24/2024 Monica Chi Testicular dysfuncti on, unspecified E29.9 ; Insulin resistance E88.819 ; Obesity, unspecified E66.9 ; Hypercortisolism E24.9 ; Disorder of adrenal gland, unspecified E27.9 ; Disorder of pituitary gland, unspecified E23.7 and Dietary counseling and surveillance Z71.[address] Chi [address] [place] [address] 09/29/2024 Monica Chi Obesity, unspecified E66.9 ; Obstructive sleep apnea (adult) (pediatric) G47.33 ; Insulin resistance E88.819 and Dietary counseling and surveillance Z71.[address] [address] 08/21/2024 Monica Chi [address] [address] 09/09/2024 Monica Chi Assessments Encounter Date Diagnosis (ICD Code) Assessment Notes Treatment Notes Treatment Clinical Notes Section Notes 04/22/2024 Obesity, unspecified (ICD-10 - E66.9) 04/22/2024 Abnormal weight gain (ICD-10 - R63.5) 05/12/2024 Obesity, unspecified (ICD-10 - E66.9) 05/12/2024 Vitamin D deficiency (ICD-10 - E55.9) 06/10/2024 Obesity, unspecified (ICD-10 - E66.9) 07/24/2024 Testicular dysfunction, unspecified (ICD-10 - E29.9) 07/24/2024 Insulin resistance (ICD-10 - E88.819) 09/29/2024 Obesity, unspecified (ICD-10 - E66.9) 09/29/2024 Obstructive sleep apnea (adult) (pediatric) (ICD-10 - G47.33) 07/24/2024 Obesity, unspecified (ICD-10 - E66.9) 06/10/2024 [...] activity weekly. 07/24/2024 Hypercortisolism (ICD-10 - E24.9) 09/29/2024 Insulin resistance (ICD-10 - E88.819) 07/24/2024 Disorder of adrenal gland, unspecified (ICD-10 - E27.9) 09/29/2024 Dietary counseling and surveillance (ICD-10 - Z71.3) Spent 15 minutes preventative counseling patient on dietary recommendations and changes in setting of hyperglycemia- need to restrict refined sugars and processed foods and incorporate up to 150 minutes of moderate level activity weekly. 05/12/2024 Insulin resistance (ICD-10 - E88.819) 04/22/2024 [...] sick contacts reported. Scheduled to see a consulting intern next month. Await gastroenterology consultation and clearance before initiating any weight loss medications Consider further diagnostic tests based on consulting intern's recommendations PsoriasisPatient has a known diagnosis of psoriasis and is currently being treated with Taltz (ixekizumab), likely at a dose of 40mg. Under the care of a living coach for this condition. Continue current treatment with Taltz as prescribed Maintain follow-up with living coach Cognitive SymptomsPatient reports difficulties with focus, memory, [...] procedures, referring and communicating with other health home care attendant, documenting clinical information in the electronic or [...] (tirzepatide). DyslipidemiaLipid panel shows borderline elevated levels.Recommend xtux-snp-wlbzilk fish oil supplementation.Focus on weight loss and [...] procedures, referring and communicating with other health home care attendant, documenting clinical information in the electronic or [...] procedures, referring and communicating with other health home care attendant, documenting clinical information in the electronic or [...] Encourage consumption of cruciferous vegetables (broccoli, cauliflower, [place] sprouts)- Recommend use of real butter instead [...] procedures, referring and communicating with other health home care attendant, documenting clinical information in the electronic or other health record, independently interpreting results and communicating results to the patient/family/caregiver and care coordinating patient plan. Patient alert and oriented x 4 and aware of discussion noted above and in agreeance to plan in management of hypercortisolism, obesity, insulin resistance and need to rule out pituitary or adrenal source of hypercortisolism. 09/29/2024 Other Assessment and Plan: 1. Hypercortisolism- History of elevated cortisol levels, potentially related to obstructive sleep apnea- Lost approximately 48 pounds with good response to low dose medication- Previous CT scan showed no source of cortisol excess- Improved breathing and activity levels noted- Continue current medication at 2.5 mg- Monitor bowel movements, ensuring occurrence every 2-3 days- Repeat dexamethasone suppression test after additional 30-40 pounds of weight loss or when patient reaches around 250 lbs- Target weight goal: as close to 200 lbs as possible- Reassess treatment plan if weight loss plateaus or cortisol levels do not normalize as expected 2. Obesity with successful weight loss- Achieved significant weight loss of 48 pounds- Improvements noted in overall health, including potential resolution of sleep apnea symptoms- Patient reports feeling good with improvements in breathing and activity levels- Continue current weight loss regimen with combined tirzepatide 5 mg/B12 weekly- Encourage ongoing weight loss efforts with a goal of reaching close to 200 lbs- Monitor progress and reassess cortisol levels and overall health status with continued weight loss Spent 25 minutes preparing to see the patient (ex review of tests/chart), obtaining and / or reviewing separately obtained history, performing a medically appropriate examination and/or evaluation, counseling and educating the patient/family/caregiver, ordering medications, tests, or procedures, referring and communicating with other health home care attendant, documenting clinical information in the electronic or other health record, independently interpreting results and communicating results to the patient/family/caregiver and care coordinating patient plan. Patient alert and oriented x 4 and aware of discussion noted above and in agreeance to plan in management of obesity/insulin resistance and MICHELET. Plan Of Treatment Pending Test Test Name Order Date *CT ABDOMEN W/O CONTRAST 43024 5 *MRI BRAIN W/O AND W/ CONTRAST [SELLATUR ISICA] 30047 07/24/2024 Next Appt Details Provider Name:Monica Chi, 03:20:00 PM, [address] [place] [address], [phone], Insurance Providers Payer Name Payer Address Payer Phone Subscriber Number Group Number Insured Name Patient Relationship to Insured Coverage Start Date Coverage End Date [facility] [address] [place] [address] [phone] [id number] Huey Dick Self - patient is the insured Medical (General) History Medical History History ICD Code obesity hypogonadism Surgical History Surgery Date(Month/Year) tonsillectomy- 2010 Hospitalization History Reason Date(Month/Year) broken leg and anoids-210
--- OUTSIDE RECORDS SUMMARY | 2024-10-02 07:11 | XMS_ITS ---
Author Organization [facility] Address [address] [place] [id number] Care Team Providers Care Catering Truck Driver Name Role Phone Monica Chi Primary Care Provider [phone] REASON FOR VISIT weight loss f/u Encounters Encounter Location Date Provider Diagnosis [facility]MO Dr. Chi [address] [place] [phone] 07/15/2024 Monica Chi Plan Of Treatment Next Appt Details Provider Name:Monica Chi, 03:20:00 PM, [address] [place] [address], [phone], Progress Notes * Huey COHENDOB: 5 (19 yo M)Acc No.[id number]:07/15/2024 Progress Notes Patient: Huey Brink Provider: Clover Chi MD :2005 A ge:18 Y S ex:Male Date:07/15/2024 Address:[facility] [facility] Subjective: * Chief Complaints: * W eight loss f/u * Electronic signature of Leonard Chi MD on 10/02/2024 at 07:11 AM CDT Sign off status: Pending * Provider: Clover Chi MD Date: 07/15/2024 Generated for Emmie carlson/Neris/Eliazarsmitting on: 10/02/2024 07:11 AM CDT
--- OUTSIDE RECORDS SUMMARY | 2024-10-02 07:11 | XMS_ITS ---
Author Organization [facility] Address [address] [place] [address] Care Team Providers Care Wool Hat Flanger Name Role Phone Monica Chi Primary Care Provider REASON FOR VISIT est. care karen Encounters Encounter Location Date Provider Diagnosis [facility], [facility] - Monica Chi [address] [place] [address] 04/15/2024 Monica Chi Plan Of Treatment No Information Progress Notes * Huey COHENDOB: 5 (19 yo M)Acc No.[id number]:04/15/2024 Progress Notes Patient: Huey PECK Provider: Clover Chi MD :2005 A ge:18 Y S ex:Male Date:04/15/2024 Address:[address] [facility] Subjective: * Chief Complaints: * 1 . [...] Pending * Provider: Clover Chi MD Date: 04/15/2024 Generated for Emmie carlson/Neris/eTransmitting on: 0 10/02/2024 07:11 AM CDT History and Physical Notes * HPI (History of Present Illness) Category Sub-Category Detail Notes Category Not es Interval Hx 18 yo male come s in to establish care in management of
--- OUTSIDE RECORDS SUMMARY | 2024-10-02 07:11 | XMS_ITS | Referral Summary ---
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
--- OUTSIDE RECORDS SUMMARY | 2024-10-02 07:11 | XMS_ITS | Clinical Summary ---
Author Organization [facility] Address [address] [place] [address] Care Team Providers Care Acetaldehyde Converter Operator Name Role Phone Rahel Aiken MD Primary Care Provider [phone] Source Comments [facility],non-owned Affiliates and Associated Physician Practices is amultiple site organization consisting of ambulatory clinics and hospital sitesin [place], [place], [place] and [place]. This disclosure is being madepursuant to the Care Everywhere program and may not contain all information available regarding this patient. Last updated 17.[facility] Allergies No known active allergies Medications [...] (08/01/2017): 07/05/2017: PA for Stelara denied by [facility]. 07/25/2017: Verbal PA for Otezla submitted to [facility]. 07/28/2017: Otezla denied d/t pt age. 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
--- OUTSIDE RECORDS SUMMARY | 2024-10-02 07:11 | XMS_ITS ---
Author Organization [facility] Address [address] [place] [address] Care Team Providers Care Retail Salesman Name Role Phone Monica Chi Primary Care Provider REASON FOR VISIT Lab FU Encounters Encounter Location Date Provider Diagnosis [facility], [facility] - Monica Chi [address] [place] [address] 05/12/2024 Monica Chi Plan Of Treatment No Information Progress Notes * Huey COHENDOB: 5 (19 yo M)Acc No.[id number]:05/12/2024 Progress Notes Patient: Huey PECK Provider: Clover Chi MD :2005 A ge:18 Y S ex:Male Date:05/12/2024 Address:[address] [facility] Subjective: * Chief Complaints: * 1 . Lab FU. * Medical History: Objective: * Vitals: Assessment: Plan: * Treatment: * Billing Information: * Visit Code: * Procedure Codes: * Electronic signature of Leonard Chi MD on 10/02/2024 at 07:11 AM CDT Sign off status: Pending * Provider: Clover Chi MD Date: 0 05/12/2024 Generated for Emmie carlson/Neris/eTcristoferitting on: 10/02/2024 07:11 AM CDT
--- OUTSIDE RECORDS SUMMARY | 2024-10-02 07:12 | XMS_ITS | Clinical Summary ---
Author Organization [facility] Address [address] [place] [address] Care Team Providers Care Wood Cutter Name Role Phone Rahel Aiken MD Primary Care Provider [phone] Allergies No known active allergies Medications albuterol [...] on file Legal Sex Male 4:[address] Gender Identity Not on file Sexual Orientation [...] Insurance [employer] COVENTRY HMO/POS [employer] COVENTRY HMO/POS [facility] CHOICE PLUS [facility] HMO/PPO Address: [address] [address] [place] [address] [facility] PPO Care Teams Wood Cutter Relationship Specialty Start Date End Date Rahel Aiken MD [address] [place] [address] PCP - General 11/15/16
== END 2024-10-02 07:09 | disposition home or self-care (01) ==
PROVIDERS: PCP Student in an Organized Health Care Education/Training Program; Visit Provider Internal Medicine Endocrinology, Diabetes & Metabolism
DX: E23.7 Disorder of pituitary gland, unspecified (principal)
CPT/HCPCS: 70553; A9577

== ENCOUNTER 2024-10-22 13:46 | Emergency (ER) | payer OTHER, SELFPAY | END 2024-10-22 13:58 | disposition left against medical advice (07) | LOC: EXPGOSH 13:51 | PROVIDERS: Emergency Provider Nurse Practitioner Family; PCP Student in an Organized Health Care Education/Training Program | DX: Z53.21 Procedure and treatment not carried out due to patient leaving prior to being seen by health care provider (principal) | CPT/HCPCS: 99199 ==

== ENCOUNTER 2024-12-24 18:17 | Emergency (ER) | payer OTHER, SELFPAY ==
[2024-12-24 18:31] VITALS: BP 138/68; PULSE 95; RESP 18; TEMP 36.8; O2SAT 96
[2024-12-24 18:57] LABS: EDCOVIDSCREEN Positive (Negative); EDINFLUASCREEN Negative (Negative); EDINFLUBSCREEN Negative (Negative); EDSTREPNEGPOS1 Negative (Negative)
--- NOTE | 2024-12-24 19:27 | ED.URI ---
HPI - URI/Sore Throat General Chief Complaint: Upper Respiratory Infection Stated Complaint: sore throat/sinus congestion/vomiting Time Seen by Provider: 12/24/24 19:00 Source: patient and RN notes reviewed Mode of arrival: ambulatory Limitations: no limitations History of Present Illness HPI Narrative: 19-year-old male presents Express Care complaining of upper respiratory symptoms for 3 days. Patient reports cough, congestion, runny nose, sore throat, body aches, nausea, vomiting. Patient said he vomited 3 times a day no longer feels nauseous, he states he has been bleeding drink since. Patient has any earache, bloody stools, vomiting blood, diarrhea, abdominal pain, chest pain, difficulty breathing, shortness of breath, fevers, chills, or any other symptoms. Patient has been taking Tylenol and ibuprofen to help with the pain. Patient denies any significant past medical problems. Related Data Home Medications ?Medication ?Instructions ?Recorded ?Confirmed ?Last Taken ?Type citalopram 40 mg tablet 40 mg PO DAILY 03/01/21 03/28/24 03/01/21 History ixekizumab 80 mg/mL subcutaneous 80 mg subcut MONTHLY 12/14/22 03/28/24 Unknown History auto-injector (Taltz Autoinjector) aripiprazole 10 mg tablet mg 07/16/24 Unknown History bupropion HCl 300 mg 24 hr tablet, mg PO 07/16/24 Unknown History extended release ergocalciferol (vitamin D2) 1,250 07/16/24 Unknown History mcg (50,000 unit) capsule pantoprazole 40 mg tablet,delayed mg PO 07/16/24 Unknown History release Allergies Allergy/AdvReac Type Severity Reaction Status Date / Time No Known Allergies Allergy Verified 12/24/24 18:35 Review of Systems Review of Systems: CONSTITUTIONAL: Denies fever, chills, or sweats. Positive body aches. EYES: Denies visual changes, redness, or discharge. ENT: Positive for rhinorrhea, congestion, sore throat. Negative for otalgia. CARDIOVASCULAR: Denies chest pain, palpitations, or edema. RESPIRATORY: Positive for cough. Negative for wheezing or Dyspnea. GASTROINTESTINAL: Denies abdominal pain, or diarrhea. Positive for nausea and vomiting. GENITOURINARY: Denies dysuria or hematuria. SKIN: Denies rash or itching. MUSCULOSKELETAL: Denies back pain, joint pain, or myalgia. NEUROLOGIC: Denies headache, numbness, or weakness. PSYCHIATRIC: Denies anxiety or depression. All other systems reviewed are negative, except as documented in HPI. [facility] Past Medical History Medical History Psoriasis Asthma Surgical History Surgical History Hx of tonsillectomy Family History Family History Mother Asthma Sibling Asthma Social History Social History Second hand tobacco smoke exposure: No Comments At the time of my signature, I reviewed and agree with the nursing past medical, surgical, social, and family history. There is no relevant family history pertinent to the patient complaint. Exam Narrative: GENERAL: This is a well-nourished, well-developed adult, in no apparent distress. They are non ill-appearing, nontoxic appearing. Patient is morbidly obese. Physical exam is limited due to large body habitus. HEAD: normocephalic, atraumatic. EYES: Sclera clear/white. Conjunctiva normal. Vision is grossly intact. Extraocular movements intact EARS: External ears normal, auditory canals clear and without drainage, TMs normal without perforation. Hearing grossly intact. NOSE: External nose normal with no obvious nasal discharge, nasal turbinates erythematous, no rhinorrhea. THROAT: Mucous membranes moist, posterior pharynx erythematous without exudate. Uvula midline. Postnasal drip present. NECK: Neck supple, non-tender with mild cervical lymphadenopathy, no masses or thyromegaly. CARDIOVASCULAR: Regular rate and rhythm without murmurs, gallops, or rubs. RESPIRATORY: Clear to auscultation. Breath sounds equal bilaterally. No wheezes, rales, or rhonchi. Respiratory rate normal, respiratory effort nonlabored, no respiratory distress GASTROINTESTINAL: Abdomen soft,, large, non-tender, nondistended. Bowel sounds are active. No hepato-splenomegaly, or palpable masses. No guarding or rigidity. SKIN: warm, Dry, intact with no suspicious lesions or rash, good texture and turgor. NEURO: awake, alert, and oriented to person, place and time. There were no obvious focal neurologic abnormalities. EXTREMITIES: No joint tenderness, effusion, or edema noted. BACK: Nontender without deformity. No CVA tenderness. Course Course Emergency Course: Portions of this record may have been created with voice recognition software Level of Care: Express Care Visit Vital Signs Vital signs: Vital Signs Temperature 98.2 F 12/24/24 18:31 Pulse Rate 95 12/24/24 18:31 Respiratory Rate 18 12/24/24 18:31 Blood Pressure 138/68 12/24/24 18:31 Pulse Oximetry 96 12/24/24 18:31 Oxygen Delivery Room Air 12/24/24 18:31 Temperature 98.2 F 12/24/24 18:31 Pulse Rate 95 12/24/24 18:31 Respiratory Rate 18 12/24/24 18:31 Blood Pressure 138/68 12/24/24 18:31 Pulse Oximetry 96 12/24/24 18:31 Oxygen Delivery Room Air 12/24/24 18:31 Reviewed MDM - URI/Sore Throat MDM Narrative Medical decision making narrative: Rapid COVID is positive. Rapid strep and flu negative. Throat culture is pending. Patient's symptoms consistent with COVID infection. Patient did endorse nausea and vomiting however he said that is subsided he is pale the keep things down since, stating he has a drink since she vomited today. No peritoneal findings, no abdominal tenderness. Patient does not appear clinically dehydrated. patient's mucous membranes are moist. Patient's vital signs hemodynamically stable, afebrile, no tachycardia. Patient is appropriate for outpatient follow-up and management. Recommend supportive therapy. Patient requested albuterol inhaler stating when he gets upper respiratory infections he sometimes becomes wheeze your for of breath. She denies any history of asthma. Prescription of albuterol sent to pharmacy. Also prescribe patient Zofran as needed for nausea and vomiting. Discussed physical exam findings. Advised supportive measures and signs/symptoms to go to the ER. Pt is appropriate for outpt treatment and f/u. Differential Diagnosis Differential diagnosis: Likely upper respiratory infection, viral infection, influenza and other (COVID, gastroenteritis) Lab Data Attestation: I reviewed the patient's lab results. Labs: Lab Results 12/24/24 Range/Units 18:25 POC Influenza A Ag Negative (Negative) POC Influenza B Ag Negative (Negative) POC SARS CoV-2 Ag Positive (Negative) POC Grp A Strep Screen Negative (Negative) Critical Care Time Critical Care Time Critical Care Time: No Discharge Plan Discharge Clinical Impression: COVID Patient Disposition: Home Condition: Stable Instructions: Antibiotic Form, COVID-19 (Coronavirus Disease 2019) (ED), How to Recover from COVID-19 at Home (ED) Additional Instructions: Your rapid strep swab was negative today at [facility]. You will be notified in a few days if the culture comes back positive for strep, and appropriate antibiotics will be called in for you at that time. You Tested positive for COVID today. Your rapid flu is negative. COVID may last usually 7-10 days sometimes a persist up to 2 weeks. Normally self-limiting condition will resolve on its own. It is a viral illness therefore antibiotics will not work on it. Rest and drink plenty of fluids. Use the Zofran as needed for nausea and vomiting. May use albuterol inhaler as needed for wheezing or shortness of breath. Follow-up with your PCP in 5-7 days for re-evaluation. If you develop chest pain, difficulty breathing, shortness of breath, unable to catch her breath, worsening nausea vomiting, fevers, abdominal pain, or any serious concerns please go to the ER immediately. Patient Language: Andorran Prescriptions: New albuterol sulfate [Ventolin HFA] 90 mcg/actuation HFA aerosol inhaler 2 puff inhalation QID PRN (Reason: shortness of breath or wheezing) Qty: 8.5 0RF ondansetron 4 mg tablet,disintegrating 4 mg PO Q8H PRN (Reason: nausea and vomiting) Qty: 12 0RF No Action Taltz Autoinjector 80 mg/mL auto-injector 80 mg SUBCUT MONTHLY citalopram 40 mg tablet 40 mg PO DAILY pantoprazole 40 mg tablet,delayed release (DR/EC) PO ergocalciferol (vitamin D2) 1,250 mcg (50,000 unit) capsule aripiprazole 10 mg tablet bupropion HCl 300 mg tablet extended release 24 hr PO Follow-up/Referrals: Denis,DO Luis [Primary Care Provider] Stand Alone Forms: Work/School Release IP Time of Disposition: 19:17
== END 2024-12-24 19:25 | disposition home or self-care (01) ==
PROVIDERS: PCP Student in an Organized Health Care Education/Training Program
DX: U07.1 COVID-19 (principal); J45.909 Unspecified asthma, uncomplicated; L40.9 Psoriasis, unspecified
CPT/HCPCS: 87081; 87426; 87804; 87880; 99213; G0463

== ENCOUNTER 2025-02-21 11:07 | Emergency (ER) | payer OTHER, SELFPAY ==
[2025-02-21 11:31] VITALS: BP 121/60; PULSE 82; RESP 16; TEMP 36.6; O2SAT 100
--- NOTE | 2025-02-21 11:55 | ED_ITS ---
HPI - General Adult General Chief complaint: Nausea/Vomiting/Diarrhea Stated complaint: Food Poisoning Time Seen by Provider: 02/21/25 11:55 Source: patient Mode of arrival: ambulatory Limitations: no limitations History of Present Illness HPI narrative: 19 male patient presents to [facility] with complaints of vomiting and diarrhea for the past 2 days. Patient states he suspects possible food poisoning due to that the symptoms started after he drank a yogurt drink. Patient states that was not but did taste a little funny. Patient states couple hours after that he started having vomiting diarrhea. Denies any fevers but states he has had some body aches. Denies any congestion or coughing. Patient states he does have Zofran at home but did not take it. Patient states that he did urinate here in the clinic today but prior to that last time he urinated was about 5:00 a.m. this morning. Patient states he vomited last bout 5:00 a.m. this morning as well. Related Data Home Medications ?Medication ?Instructions ?Recorded ?Confirmed ?Last Taken ?Type citalopram 40 mg tablet 40 mg PO DAILY 03/01/2103/0303/01/21 History ixekizumab 80 mg/mL subcutaneous 80 mg subcut MONTHLY 12/14/22 03/28/24 Unknown History auto-injector (Taltz Autoinjector) aripiprazole 10 mg tablet mg 07/16/24 Unknown History bupropion HCl 300 mg 24 hr tablet, mg PO 07/16/24 Unk nown History extended release ergocalciferol (vitamin D2) 1,250 07/16/24 Unknown H istory mcg (50,000 unit) capsule pantoprazole 40 mg tablet,delayed mg PO 07/16/24 Unkn own History release eplerenone 25 mg tablet mg 02/21/25 Unknown History Allergies Allergy/AdvReac Type Severity Reaction Status Date / Time No Known Allergies Allergy Verified 02/21/25 11:14 Review of Systems Review of Systems: CONSTITUTIONAL: Denies fever, chills, or sweats. Positive body aches EYES: Denies visual changes, redness, or discharge. ENT: Denies rhinorrhea, congestion, sore throat, or otalgia. CARDIOVASCULAR: Denies chest pain, palpitations, or edema. RESPIRATORY: Denies cough or dyspnea. GASTROINTESTINAL: Denies abdominal pain, positive nausea, vomiting, and diarrhea. GENITOURINARY: Denies dysuria or hematuria. SKIN: Denies rash or itching. MUSCULOSKELETAL: Denies back pain, joint pain, or myalgia. NEUROLOGIC: Denies headache, numbness, or weakness. PSYCHIATRIC: Denies anxiety or depression. [facility] Past Medical History Medical History (Updated 02/21/25 @ 12:37 by Karla Renae APRN) Psoriasis Asthma Surgical History Surgical History (Updated 02/21/25 @ 11:57 by Karla Renae APRN) Hx of adenoidectomy Hx of tonsillectomy Family History Family History Mother Asthma Sibling Asthma Social History Social History Second hand tobacco smoke exposure: No Comments At the time of my signature I agree with nursing past medical history, surgical, social, and family history. There is no relevant family history pertinent to the presenting complaint. Exam Narrative: GENERAL: Well-appearing, well-nourished, and in no acute distress. HEAD: Normocephalic, atraumatic. EYES: PERRLA and EOMI. ENT: Nares clear, no rhinorrhea or epistaxis. Mucous membranes moist. NECK: Supple. No lymphadenopathy CHEST: Clear to auscultation. No respiratory distress. HEART: Regular rate and rhythm. No murmur heard. Normal peripheral pulses. ABDOMEN: Soft, flat, nondistended. No guarding, rebound tenderness, or rigid. No pulsatilla masses. Bowel sounds present in all four quadrants. No organomegaly. Negative Thomson?s sign. No periumbicial tenderness. No Supra public tenderness or distension. Good femoral pulses bilaterally. No hernia noted. No scars or surface trauma. EXTREMITIES: Normal range of motion. No edema. SKIN: Warm, dry, no rash. NEURO: No focal deficits. Alert and oriented x3. Course Course Level of Care: Express Care Visit Vital Signs Vital signs: Vital Signs Temperature 36.6 C 02/21/25 11:31 Pulse Rate 82 02/21/25 11:31 Respiratory Rate 16 02/21/25 11:31 Blood Pressure 121/60 02/21/25 11:31 Pulse Oximetry 100 02/21/25 11:31 Oxygen Delivery Room Air 02/21/25 11:31 Temperature 36.6 C 02/21/25 11:31 Pulse Rate 82 02/21/25 11:31 Respiratory Rate 16 02/21/25 11:31 Blood Pressure 121/60 02/21/25 11:31 Pulse Oximetry 100 02/21/25 11:31 Oxygen Delivery Room Air 02/21/25 11:31 Vital signs reviewed. Medical Decision Making MDM Narrative Medical decision making narrative: plan care patient is to obtain a urine sample to assess hydration status we will also swab him today for COVID and flu since he is complaining of body aches along with nausea vomiting and diarrhea. We will also provide him a dose of Zofran to see if this helps with the vomiting. Will most likely discharge him home with a prescription for Zofran. Differential Diagnosis Differential Diagnosis: Differential diagnosis: Appendicitis, gallbladder disease,, pancreatitis, lower lobe pneumonia,AAA, AMI or ACS, DKA, diverticulitis. Vital Signs Vital Signs: Vital Signs Temperature 36.6 C 02/21/25 11:31 Pulse Rate 82 02/21/25 11:31 Respiratory Rate 16 02/21/25 11:31 Blood Pressure 121/60 02/21/25 11:31 Pulse Oximetry 100 02/21/25 11:31 Oxygen Delivery Room Air 02/21/25 11:31 Temperature 36.6 C 02/21/25 11:31 Pulse Rate 82 02/21/25 11:31 Respiratory Rate 16 02/21/25 11:31 Blood Pressure 121/60 02/21/25 11:31 Pulse Oximetry 100 02/21/25 11:31 Oxygen Delivery Room Air 02/21/25 11:31 Critical Care Time Critical Care Time Critical Care Time: No Discharge Plan Discharge Clinical Impression: Gastroenteritis, Nausea, vomiting and diarrhea Patient Disposition: Home Condition: Stable Instructions: Antibiotic Form, Gastroenteritis (ED) Additional Instructions: Give fluids to prevent dehydration. Low-fat diet with increase in fluids, such as sports drinks, gelatin, soups, to prevent dehydration. Other suggestions include chicken noodle soup, Rice, bread, crackers, cereal, yogurt bananas, and applesauce. High sugar foods and drinks (soda and juices), can worsen diarrhea. Eating fried foods can worsen diarrhea. For vomiting: The parsons is to give small amounts at a time. When the stomach is upset, and will vomit when it fills. Prevent this by giving only 1 cup at a time. And to give more in 15 minutes. This will keep the stomach empty, so the patient is less likely to vomit. If you do not vomit after this, you can slowly increase the amount in the cup each time. Medicines to stop vomiting can help. Call your doctor or go to the ER if your condition worsens or: Fever (temperature greater than 10 2?F [39?C]) occurs. There is blood in the stool diarrhea or if the stool is black. Lots of diarrhea occurs. Lots of vomiting occurs or the vomit is bloody or green or looks like chocolate or coffee. The belly looks very full or big. Symptoms of dehydration occurs (inside of the mouth looks sticky, urinating less, weakness, tiredness, pale color, eyes look hollow or sucken). Abdominal pain is worse. Patient Language: Swazi Prescriptions: New ondansetron 4 mg tablet,disintegrating 4 mg PO Q6H PRN (Reason: nausea and vomiting) 3 Days Qty: 12 0RF No Action Taltz Autoinjector 80 mg/mL auto-injector 80 mg SUBCUT MONTHLY citalopram 40 mg tablet 40 mg PO DAILY pantoprazole 40 mg tablet,delayed release (DR/EC) PO ergocalciferol (vitamin D2) 1,250 mcg (50,000 unit) capsule aripiprazole 10 mg tablet bupropion HCl 300 mg tablet extended release 24 hr PO albuterol sulfate [Ventolin HFA] 90 mcg/actuation HFA aerosol inhaler 2 puff inhalation QID PRN (Reason: shortness of breath or wheezing) Qty: 8.5 0RF ondansetron 4 mg tablet,disintegrating 4 mg PO Q8H PRN (Reason: nausea and vomiting) Qty: 12 0RF eplerenone 25 mg tablet Follow-up/Referrals: PHYSICIAN,[employer] [Primary Care Provider, Internal Medicine] Stand Alone Forms: Work/School Release IP Time of Disposition: 12:36
[2025-02-21] MEDS: ONDANSETRON HCL ODT 4 MG TABLET PO (12:14)
[2025-02-23 11:49] LABS: EDCOVIDSCREEN Negative (Negative)
[2025-02-23 11:50] LABS: EDUAAPPEAR Clear; EDUABILI Negative (Negative); EDUABLOOD Negative (Negative); EDUACOLOR1 Dark; EDUAGLUCOSE Negative (Negative); EDUAKETONE Negative (Negative); EDUALEUKO Negative (Negative); EDUANITRATE Negative (Negative); EDUAPH 6.5; EDUAPROTEIN Negative (Negative); EDUASPGRAVITY 1.020; EDUAUROBILI 0.2
[2025-02-23 11:50] LABS: EDINFLUASCREEN Negative (Negative); EDINFLUBSCREEN Negative (Negative)
== END 2025-02-21 12:45 | disposition home or self-care (01) ==
PROVIDERS: Emergency Provider Nurse Practitioner Family
DX: K52.9 Noninfective gastroenteritis and colitis, unspecified (principal); Z20.822 Contact with and (suspected) exposure to COVID-19; J45.909 Unspecified asthma, uncomplicated; L40.9 Psoriasis, unspecified
CPT/HCPCS: 81003; 87426; 87804; 99213; A9270; G0463

== ENCOUNTER 2025-04-01 13:21 | Emergency (ER) | payer OTHER, SELFPAY ==
[2025-04-01 13:50] VITALS: BP 134/72; PULSE 93; RESP 16; TEMP 36.8; O2SAT 99
[2025-04-01 14:20] LABS: EDCOVIDSCREEN Negative (Negative); EDINFLUASCREEN Negative (Negative); EDINFLUBSCREEN Negative (Negative)
--- NOTE | 2025-04-01 14:22 | ED_ITS ---
HPI - URI/Sore Throat General Chief Complaint: Upper Respiratory Infection Stated Complaint: Flu like symptoms / needs Dr note Time Seen by Provider: 04/01/25 14:26 Source: patient and RN notes reviewed Mode of arrival: ambulatory Limitations: no limitations History of Present Illness HPI Narrative: 19-year-old male presents with concern for 2 day history of vomiting and diarrhea. He last vomited yesterday. He has been having diarrhea every couple of hours. He denies decreased urine frequency. Denies abdominal pain or fever. MD elicited complaint: other (Vomiting and diarrhea) Related Data Home Medications ?Medication ?Instructions ?Recorded ?Confirmed ?Last Taken ?Type citalopram 40 mg tablet 40 mg PO DAILY 03/01/2103/0403/01/21 History ixekizumab 80 mg/mL subcutaneous 80 mg subcut MONTHLY 12/14/22 03/28/24 Unknown History auto-injector (Taltz Autoinjector) aripiprazole 10 mg tablet mg 07/16/24 Unknown History bupropion HCl 300 mg 24 hr tablet, mg PO 07/16/24 Unk nown History extended release ergocalciferol (vitamin D2) 1,250 07/16/24 Unknown H istory mcg (50,000 unit) capsule pantoprazole 40 mg tablet,delayed mg PO 07/16/24 Unkn own History release eplerenone 25 mg tablet mg 02/21/25 Unknown History aripiprazole 15 mg tablet mg 04/01/25 Unknown History Allergies Allergy/AdvReac Type Severity Reaction Status Date / Time No Known Allergies Allergy Verified 04/01/25 13:24 Review of Systems Review of Systems: CONSTITUTIONAL: Denies malaise, chills, sweats, or fever. ENT: Denies rhinorrhea, congestion, sinus pain, otalgia or sore throat. CARDIOVASCULAR: Denies chest pain, palpitations, or edema. RESPIRATORY: Denies cough or dyspnea. GASTROINTESTINAL: Denies abdominal pain, bloody, or mucous stools. Reports nausea, vomiting, diarrhea GENITOURINARY: Denies dysuria or hematuria. MUSCULOSKELETAL: Denies myalgia. NEUROLOGIC: Denies headache. All systems reviewed & are unremarkable except as noted in HPI and below PMFSH Past Medical History Medical History (Updated 04/01/25 @ 14:34 by Leslie Mullen APRN) Psoriasis Asthma Surgical History Surgical History (Updated 02/21/25 @ 11:57 by Karla Renae APRN) Hx of adenoidectomy Hx of tonsillectomy Family History Family History Mother Asthma Sibling Asthma Social History Social History Second hand tobacco smoke exposure: No Comments At time of signature, agree with nursing past medical, surgical, social and family history. There is no relevant family history pertinent to the presenting complaint Exam Narrative: GENERAL: Well-appearing, well-nourished, and in no acute distress. HEAD: Normocephalic, atraumatic. EYES: PERRLA, conjunctivae clear, and EOMI. ENT: Nares clear, turbinates pink, no rhinorrhea or epistaxis. Mucous membranes moist. Oropharynx without edema, erythema, or lesions. Tonsils not enlarged and without exudate. NECK: Supple. No lymphadenopathy CHEST: Speaks in full sentences. No respiratory distress. HEART: Regular rate and rhythm. ABDOMEN: Soft, flat, nondistended, nontender. No guarding, rebound tenderness, or rigidity. No pulsatile masses. Bowel sounds present in all four quadrants. SKIN: Warm, dry, no rash. NEURO: Alert and oriented x3. PSYCH: Normal mood and affect Course Course Emergency Course: Patient is aware of diagnosis, understands and agrees to treatment plan. Anticipatory guidance given. Patient agrees to follow-up as directed and is aware of reasons to seek care at the emergency department. Portions of this record may have been created with voice recognition software Level of Care: [facility] Visit MDM Differential Diagnosis Differential Diagnosis: I evaluated this patient in the [facility]. History is obtained from patient who is an independent historian and physical exam was performed.? Available medical records were reviewed. ? Exam findings and relevant testing show no acute concerns or changes; patient is non-toxic appearing and is in no distress. ? No evidence of pancreatitis, AAA, cholecystitis, choledocholithiasis, cholangitis, mesenteric ischemia, small bowel obstruction, diverticulitis, colitis, appendicitis, or pelvic etiology. Patient has no history of peptic ulcer, H. pylori, chronic aspirin NSAID or corticosteroid use, chronic alcohol use, no history of inflammatory bowel disease, no history of active abdominal infection or malignancy. Patient has no history of hernia or intra-abdominal surgeries, patient denies absence of flatus, constipation, melena, hematemesis. Patient denies post-prandial pain. No pain-out of proportion. Differential diagnosis and treatment plan were discussed with the patient. Patient agrees with discussion and after shared medical decision making agrees with plan of care. All questions were answered to the patient's satisfaction. Patient is appropriate for outpatient treatment and follow-up. Lab Data Labs: Lab Results 04/01/25 Range/Units 13:55 POC Influenza A Ag Negative (Negative) POC Influenza B Ag Negative (Negative) POC SARS CoV-2 Ag Negative (Negative) Discharge Plan Discharge Clinical Impression: Nausea vomiting and diarrhea Patient Disposition: Home Condition: Stable Instructions: Acute Diarrhea (ED) Additional Instructions: Stay hydrated. Take small sips of fluid containing electrolytes frequently. You should go to the hospital if you experience return of persistent nausea and vomiting that does not resolve and does not allow you to tolerate any food or fluids, persistent fevers for greater than 2-3 more days, increasing abdominal pain that persists despite medications, persistent diarrhea, dizziness, syncope (fainting), or for any other concerns. Patient Language: Welsh Prescriptions: New ondansetron 4 mg tablet,disintegrating 4 mg PO Q8H PRN (Reason: nausea and vomiting) Qty: 10 0RF No Action Taltz Autoinjector 80 mg/mL auto-injector 80 mg SUBCUT MONTHLY citalopram 40 mg tablet 40 mg PO DAILY pantoprazole 40 mg tablet,delayed release (DR/EC) PO ergocalciferol (vitamin D2) 1,250 mcg (50,000 unit) capsule aripiprazole 10 mg tablet bupropion HCl 300 mg tablet extended release 24 hr PO ondansetron 4 mg tablet,disintegrating 4 mg PO Q8H PRN (Reason: nausea and vomiting) Qty: 12 0RF eplerenone 25 mg tablet ondansetron 4 mg tablet,disintegrating 4 mg PO Q6H PRN (Reason: nausea and vomiting) 3 Days Qty: 12 0RF aripiprazole 15 mg tablet Follow-up/Referrals: Denis,DO Luis [Primary Care Provider] Stand Alone Forms: Work/School Release IP Time of Disposition: 14:35
== END 2025-04-01 14:44 | disposition home or self-care (01) ==
PROVIDERS: Emergency Provider Nurse Practitioner; PCP Student in an Organized Health Care Education/Training Program
DX: R11.10 Vomiting, unspecified (principal); R19.7 Diarrhea, unspecified; J45.909 Unspecified asthma, uncomplicated; Z20.822 Contact with and (suspected) exposure to COVID-19
CPT/HCPCS: 87426; 87804; 99213; G0463